=== PATIENT | male | born 1965 | race Caucasian/White ===

== ENCOUNTER 2022-06-22 14:22 | Observation (INO) ==
[2022-06-22 15:10] LABS: Basophils # (auto) 0.09 K/uL (0-0.2); Basophils % (auto) 0.9 %; Eosinophils # (auto) 0.08 K/uL (0-0.50); Eosinophils % (auto) 0.8 %; Hematocrit (blood only) 41.5 % (40.1-51.0); Hemoglobin 14.3 g/dl (14.0-18.0); Immature Granulocytes # (auto) 0.04 K/uL (0.00-0.02); Immature Granulocytes % (auto) 0.4 %; Lymphocytes # (auto) 2.03 K/uL (1.2-3.4); Lymphocytes % (auto) 19.3 %; Mean Corpuscular Hemoglobin 29.9 pg (25.0-34.0); Mean Corpuscular Hgb Conc 34.5 g/dL (32.0-36.0); Mean Corpuscular Volume 86.6 fL (80.0-100.0); Mean Platelet Volume 10.7 fL (9.4-12.4); Monocytes # (auto) 1.88 K/uL (0.24-0.82); Monocytes % (auto) 17.8 %; Neutrophils # (auto) 6.42 K/uL (1.4-6.5); Neutrophils % (auto) 60.8 %; Platelet Count 353 K/uL (130-400); RDW Coefficient of Variation 15.9 % (11.5-14.5); RDW Standard Deviation 50.6 fL (36.4-46.3); Red Blood Count 4.79 M/uL (4.63-6.08); White Blood Count 10.54 K/ul (4.8-10.8)
--- NOTE | 2022-06-22 15:21 | Emergency Department Note ---
History of Present Illness General Chief complaint: Chest Pain Stated complaint: SHORTNESS OF BREATH, CHEST PAIN Time Seen by Provider: 06/22/22 14:59 Source: patient, RN notes reviewed and old records reviewed Mode of arrival: ambulatory Limitations: no limitations History of Present Illness Maximum Pain Intensity: 4 This patient is a 57-year-old male who has a history of metastatic non-small cell lung cancer comes in after leaving having left-sided chest pain. It radiates to his back he is also been short of breath. The chest pain has been for couple months and the shortness of breath has been for about 3 weeks just had some hoarseness for about the same time. No sore throat. No fever that he knows of he has had some cough which has been chronic he said the pain got worse last night so he came here. He was initially diagnosed with lung cancer in October 2018 it was stage IV he had mets to his brain he had gamma knife surgery he said he did 3 months of Keytruda and chemo and after that did they did another 6 to 12 months okay Truvada and they saw something on his lung so they stopped the Keytruda August 2020 he had follow-up CT scans and MRIs about every 3 months but he said there is no changes so he stopped going and he has not been seen by anybody for about a year. No history of pneumothorax he may have had a small blood clot at 1 point he is on no blood thinners. He is not currently taking any medication Home Medications Medication Instructions Recorded Confirmed Type nebulizers #1 ea 09/25/19 05/12/20 Rx ipratropium 0.5 mg-albuterol 3 mg 3 ml inhalation Q8H PRN shortness 10/21/19 05/12/20 Rx (2.5 mg base)/3 mL nebulization of breath or wheezing #180 mL soln nebulizers (AeroEclipse II #1 ea 10/21/19 05/12/20 Rx Nebulizer) omeprazole 20 mg capsule,delayed 20 mg PO QAM 10/21/19 05/12/20 History release nebulizer accessories #1 ea 12/09/19 05/12/20 Rx nebulizer accessories #1 ea 05/12/20 05/12/20 Rx Allergies Allergy/AdvReac Type Severity Reaction Status Date / Time No Known Allergies Allergy Unknown Verified 05/12/20 08:50 Past Med/Surg History Medical History COPD (chronic obstructive pulmonary disease) Coronary artery disease S/p three stents Heartburn FREQUENT History of chemotherapy History of pneumonia FEW WEEKS AGO, RESOLVED Metastatic cancer to brain Metastatic non-small cell lung cancer DX 2018 Status post gamma knife treatment 10/16/17 Surgical History H/O arthroscopy of right knee History of bronchoscopy 09/28/17 History of heart artery stent Stents x 3 History of surgery Right ankle as a child History of surgery PORT, RIGHT UPPER CHEST Hx of cardiac catheterization 1ST CATH 2005 (X2 STENTS- LAD and OM), MOST RECENT CATH 2015 - (STENT X1 to RCA) S/P bronchoscopy with biopsy (10/31/19) Navigational Bronchoscopy with Biopsy Dr. Freeman 10-31-19 Family History Mother , 83yo Dementia Father , 67yo Diabetes Myocardial infarction Melanoma Cancer Brother , 57yo Cerebral aneurysm Brother Polio Sister Stroke Sister No problems noted. Sister Cancer Son No problems noted. 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 [place] Feels Safe at Home: Yes caffeine: Yes (7 cups/day) during the past year weight has: remained stable Assistive Devices: Glasses Review of Systems A total of 10 systems reviewed and were otherwise negative Physical Exam Vital Signs Vital Signs - 24 hr 06/22/22 14:22 06/22/22 14:53 06/22/22 14:53 Temperature 36.8 C Temperature Source Temporal Artery Scan Pulse Rate 101 H 94 H Pulse Rate [Apical] Pulse Rhythm Regular Pulse Rhythm [Apical] Pulse Strength [Apical] Respiratory Rate 18 18 Respiratory Effort / Characteristics Respiratory Depth Normal Respiratory Pattern Blood Pressure 122/82 Blood Pressure [Right Arm] Blood Pressure Mean 95 Blood Pressure Mean [Right Arm] Blood Pressure Position [Right Arm] Pulse Oximetry 98 96 Oxygen Delivery Method Room Air Room Air Room Air Oxygen Flow Rate 96 Sepsis Recent Fever Within 48 Hours No Sepsis New/Unexplained Change in Mental Status No Sepsis Action Taken by Nursing No Action Required 06/22/22 14:38 06/22/22 14:45 06/22/22 14:45 Temperature Temperature Source Pulse Rate 95 H 95 H Pulse Rate [Apical] Pulse Rhythm Pulse Rhythm [Apical] Pulse Strength [Apical] Respiratory Rate 25 H 20 Respiratory Effort / Characteristics Respiratory Depth Respiratory Pattern Blood Pressure 120/84 Blood Pressure [Right Arm] Blood Pressure Mean 96 Blood Pressure Mean [Right Arm] Blood Pressure Position [Right Arm] Pulse Oximetry Oxygen Delivery Method Oxygen Flow Rate Sepsis Recent Fever Within 48 Hours Sepsis New/Unexplained Change in Mental Status Sepsis Action Taken by Nursing 06/22/22 15:00 06/22/22 15:00 06/22/22 15:30 Temperature Temperature Source Pulse Rate 94 H Pulse Rate [Apical] Pulse Rhythm Pulse Rhythm [Apical] Pulse Strength [Apical] Respiratory Rate 17 Respiratory Effort / Characteristics Respiratory Depth Respiratory Pattern Blood Pressure 121/90 119/72 Blood Pressure [Right Arm] Blood Pressure Mean 100 87 Blood Pressure Mean [Right Arm] Blood Pressure Position [Right Arm] Pulse Oximetry Oxygen Delivery Method Oxygen Flow Rate Sepsis Recent Fever Within 48 Hours Sepsis New/Unexplained Change in Mental Status Sepsis Action Taken by Nursing 06/22/22 15:30 06/22/22 14:22 06/22/22 14:53 Temperature Temperature Source Pulse Rate 93 H Pulse Rate [Apical] 89 Pulse Rhythm Pulse Rhythm [Apical] Regular Pulse Strength [Apical] Normal Respiratory Rate 20 22 Respiratory Effort / Characteristics Non-Labored Non-Labored Respiratory Depth Normal Respiratory Pattern Regular Blood Pressure Blood Pressure [Right Arm] 159/110 H Blood Pressure Mean Blood Pressure Mean [Right Arm] 126 Blood Pressure Position [Right Arm] Lying Pulse Oximetry 97 97 Oxygen Delivery Method Room Air Room Air Oxygen Flow Rate Sepsis Recent Fever Within 48 Hours Sepsis New/Unexplained Change in Mental Status Sepsis Action Taken by Nursing General: Well developed well nourished chronically ill-appearing older male who is somewhat hoarse but alert O x3 answers all questions appropriately in no acute distress, breathing comfortably on room air. Normal speech HEENT: Normal cephalic atraumatic. Pupils are equal round and reactive to light. Extraocular movements are intact. Oropharynx is pink with moist mucous membranes. No swelling of the mouth lips or tongue. Neck: Supple with a midline trachea. No meningeal signs or stiffness, no JVD or bruits. No Stridor. Chest: Scattered wheezes to auscultation bilaterally butgood air movement. No increased work of breathing. Heart: Regular rate and rhythm without murmurs or gallops. Abdomen: Soft nontender, nondistended without rebound guarding or rigidity. Extremities: No cyanosis clubbing or edema. No calf tenderness or assymetry Spine/Back. Non tender to palpation. No CVA tenderness Skin: Good turgor without rashes. Neurologic exam: Cranial nerves two through 12 are intact. Motor and sensation are intact and symmetrical throughout. Course Administered Medications Discontinued Medications Ioversol (Optiray 300 500ml) 110 ml IV ONCE ONE Stop: 06/22/22 16:38 Last Admin: 06/22/22 16:38 Dose: 110 ml Documented By: EVENS Morphine Sulfate (Morphine Sulfate 2 Mg/Ml Carp) 2 mg IV NOW STA Stop: 06/22/22 17:12 Last Admin: 06/22/22 17:36 Dose: 2 mg Documented By: JASON Ondansetron HCl (Ondansetron Inj 2 Mg/Ml 2 Ml Vial) 4 mg IV NOW STA Stop: 06/22/22 17:12 Last Admin: 06/22/22 17:36 Dose: 4 mg Documented By: JASON Medical Decision Making Differential Diagnosis Lung cancer, pneumothorax, infection, complication related to chemo or cancer, pneumothorax, PE, acute coronary syndrome, arrhythmia Medical Records Attestation: I reviewed the patient's medical records. Home Medications Current Medication List: was personally reviewed by me Laboratory Data Attestation: I reviewed the patient's lab results. Result diagrams: 06/22/22 14:45 06/22/22 14:45 Lab Results 06/22/22 06/22/22 06/22/22 Range/Units 14:45 14:45 14:45 WBC 10.54 (4.8-10.8) K/ul RBC 4.79 (4.63-6.08) M/uL Hgb 14.3 (14.0-18.0) g/dl Hct 41.5 (40.1-51.0) % MCV 86.6 (80.0-100.0) fL MCH 29.9 (25.0-34.0) pg MCHC 34.5 (32.0-36.0) g/dL RDW Std Deviation 50.6 H (36.4-46.3) fL RDW Coeff of Kiana 15.9 H (11.5-14.5) % Plt Count 353 (130-400) K/uL MPV 10.7 (9.4-12.4) fL Immature Gran % (Auto) 0.4 % Neut % (Auto) 60.8 % Lymph % (Auto) 19.3 % [place] % (Auto) 17.8 % Eos % (Auto) 0.8 % Baso % (Auto) 0.9 % Neut # (Auto) 6.42 (1.4-6.5) K/uL Lymph # (Auto) 2.03 (1.2-3.4) K/uL [place] # (Auto) 1.88 H (0.24-0.82) K/uL Eos # (Auto) 0.08 (0-0.50) K/uL Baso # (Auto) 0.09 (0-0.2) K/uL Immature Gran # (Auto) 0.04 H (0.00-0.02) K/uL PT 10.9 (9.0-12.0) Seconds INR 1.0 (0.9-1.1) APTT 30.1 (21.0-31.0) Seconds PTT Ratio 1.1 D-Dimer 1680 H* (0-500) ug/L FEU Sodium 133 L (136-145) mmol/L Potassium 4.0 (3.5-5.1) mmol/L Chloride 102 (98-107) mmol/L Carbon Dioxide 23 (21-32) mmol/L Anion Gap 8 (3-11) BUN 10 (6-23) mg/dl Creatinine 0.56 L (0.6-1.4) mg/dl Est Cr Clr Drug Dosing 146.7 ml/min Est GFR ( Amer) 131.2 ml/min Est GFR (Non-Af Amer) 113.2 ml/min BUN/Creatinine Ratio 17.9 (10-20) Glucose 95 (70-99(Fasting)) mg/dl Calcium 9.8 (8.5-10.1) mg/dl Magnesium 1.7 (1.7-2.4) mg/dl Total Bilirubin 0.5 (0.2-1.0) mg/dl AST 43 H (13-39) U/L ALT 43 (7-52) U/L Alkaline Phosphatase 176 H (34-104) U/L Troponin I High Sens 3.8 (0-20) pg/ml B-Natriuretic Peptide (0-100) pg/ml Total Protein 6.7 (6.0-8.3) gm/dl Albumin 3.5 (3.4-5.0) gm/dl Globulin 3.2 (2.5-4.0) gm/dl Albumin/Globulin Ratio 1.1 (0.9-2) SARS-CoV-2 (PCR) (Negative) Influenza Type A (PCR) (Neg) Influenza Type B (PCR) (Neg) RSV (RT-PCR) (Neg) 06/22/22 06/22/22 Range/Units 14:45 17:26 WBC (4.8-10.8) K/ul RBC (4.63-6.08) M/uL Hgb (14.0-18.0) g/dl Hct (40.1-51.0) % MCV (80.0-100.0) fL MCH (25.0-34.0) pg MCHC (32.0-36.0) g/dL RDW Std Deviation (36.4-46.3) fL RDW Coeff of Kiana (11.5-14.5) % Plt Count (130-400) K/uL MPV (9.4-12.4) fL Immature Gran % (Auto) % Neut % (Auto) % Lymph % (Auto) % [place] % (Auto) % Eos % (Auto) % Baso % (Auto) % Neut # (Auto) (1.4-6.5) K/uL Lymph # (Auto) (1.2-3.4) K/uL [place] # (Auto) (0.24-0.82) K/uL Eos # (Auto) (0-0.50) K/uL Baso # (Auto) (0-0.2) K/uL Immature Gran # (Auto) (0.00-0.02) K/uL PT (9.0-12.0) Seconds INR (0.9-1.1) APTT (21.0-31.0) Seconds PTT Ratio D-Dimer (0-500) ug/L FEU Sodium (136-145) mmol/L Potassium (3.5-5.1) mmol/L Chloride (98-107) mmol/L Carbon Dioxide (21-32) mmol/L Anion Gap (3-11) BUN (6-23) mg/dl Creatinine (0.6-1.4) mg/dl Est Cr Clr Drug Dosing ml/min Est GFR ( Amer) ml/min Est GFR (Non-Af Amer) ml/min BUN/Creatinine Ratio (10-20) Glucose (70-99(Fasting)) mg/dl Calcium (8.5-10.1) mg/dl Magnesium (1.7-2.4) mg/dl Total Bilirubin (0.2-1.0) mg/dl AST (13-39) U/L ALT (7-52) U/L Alkaline Phosphatase (34-104) U/L Troponin I High Sens (0-20) pg/ml B-Natriuretic Peptide 37 (0-100) pg/ml Total Protein (6.0-8.3) gm/dl Albumin (3.4-5.0) gm/dl Globulin (2.5-4.0) gm/dl Albumin/Globulin Ratio (0.9-2) SARS-CoV-2 (PCR) NEGATIVE (Negative) Influenza Type A (PCR) Negative (Neg) Influenza Type B (PCR) Negative (Neg) RSV (RT-PCR) Negative (Neg) Imaging Data Attestation: I personally reviewed and interpreted this imaging study as follows: My Impression: Chest x-raythere is a large mass in the left hilum. This is concerning for a lung tumor, particularly given his history. I do not see any pneumothorax or CHF Radiologist's Impression: Chest X-Ray 06/22/22 14:53 XR chest 1V portable HISTORY: 57 years-old Male SOB acute shortness of breath. Follow-up study in a patient with reported known history of lung cancer. COMPARISON: Chest CT 04/25/2021 TECHNIQUE: Portable AP view of the chest FINDINGS: Cardiac silhouette is normal in size. Right IJ [id number] catheter. No pneumothorax. Emphysema with chronic fibrotic changes. There is a 9.3 cm masslike consolidation within the left perihilar/suprahilar distribution. There are adjacent ill-defined consolidative opacities centered around the left midlu ng. Bones appear to be grossly intact. Hiatal hernia. IMPRESSION: 1. 9.3 cm masslike consolidation centered around the left hilum is suggestive of malignancy. 2. Left midlung predominant consolidative opacities may represent postobstructive pneumonitis. 3. Emphysema. 4. Small hiatal hernia. ACT 112: Negative or not required by law. The above report was generated using voice recognition software. It may contain grammatical, syntax or spelling errors. Electronically signed by: Grayson Ruiz M.D. 06/22/2022 3:37 PM Chest CTA 06/22/22 16:06 CT angio chest PE protocol CT DOSE: 544.63 mGy.cm HISTORY: 57 years-old Male with PE. Acute shortness breath in a patient with history of lung cancer TECHNIQUE: Multiple CTA images of the chest were obtained after the intravenous administration of 110 ml Optiray. Coronal and sagittal MIPS were obtained from the axial data set and were submitted for review. All measurements were obtained according to NASCET criteria. A dose lowering technique was utilized adhering to the principles of ALARA. COMPARISON: Chest radiograph of same day, chest CT 04/25/2021, CT abdomen and pelvis 12/22/2020 FINDINGS: CTA: The heart is normal in size. Trace pericardial effusion. Moderate coronary artery calcifications. No thoracic aortic aneurysm or dissection. There is marked narrowing of the left main pulmonary artery and left upper lobar, segmental and subsegmental branches secondary to the large mass as described below. No definite pulmonary emboli are identified. CT CHEST: Unchanged 1.2 cm nodule adjacent to the upper left esophagus on image 302. Metastatic nodules within the upper mediastinum include a 1.6 x 2.0 cm nodule adjacent to the proximal left subclavian and common carotid arteries. Several additional nodules also present. 9 mm epicardial nodule noted on image 141. There is a large heterogeneous infiltrative mass involving the mediastinum, left hilum and left upper lobe and lingula crossing the fissure into the superior segment of the left lower lobe which measures approximately 11.7 x 10.8 x 9 cm. The mass encases and narrows the left main pulmonary artery and distal branches as well as the left upper pulmonary vein. There is encasement with narrowing of the left upper lobe bronchi. Several distal bronchi are opacified. There is also rightward deviation with narrowing of the trachea and left mainstem bronchus. There is intralobular septal thickening throughout the left upper lobe and lingula with irregular groundglass and consolidative opacities and nodular densities. Irregular 4.3 cm opacity of the lingula but the fissure on image 161. There are numerous pleural implants noted throughout the left hemithorax with small malignant left pleural effusion. Subpleural nodules measuring up to 1.6 cm on image 218. Moderate pulmonary emphysema. There are no new suspicious nodules noted within the right lung. Diffuse esophageal wall thickening. The mass abuts and displaces the midthoracic esophagus. Moderate sized hiatal hernia. Thickening of the bilateral adrenal glands, unchanged. Innumerable hepatic metastasis, new from prior measuring up to approximately 2.6 cm. Mild gynecomastia. No destructive bone lesions are identified. Chronic mild superior endplate compression deformities of the upper thoracic spine. IMPRESSION: 1. There is a large heterogeneous infiltrative mass involving the mediastinum, left hilum, left upper lobe and lingula crossing into the superior segment of the left lower lobe measuring up to 11.7 cm. Primary bronchogenic carcinoma is the diagnosis of exclusion. The mass encases and narrows the adjacent bronchi, pulmonary arteries and veins. 2. No pulmonary emboli identified. 3. Postobstructive pneumonitis of the left upper lobe and lingula with findings suggestive of lymphangitic carcinomatosis and probable left upper lobe and lingular satellite pulmonary metastasis. 4. Lymphatic metastasis with left-sided pleural metastatic disease and small malignant left pleural effusion. 5. Innumerable hepatic metastasis. 6. Incidental findings as above. ACT 112: Negative or not required by law. The above report was generated using voice recognition software. It may contain grammatical, syntax or spelling errors. Electronically signed by: Grayson Ruiz M.D. 06/22/2022 5:02 PM ECG Data Attestation: I personally reviewed and interpreted this ECG as follows: Indication: + chest pain and + SOB/dyspnea Rate (beats per minute): 98 Rhythm: + normal sinus ECG Intervals/blocks: + Normal QRS, + Normal QT and + Normal MD ECG [place]: + Normal ECG ST segments: + Normal ST segments ECG Findings: no PACs or no PVCs Comparison ECG Date: from (10/27/18) Change: no significant change MDM Narrative This patient is a 57-year-old male who comes in after having chest pain and shortness of breath. It is been going on for several weeks to months is gotten worse he stopped following up with oncology and has metastatic cancer so I am concerned it could be related to that he is also at risk for infection or blood clot or cardiac disease. He was placed on a monitor car operator and before. EKG shows normal sinus rhythm without ischemic changes. Chest x-ray was obtained and he has a lung mass in the left lung field. No pneumothorax. His D-dimer was elevated I did a CTA of his chest and he has a large invasive bronchogenic appearing tumor. He is given morphine 4 mg IV and Zofran 4 mg IV. EKG does not suggest acute coronary syndrome or arrhythmia. His troponin is not elevated. The rest of his labs look good. I do think he should be admitted for pain pain management and further treatment and evaluation as at this point he has been getting no care for this for the past year or so. I have consulted the hospitalist to see him in ER for these measures Continuous cardiac monitoring: Orders placed in EMR for continuous cardiac monitoring. Upon my interpretation patient noted to be in normal sinus with a rate of 90 Impression & Plan Chest pain, Tobacco abuse, Lung tumor, Metastatic non-small cell lung cancer, COVID Discharge Plan Visit Data Chief Complaint: Chest Pain Stated Complaint: SHORTNESS OF BREATH, CHEST PAIN ED Provider: Atilio Elizabeth Discharge Problem: Chest pain, Tobacco abuse, Lung tumor, Metastatic non-small cell lung cancer, COVID Forms Stand Alone Forms: [facility] [employer] Prescriptions Prescriptions: No Action (DME) nebulizers misc See Rx Instructions .ROUTE .MEDSUPPLY Qty: 1 0RF Rx Instructions: Q 4HR WITH TUBING & SUPPLIES - COPD J44.9 ipratropium-albuterol 0.5 mg-3 mg(2.5 mg base)/3 mL solution for nebulization 3 ml INH Q8H PRN (Reason: shortness of breath or wheezing) Qty: 180 2RF (DME) AeroEclipse II Nebulizer Misc See Rx Instructions .ROUTE .MEDSUPPLY Qty: 1 0RF Rx Instructions: As directed budesonide-formoterol [Symbicort] 160-4.5 mcg/actuation HFA aerosol inhaler 0RF tiotropium bromide [Spiriva Respimat] 1.25 mcg/actuation mist 0RF (DME) nebulizer accessories Kit See Rx Instructions .ROUTE .MEDSUPPLY Qty: 1 0RF Rx Instructions: TUBING & SUPPLIES : (DME) nebulizer accessories Kit See Rx Instructions .ROUTE .MEDSUPPLY Qty: 1 0RF Rx Instructions: Nebulizer kits DX COPD J44.9 omeprazole 20 mg Capsule,Delayed Release(Dr/Ec) 20 mg PO QAM Referrals Referrals: Rahat Caballero [Primary Care Provider] -
[2022-06-22 15:35] LABS: D Dimer 1680 ug/L FEU (0-500)
[2022-06-22 15:36] LABS: Troponin I High Sensitivity 3.8 pg/ml (0-20)
[2022-06-22 15:37] LABS: Partial Thromboplastin Ratio 1.1; Partial Thromboplastin Time 30.1 Seconds (21.0-31.0); Prothrombin Time 10.9 Seconds (9.0-12.0)
--- NOTE | 2022-06-22 15:39 | XRay Report ---
XR chest 1V portable HISTORY: 57 years-old Male SOB acute shortness of breath. Follow-up study in a patient with reported known history of lung cancer. COMPARISON: Chest CT 04/25/2021 TECHNIQUE: Portable AP view of the chest FINDINGS: Cardiac silhouette is normal in size. Right IJ [id number] catheter. No pneumothorax. Emphysema wit h chronic fibrotic changes. There is a 9.3 cm masslike consolidation within the left perihilar/suprah ilar distribution. There are adjacent ill-defined consolidative opacities centered around the left mi dlung. Bones appear to be grossly intact. Hiatal hernia. IMPRESSION: 1. 9.3 cm masslike consolidation centered around the left hilum is suggestive of malignancy. 2. Left midlung predominant consolidative opacities may represent postobstructive pneumonitis. 3. Emphysema. 4. Small hiatal hernia. ACT 112: Negative or not required by law. The above report was generated using voice recognition software. It may contain grammatical, syntax o r spelling errors. Electronically signed by: Grayson Ruiz M.D. 06/22/2022 3:37 PM
[2022-06-22 15:40] LABS: Albumin Globulin Ratio 1.1 (0.9-2); Albumin Level 3.5 gm/dl (3.4-5.0); BUN Creatinine Ratio 17.9 (10-20); Bilirubin,Total 0.5 mg/dl (0.2-1.0); Calcium 9.8 mg/dl (8.5-10.1); Creatinine Clr Calc Pharmacy 146.7 ml/min; Est GFR (African American) 131.2 ml/min; Est GFR (Non-African American) 113.2 ml/min; Globulin 3.2 gm/dl (2.5-4.0); Magnesium 1.7 mg/dl (1.7-2.4); Total Protein 6.7 gm/dl (6.0-8.3)
--- NOTE | 2022-06-22 16:12 | Electrocardiogram Report ---
Test Reason : Blood Pressure : / mmHG Vent. Rate : 098 BPM Atrial Rate : 098 BPM P-R Int : 140 ms QRS Dur : 076 ms QT Int : 338 ms P-R-T Axes : 085 059 081 degrees QTc Int : 431 ms Normal sinus rhythm Normal ECG When compared with ECG of 26-SEP-2019 15:13, Premature supraventricular complexes are no longer Present Confirmed by Rahat Castro ([id number]) on 06/22/2022 4:12:18 PM Referred By: ER Confirmed By:Rahat Castro
[2022-06-22] MEDS ORDERED: OPTIRAY 300 500mL IV ONE (16:37)
--- NOTE | 2022-06-22 17:04 | CT Scan Report ---
CT angio chest PE protocol CT DOSE: 544.63 mGy.cm HISTORY: 57 years-old Male with PE. Acute shortness breath in a patient with history of lung cancer TECHNIQUE: Multiple CTA images of the chest were obtained after the intravenous administration of 110 ml Optiray. Coronal and sagittal MIPS were obtained from the axial data set and were submitted for review. All measurements were obtained according to NASCET criteria. A dose lowering technique was u tilized adhering to the principles of ALARA. COMPARISON: Chest radiograph of same day, chest CT 04/25/2021, CT abdomen and pelvis 12/22/2020 FINDINGS: CTA: The heart is normal in size. Trace pericardial effusion. Moderate coronary artery calcifications. No thoracic aortic aneurysm or dissection. There is marked narrowing of the left main pulmonary artery a nd left upper lobar, segmental and subsegmental branches secondary to the large mass as described bel ow. No definite pulmonary emboli are identified. CT CHEST: Unchanged 1.2 cm nodule adjacent to the upper left esophagus on image 302. Metastatic nodules within the upper mediastinum include a 1.6 x 2.0 cm nodule adjacent to the proximal left subclavian and comm on carotid arteries. Several additional nodules also present. 9 mm epicardial nodule noted on image 1 41. There is a large heterogeneous infiltrative mass involving the mediastinum, left hilum and left upper lobe and lingula crossing the fissure into the superior segment of the left lower lobe which measure s approximately 11.7 x 10.8 x 9 cm. The mass encases and narrows the left main pulmonary artery and d istal branches as well as the left upper pulmonary vein. There is encasement with narrowing of the le ft upper lobe bronchi. Several distal bronchi are opacified. There is also rightward deviation with n arrowing of the trachea and left mainstem bronchus. There is intralobular septal thickening throughou t the left upper lobe and lingula with irregular groundglass and consolidative opacities and nodular densities. Irregular 4.3 cm opacity of the lingula but the fissure on image 161. There are numerous p leural implants noted throughout the left hemithorax with small malignant left pleural effusion. Subp leural nodules measuring up to 1.6 cm on image 218. Moderate pulmonary emphysema. There are no new joaquin spicious nodules noted within the right lung. Diffuse esophageal wall thickening. The mass abuts and displaces the midthoracic esophagus. Moderate sized hiatal hernia. Thickening of the bilateral adrenal glands, unchanged. Innumerable hepatic metas tasis, new from prior measuring up to approximately 2.6 cm. Mild gynecomastia. No destructive bone le sions are identified. Chronic mild superior endplate compression deformities of the upper thoracic sp ine. IMPRESSION: 1. There is a large heterogeneous infiltrative mass involving the mediastinum, left hilum, left upper lobe and lingula crossing into the superior segment of the left lower lobe measuring up to 11.7 cm. Primary bronchogenic carcinoma is the diagnosis of exclusion. The mass encases and narrows the adjace nt bronchi, pulmonary arteries and veins. 2. No pulmonary emboli identified. 3. Postobstructive pneumonitis of the left upper lobe and lingula with findings suggestive of lymphan gitic carcinomatosis and probable left upper lobe and lingular satellite pulmonary metastasis. 4. Lymphatic metastasis with left-sided pleural metastatic disease and small malignant left pleural e ffusion. 5. Innumerable hepatic metastasis. 6. Incidental findings as above. ACT 112: Negative or not required by law. The above report was generated using voice recognition software. It may contain grammatical, syntax o r spelling errors. Electronically signed by: Grayson Ruiz M.D. 06/22/2022 5:02 PM
[2022-06-22] MEDS ORDERED: MoRPHine SULFATE 2 MG/ML CARP IV STA (17:11)
[2022-06-22] MEDS ORDERED: ONDANSETRON INJ 2 MG/ML 2 ML VIAL IV STA (17:11)
--- NOTE | 2022-06-22 18:32 | History & Physical Report ---
Date of Service June 22, 2022 Assessment & Plan (1) Metastatic non-small cell lung cancer: Plan: Metastatic non-small cell lung cancer - imaging shows large left sided lung mass with hepatic metastasis, postobstructive pneumonitis of the left upper lobe and lingula suggestive of left upper lobe and lingular satellite pulmonary metastasis - positive d-dimer but no evidence of PE on imaging - he would like to pursue treatment options; will consult oncology Chest Pain - EKG without ischemic changes and negative troponin - Most likely secondary to lung mass - Pain Regimen: Ibuprofen prn, IV morphine 2mg q4 prn for severe pain COPD - Was on inhalers prior, but has not used in over a year - DUONEB prn History of VTE - Was on Eliquis before he stopped his medications in 2020 for history of PE - Will need to discuss need for anticoagulation going forward Tobacco Abuse - 40 pack year smoking history - currently smokes 1 pack day - declined nicotine patch VTE Prophylaxis: Lovenox 40 mg Dispo: Admit to Med Surg DNR/DNI (2) Chest pain: (3) COPD (chronic obstructive pulmonary disease): (4) Tobacco abuse: (5) Coronary artery disease: History of Present Illness Chief Complaint: Chest Pain Primary Care Provider: Rahat Caballero 57 year old male with a past medical history of metastatic non-small cell lung cancer, COPD, PE presents with left sided chest pain. He was diagnosed with stage IV lung cancer with mets to the brain in 2016. He was treated with Keytruda, treatment was complicated by lapses in insurance. He also underwent GammaKnife to the brain in 10/2017. He was last seen by oncology 06/[address] scan was stable from prior scans, he was to follow up in 3 months but never did. He was been increased dyspnea for the past 3 months. He has also been having chest pain that has gotten worse over the past 3 weeks. It's left sided and radiates to scapula and ribs. Also has a chronic cough that is productive of yellow sputum. He is not currently taking any medications. He is currently homeless and has been living out of his truck. ED course was significant for EKG normal sinus rhythm without ischemic changes. Lung mass in left lung field seen on CXR without pneumothorax. + D dimmer, CTA without evidence of PE, showed large invasive bronchogenic appearing tumor. Troponin= 3.8. Allergies Allergy/AdvReac Type Severity Reaction Status Date / Time No Known Allergies Allergy Unknown Verified 05/12/20 08:50 Home Medications Medication Instructions Recorded Confirmed Type nebulizers #1 ea 09/25/19 06/25/22 Rx nebulizers (AeroEclipse II #1 ea 10/21/19 06/25/22 Rx Nebulizer) omeprazole 20 mg capsule,delayed 20 mg PO QAM 10/21/19 06/25/22 History release nebulizer accessories #1 ea 12/09/19 06/25/22 Rx nebulizer accessories #1 ea 05/12/20 06/25/22 Rx ipratropium 20 mcg-albuterol 100 1 puff inhalation Q6H #4 grams 06/26/22 Rx mcg/actuation mist for inhalation (Combivent Respimat) Past Med/Surg History Medical History (Updated 06/22/22 @ 19:49 by Gayle Faust DO) COPD (chronic obstructive pulmonary disease) Coronary artery disease S/p three stents Heartburn FREQUENT History of chemotherapy History of pneumonia FEW WEEKS AGO, RESOLVED History of pulmonary embolism Metastatic cancer to brain Metastatic non-small cell lung cancer DX 2018 Status post gamma knife treatment 10/16/17 Surgical History H/O arthroscopy of right knee History of bronchoscopy 09/28/17 History of heart artery stent Stents x 3 History of surgery Right ankle as a child History of surgery PORT, RIGHT UPPER CHEST Hx of cardiac catheterization 1ST CATH 2005 (X2 STENTS- LAD and OM), MOST RECENT CATH 2015 - (STENT X1 to RCA) S/P bronchoscopy with biopsy (10/31/19) Navigational Bronchoscopy with Biopsy Dr. Freeman 10-31-19 Family History Mother , 83yo Dementia Father , 67yo Diabetes Myocardial infarction Melanoma Cancer Brother , 57yo Cerebral aneurysm Brother Polio Sister Stroke Sister No problems noted. Sister Cancer Son No problems noted. 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 [place] How many Children do You have: 1 Feels Safe at Home: Yes caffeine: Yes (7 cups/day) during the past year weight has: remained stable Assistive Devices: None Review of Systems Constitutional: no fever, no sweats and no fatigue Respiratory: + cough, + dyspnea and + sputum production; no hemoptysis Cardiovascular: + chest pain and + dyspnea; no edema Gastrointestinal: no abdominal pain, no nausea and no vomiting Neurologic: no dizziness and no headache(s) Physical Exam Physical Exam: Constitutional: well-appearing, no acute distress HEENT: NCAT, no conjunctival injection CV: regular rhythm, no murmur appreciated, extremities well-perfused, no LE edema; has portal present right side of chest Resp: CTABL, no wheezes/rales/rhonchi appreciated, no increased work of breathing GI: soft, nondistended, nontender, BS normoactive MSK: no gross deformities appreciated Skin: warm, dry, no rash appreciated Neuro: alert, oriented, no focal neurologic deficit appreciated Results & Data Results & Data ([facility]) Vital Signs (Past 12 Hours) Vital Signs Temp Pulse Pulse Resp BP BP Pulse Ox 06/22/22 14:53 97 06/22/22 14:22 89 22 159/110 H 97 06/22/22 15:30 93 H 20 06/22/22 15:30 119/72 06/22/22 15:00 94 H 17 06/22/22 15:00 121/90 06/22/22 14:45 120/84 06/22/22 14:45 95 H 20 06/22/22 14:38 95 H 25 H 06/22/22 14:53 94 H 18 96 06/22/22 14:53 06/22/22 14:22 36.8 C 101 H 18 122/82 98 O2 Del Method O2 Flow Rate 06/22/22 14:53 Room Air 06/22/22 14:22 Room Air 06/22/22 15:30 06/22/22 15:30 06/22/22 15:00 06/22/22 15:00 06/22/22 14:45 06/22/22 14:45 06/22/22 14:38 06/22/22 14:53 Room Air 06/22/22 14:53 Room Air 96 06/22/22 14:22 Room Air Code Status & VTE Plan Code Status DNR/DNI VTE Prophylaxis Plan VTE Prophylaxis will be ordered: Yes Supervising Physician Co-Signing Physician Notes Patient seen and examined at bedside. During face to face encounter obtained a history and physical examination. I reviewed above note and agree with it. Plan of care discussed with patient and Dr. Faust Patient is admitted with lung cancer. will consult oncology Resident Activity Tracking Resident Involvement: Resident Care Provided Care Provided: Adult Hospital Medicine (1) Chest pain Chest pain type: chest pain on breathing Qualified Code(s): R07.1 - Chest pain on breathing
[2022-06-22 18:43] LABS: Influenza A virus by PCR Negative (Neg); Influenza B virus by PCR Negative (Neg); RSV by PCR Negative (Neg); SARS CoV2 RNA(COVID-19) InHosp NEGATIVE (Negative)
[2022-06-22] MEDS ORDERED: ENOXAPARIN INJ 40 MG/0.4 ML SYR SQ STA (21:20)
[2022-06-22] MEDS ORDERED: MoRPHine SULFATE 2 MG/ML CARP IV PRN (22:10)
[2022-06-22] MEDS ORDERED: PANTOprazole 40 MG TAB PO STA (23:16)
[2022-06-23] MEDS: IBUPROFEN 600 MG TAB PO PRN ×2 (07:13→20:51)
[2022-06-23] MEDS: HEPARIN 100 UNIT/ML 5ML FLUSH FLUSH PRN (07:38)
[2022-06-23 08:29] LABS: Basophils # (auto) 0.09 K/uL (0-0.2); Eosinophils # (auto) 0.12 K/uL (0-0.50); Eosinophils % (auto) 1.4 %; Hematocrit (blood only) 38.1 % (40.1-51.0); Hemoglobin 13.3 g/dl (14.0-18.0); Immature Granulocytes # (auto) 0.03 K/uL (0.00-0.02); Immature Granulocytes % (auto) 0.3 %; Lymphocytes # (auto) 1.74 K/uL (1.2-3.4); Lymphocytes % (auto) 19.6 %; Mean Corpuscular Hgb Conc 34.9 g/dL (32.0-36.0); Mean Platelet Volume 11.2 fL (9.4-12.4); Monocytes # (auto) 1.21 K/uL (0.24-0.82); Monocytes % (auto) 13.7 %; Neutrophils # (auto) 5.67 K/uL (1.4-6.5); Platelet Count 316 K/uL (130-400); RDW Coefficient of Variation 15.9 % (11.5-14.5); RDW Standard Deviation 50.3 fL (36.4-46.3); Red Blood Count 4.43 M/uL (4.63-6.08); White Blood Count 8.86 K/ul (4.8-10.8)
[2022-06-23] MEDS: PANTOprazole 40 MG TAB PO SCH (09:00)
[2022-06-23 09:02] LABS: Albumin Globulin Ratio 0.9 (0.9-2); Albumin Level 3.2 gm/dl (3.4-5.0); BUN Creatinine Ratio 18.3 (10-20); Bilirubin,Total 0.5 mg/dl (0.2-1.0); Calcium 9.7 mg/dl (8.5-10.1); Creatinine Clr Calc Pharmacy 136.9 ml/min; Est GFR (African American) 127.6 ml/min; Est GFR (Non-African American) 110.1 ml/min; Globulin 3.4 gm/dl (2.5-4.0); Total Protein 6.6 gm/dl (6.0-8.3)
--- NOTE | 2022-06-23 15:18 | Medical Student Progress Note ---
Date of Service June 23, 2022 Assessment & Plan (1) Metastatic non-small cell lung cancer: Plan: Diogenes is a 57yo male with a past medical hx of metastatic non-small cell lung cancer, COPD, PE (not anticoagulated) presents with left sided chest pain. (1) Metastatic non-small cell lung cancer Consulted oncology who is suggesting a liver biopsy given new findings on chest CT. MRI of brain to assess current status also recommended given time since last imaging. Otherwise pt can f/u with oncology outpt once tissue specimen is obtained to guide further tx. -Consult GI for possible liver biopsy inpatient -MRI brain ordered -Consider pulmonology consult to weigh in on etiology of new onset voice changes in the setting of potential NSCLC mets (2) Chest pain EKG did not show ischemic changes, troponin negative. Pain is likely secondary to lung mass causing increased pressure on pleural lining leading to inflammation. -Continue Ibuprofen prn for pain management. IV morphine 2mg q4 prn for severe pain Plan Normal diet Lovenox 40mg SQ DNR/DNI PCU, plan to discharge after MRI brain and arranging outpt f/u Admission and Anticipated Discharge Date Admission Date: June 22, 2022 Subjective Diogenes is a 57yo male with a past medical hx of metastatic non-small cell lung cancer, COPD, PE (not anticoagulated) presents with left sided chest pain. Pt was initially diagnosed with metastatic non-small cell lung cancer in 2017. He received intermittent treatment with Keytruda and GammaKnife to the brain but has had lapses in treatment due to issues with insurance and has not been seen or received oncologic treatment since 06/2021. His follow up scans at that time showed that the cancer was stable, but there is no follow up imaging since then. At present, he reports increased dyspnea x3 months and newly onset chest pain that has worsened over the past 3 weeks. He describes the pain as sharp, localized to the left side of his chest and radiates to the ribs. He relates that the pain is almost always present to some degree, but is significantly worsened when he coughs or becomes short of breath (usually with exertion). He does not usually experience dyspnea at rest. Pt has a chronic cough that he describes as dry, but occasionally wet with yellow/red sputum production. He takes no medications. Pt also expressed concern for a recent change in his voice, he explains it is much more raspy than ever before and is concerned this may be due to his cancer. In the ED: EKG obtained, sinus rhythm, no ischemic changes. CXR revealed left lung mass, no evidence of pneumothorax. D-dimer + (1680). CTA revealed large invasive bronchogenic appearing tumor, but showed no evidence of PE. Troponin 3.8. Review of Systems Review of Systems: All systems reviewed & are unremarkable except as noted in Subjective Physical Exam Constitutional: Well appearing, no acute distress ENMT: +raspy voice Respiratory: normal respiratory effort and + cough +inspiratory wheezes, +diffuse rhonchi Cardiovascular: RRR, no murmur, no edema Skin: no rashes, warm and dry Psychiatric: A+Ox3, euthymic affect Results & Data ([facility]) Vital Signs (Past 12 Hours) Vital Signs Temp Pulse Resp BP Pulse Ox O2 Del Method 06/23/22 15:05 36.6 C 89 16 126/78 92 06/23/22 07:24 36.7 C 92 H 16 124/80 91 06/23/22 07:05 Room Air
--- NOTE | 2022-06-23 15:23 | Hospitalist Progress Note ---
Date of Service June 23, 2022 Assessment & Plan (1) Metastatic non-small cell lung cancer: Plan: Diogenes is a 57 year old male PmHx metastatic non-small cell lung cancer, COPD, PE who presented with chest pain, found to have worsening mediastinal mass. Metastatic non-small cell lung cancer - Past history of metastatic NSC lung cancer, diagnosed 2017 treated with chemotherapy, mets to brain treated with gamma knife radiation. - D-dimer +, CTA w/o evidence of PE however [id number] mediastinal mass with mets to liver. - Discussed w/ Dr. Garcia in oncology, pt will need liver biopsy for pathology diagnosis. - Discussed w/ Radiology, they can biopsy outpatient next week or later. Pt will need to be scheduled. - Ordered brain MRI w/wo contrast to check for further mets. Chest Pain - EKG without ischemic changes and negative troponin - Most likely secondary to pleuritic pain from mediastinal mass. - Pain Regimen: Ibuprofen prn, IV morphine 2mg q4 prn for severe pain COPD - On inhalers prior, but has not used in over a year - Duoneb prn History of VTE - Was on Eliquis before he stopped his medications in 2020 for history of PE - Consider anti-coagulation when discharged with worsening cancer. Tobacco Abuse - 40 pack year smoking history - currently smokes 1 pack day - declined nicotine patch VTE Prophylaxis: Lovenox 40 mg F/E/N/GI: Regular diet. Dispo: Med Surg Code Status: DNR/DNI; Case management working with Arian from [facility] to get patient more immediate housing. May take until Sunday. (2) Chest pain: (3) COPD (chronic obstructive pulmonary disease): (4) Tobacco abuse: (5) Coronary artery disease: Admission and Anticipated Discharge Date Admission Date: June 22, 2022 Supervising Physician Co-Signing Physician Notes I personally interviewed the patient, examined, reviewed labs and studies and agreed with the plan outlined by the resident physician Subjective Patient seen at the bedside today saying that he feels well resting in bed. He says that he's been getting progressively more short of breath with exertion and sometimes at rest over the past 3 months, he also says he's developed a raspy voice in that time frame as well. He does not have any issues with eating, drinking, or breathing at the current time and denies any issues with BM or urinary symptoms. Review of Systems Constitutional: as per Subjective / HPI Physical Exam Constitutional: WD/WN, vitals as above Eyes: PERRL, conjunctivae normal, anicteric sclerae Neck: No masses or asymmetry palpated at the neck anteriorly bilaterally. Respiratory: Diminished breath sounds at the bilateral lower lung rivas, clear to auscultation elsewhere. Cardiovascular: RRR, no murmur, no edema Gastrointestinal (Abdomen): normal bowel sounds, soft, nontender, no hepatosplenomegaly Psychiatric: A+Ox3, euthymic affect Results & Data Results & Data ([facility]) Vital Signs (Past 12 Hours) Vital Signs Temp Pulse Resp BP Pulse Ox O2 Del Method 06/23/22 15:05 36.6 C 89 16 126/78 92 06/23/22 07:24 36.7 C 92 H 16 124/80 91 06/23/22 07:05 Room Air Resident Activity Tracking Resident Involvement: Resident Care Provided Care Provided: Adult Hospital Medicine (1) Chest pain Chest pain type: chest pain on breathing Qualified Code(s): R07.1 - Chest pain on breathing
[2022-06-23] MEDS ORDERED: GADOBUTROL 65ML VIAL IV ONE (20:27)
[2022-06-23] MEDS: ENOXAPARIN INJ 40 MG/0.4 ML SYR SQ SCH (20:52)
--- NOTE | 2022-06-23 21:35 | Magnetic Resonance Report ---
MRI OF THE BRAIN COMBO CLINICAL HISTORY: Metastatic lung cancer. COMPARISON STUDY: MRI of the brain dated 08/10/2021. TECHNIQUE: MRI of the brain was performed utilizing various T1 and T2-weighted sequences in the axial , sagittal, and coronal planes. Contrast-enhanced sequences were acquired following the administratio n of 9 cc of Gadavist. FINDINGS: Brain parenchyma: There is age-related involutional change and mild subcortical and periventricular m icroangiopathic disease. A developmental venous anomaly is incidentally noted in the right parietal l obe. There is no hemorrhage or mass effect. There is no restricted diffusion typical for acute ischem ia. A focus of left occipital encephalomalacia is similar to previous. A 7 mm irregular enhancing foc us within the left occipital encephalomalacia is unchanged. No new enhancing lesion is seen. Briseno-whi te matter differentiation is preserved. No extra-axial fluid collection is seen. The cerebellar tonsi ls are normal in configuration. Ventricles, sulci, and cisterns: Prominent secondary to involutional change. Pituitary and sella: Unremarkable. Intracranial vasculature: Normal flow voids are maintained at the skull base. Orbits: The bony orbits are grossly intact. Orbital contents are normal in appearance noting bilatera l ocular lens implants. Sinuses and mastoids: There is trace mucosal thickening throughout the paranasal sinuses. The mastoid air cells are clear. Calvarium: Unremarkable. Cervical cord: Partially visualized cervical spinal cord is normal in morphology and signal intensity . IMPRESSION: 1. There is no evidence of progressive intracranial metastatic disease. No significant change from . 2. A 7 mm irregular enhancing lesion within a region of left occipital encephalomalacia is unchanged from previous. 3. There is no hemorrhage, mass effect, or evidence of acute ischemia. ACT 112: Negative or not required by law. Electronically signed by: Bernard Stanton M.D. 06/23/2022 9:33 PM
[2022-06-24 07:26] LABS: Basophils # (auto) 0.06 K/uL (0-0.2); Basophils % (auto) 0.8 %; Eosinophils # (auto) 0.14 K/uL (0-0.50); Eosinophils % (auto) 1.8 %; Hematocrit (blood only) 37.9 % (40.1-51.0); Hemoglobin 13.3 g/dl (14.0-18.0); Immature Granulocytes # (auto) 0.03 K/uL (0.00-0.02); Immature Granulocytes % (auto) 0.4 %; Lymphocytes # (auto) 1.53 K/uL (1.2-3.4); Lymphocytes % (auto) 19.3 %; Mean Corpuscular Hemoglobin 29.8 pg (25.0-34.0); Mean Corpuscular Hgb Conc 35.1 g/dL (32.0-36.0); Mean Platelet Volume 10.2 fL (9.4-12.4); Monocytes # (auto) 1.03 K/uL (0.24-0.82); Neutrophils # (auto) 5.13 K/uL (1.4-6.5); Neutrophils % (auto) 64.7 %; Platelet Count 302 K/uL (130-400); RDW Coefficient of Variation 15.4 % (11.5-14.5); RDW Standard Deviation 48.1 fL (36.4-46.3); Red Blood Count 4.46 M/uL (4.63-6.08); White Blood Count 7.92 K/ul (4.8-10.8)
[2022-06-24 08:08] LABS: BUN Creatinine Ratio 19.4 (10-20); Calcium 9.7 mg/dl (8.5-10.1); Creatinine Clr Calc Pharmacy 132.5 ml/min; Est GFR (African American) 125.8 ml/min; Est GFR (Non-African American) 108.6 ml/min; Potassium 4.2 mmol/L (3.5-5.1)
[2022-06-24] MEDS: PANTOprazole 40 MG TAB PO SCH (08:32)
[2022-06-24] MEDS: IBUPROFEN 600 MG TAB PO PRN ×2 (08:34→19:07)
--- NOTE | 2022-06-24 10:45 | Hospitalist Progress Note ---
Date of Service June 24, 2022 Assessment & Plan (1) Metastatic non-small cell lung cancer: Plan: 57 yo male with PMHx metastatic non-small cell lung cancer, COPD, PE who presented with chest pain, found to have worsening mediastinal mass. Metastatic non-small cell lung cancer - Past history of metastatic NSC lung cancer, diagnosed 2017 treated with chemotherapy, mets to brain treated with gamma knife radiation. - D-dimer +, CTA w/o evidence of PE however [id number] mediastinal mass with mets to liver. - Discussed w/ Dr. Garcia in oncology, pt will need liver biopsy for pathology diagnosis. - Discussed w/ Radiology, they can biopsy outpatient next week or later. Pt will need to be scheduled. - MRI brain (06/23): No progressive mets. No acute abnormalities. No change from prior imaging. Chest Pain, improving - EKG without ischemic changes and negative troponin - Most likely secondary to pleuritic pain from mediastinal mass. - Pain Regimen: Ibuprofen prn, IV morphine 2mg q4 prn for severe pain COPD - On inhalers prior, but has not used in over a year - Duoneb prn History of VTE - Was on Eliquis before he stopped his medications in 2020 for history of PE - Consider anti-coagulation when discharged with metastatic disease Tobacco Abuse - 40 pack year smoking history - currently smokes 1 pack day - declined nicotine patch VTE Prophylaxis: Lovenox 40 mg F/E/N/GI: Regular Dispo: med surg Code Status: DNR/DNI; Case management working with Arian from [facility] to get patient more immediate housing. May take until Sunday. (2) Chest pain: (3) COPD (chronic obstructive pulmonary disease): (4) Tobacco abuse: (5) Coronary artery disease: Admission and Anticipated Discharge Date Admission Date: June 22, 2022 Supervising Physician Co-Signing Physician Notes Resident Physician Supervision Note: I independently interviewed and examined the patient and verified the martin history and physical, reviewed labs and image studies and agree with resident findings and care plan. Subjective Patient seen at the bedside this morning. Continues to have dyspnea on exertion over past few months. Chest/lung pains better than prior. Denies sob at rest, headache, N/V, abd pain. Review of Systems 2 Review of Systems: All systems reviewed & are unremarkable except as noted in HPI & below Physical Exam Physical Exam: Constitutional: WD/WN, in no acute distress, pleasant. Vitals as above. HEENT: No scleral injection. Moist mucous membranes. Neck: Trachea midline. Lungs: Diminished bibasilar sounds L>R otherwise CTAB, no increased work of breathing or accessory muscle use. Cardiac: RRR. No murmurs. Abdomen: +BS. Soft, nontender, and nondistended.No guarding or rebound tende rness. No hepatosplenomegaly. Skin: No rashes, warm, dry. Psych: AOx3 Results & Data Results & Data ([facility]) Vital Signs (Past 12 Hours) Vital Signs Temp Pulse Resp BP Pulse Ox O2 Del Method 06/24/22 06:31 36.7 C 83 20 116/82 95 Room Air 06/23/22 23:27 36.8 C 86 18 124/82 93 Room Air Laboratory Results 06/24/22 06/24/22 Range/Units 07:10 07:10 WBC 7.92 (4.8-10.8) K/ul RBC 4.46 L (4.63-6.08) M/uL Hgb 13.3 L (14.0-18.0) g/dl Hct 37.9 L (40.1-51.0) % MCV 85.0 (80.0-100.0) fL MCH 29.8 (25.0-34.0) pg MCHC 35.1 (32.0-36.0) g/dL RDW Std Deviation 48.1 H (36.4-46.3) fL RDW Coeff of Kiana 15.4 H (11.5-14.5) % Plt Count 302 (130-400) K/uL MPV 10.2 (9.4-12.4) fL Immature Gran % (Auto) 0.4 % Neut % (Auto) 64.7 % Lymph % (Auto) 19.3 % Harlan % (Auto) 13.0 % Eos % (Auto) 1.8 % Baso % (Auto) 0.8 % Neut # (Auto) 5.13 (1.4-6.5) K/uL Lymph # (Auto) 1.53 (1.2-3.4) K/uL Harlan # (Auto) 1.03 H (0.24-0.82) K/uL Eos # (Auto) 0.14 (0-0.50) K/uL Baso # (Auto) 0.06 (0-0.2) K/uL Immature Gran # (Auto) 0.03 H (0.00-0.02) K/uL Sodium 132 L (136-145) mmol/L Potassium 4.2 (3.5-5.1) mmol/L Chloride 101 (98-107) mmol/L Carbon Dioxide 25 (21-32) mmol/L Anion Gap 6 (3-11) BUN 12 (6-23) mg/dl Creatinine 0.62 (0.6-1.4) mg/dl Est Cr Clr Drug Dosing 132.5 ml/min Est GFR ( Amer) 125.8 ml/min Est GFR (Non-Af Amer) 108.6 ml/min BUN/Creatinine Ratio 19.4 (10-20) Glucose 84 (70-99(Fasting)) mg/dl Calcium 9.7 (8.5-10.1) mg/dl Resident Activity Tracking Resident Involvement: Resident Care Provided Care Provided: Adult Hospital Medicine (1) Chest pain Chest pain type: chest pain on breathing Qualified Code(s): R07.1 - Chest pain on breathing
[2022-06-24] MEDS: ALBUT/IPRATROP 3MG/0.5MG NEB 3 ML VIAL INH PRN (19:32)
[2022-06-24] MEDS: ENOXAPARIN INJ 40 MG/0.4 ML SYR SQ SCH (21:16)
[2022-06-25] MEDS: IBUPROFEN 600 MG TAB PO PRN ×3 (05:32→18:12)
[2022-06-25] MEDS: ALBUT/IPRATROP 3MG/0.5MG NEB 3 ML VIAL INH PRN ×2 (05:39→18:19)
--- NOTE | 2022-06-25 07:01 | Hospitalist Progress Note ---
Date of Service June 25, 2022 Assessment & Plan (1) Metastatic non-small cell lung cancer: Plan: 57 yo male with PMHx metastatic non-small cell lung cancer, COPD, PE who presented with chest pain, found to have worsening mediastinal mass. Metastatic non-small cell lung cancer - Past history of metastatic NSC lung cancer, diagnosed 2017 treated with chemotherapy, mets to brain treated with gamma knife radiation. - +D-dimer, CTA w/o evidence of PE however [id number] mediastinal mass with mets to liver. - Discussed w/ Dr. Garcia in oncology, pt will need liver biopsy for pathology diagnosis. - Discussed w/ Radiology, they can biopsy outpatient next week or later. Pt will need to be scheduled. - MRI brain (06/23): No progressive mets. No acute abnormalities. No change from prior imaging. Chest Pain, improving - EKG without ischemic changes and negative troponin - Most likely secondary to pleuritic pain from mediastinal mass. - Pain Regimen: Ibuprofen prn, IV morphine 2mg q4 prn for severe pain COPD Dyspnea on exertion - On inhalers prior, but has not used in over a year - restarted home spiriva, symbicort scheduled - duoneb prn History of VTE - Was on Eliquis before he stopped his medications in 2020 for history of PE - Consider anti-coagulation when discharged with metastatic disease Tobacco Abuse - 40 pack year smoking history - currently smokes 1 pack day - declined nicotine patch VTE Prophylaxis: Lovenox 40 mg F/E/N/GI: Regular Dispo: med surg Code Status: DNR/DNI; Case management working with Arian from [employer] to get patient more immediate housing. May take until Sunday. (2) Chest pain: (3) COPD (chronic obstructive pulmonary disease): (4) Tobacco abuse: (5) Coronary artery disease: Admission and Anticipated Discharge Date Admission Date: June 22, 2022 Supervising Physician Co-Signing Physician Notes Resident Physician Supervision Note: I independently interviewed and examined the patient and verified the martin history and physical, reviewed labs and image studies and agree with resident findings and care plan. Subjective Patient seen at the bedside this morning. Chest/lung pains improved from yesterday especially with pain medications. Says pain is better when sleeping on belly. Inhalers help with breathing. Denies sob at rest, headache, N/V, abd pain. Review of Systems Review of Systems: All systems reviewed & are unremarkable except as noted in HPI & below Physical Exam Physical Exam: Constitutional: WD/WN, in no acute distress, pleasant. Vitals as above. HEENT: No scleral injection. Moist mucous membranes. Neck: Trachea midline. Lungs: Diminished bibasilar sounds L>R otherwise CTAB, no increased work of breathing or accessory muscle use. Cardiac: RRR. No murmurs. Abdomen: +BS. Soft, nontender, and nondistended.No guarding or rebound tenderness. No hepatosplenomegaly. Skin: No rashes, warm, dry. Psych: AOx3 Results & Data Results & Data ([facility]) Vital Signs (Past 12 Hours) Vital Signs Temp Pulse Resp BP Pulse Ox O2 Del Method 06/25/22 05:39 98 H 18 96 Room Air 06/24/22 22:20 36.8 C 110 H 18 117/75 95 Room Air 06/24/22 19:10 Room Air 06/24/22 19:32 106 H 24 95 Room Air Resident Activity Tracking Resident Involvement: Resident Care Provided Care Provided: Adult Hospital Medicine (1) Chest pain Chest pain type: chest pain on breathing Qualified Code(s): R07.1 - Chest pain on breathing
[2022-06-25] MEDS: PANTOprazole 40 MG TAB PO SCH (08:04)
[2022-06-25] MEDS: HEPARIN 100 UNIT/ML 5ML FLUSH FLUSH PRN (08:13)
[2022-06-25] MEDS: UMECLIDINIUM BROMIDE 62.5MCG/BLISTER 7 PUFFS/INHALER INH SCH (13:27)
[2022-06-25] MEDS: FLUTICASONE/VILANTEROL 100/25MCG 14 PUFFS/INHALER INH SCH (13:28)
[2022-06-25] MEDS: ENOXAPARIN INJ 40 MG/0.4 ML SYR SQ SCH (21:10)
[2022-06-26] MEDS: IBUPROFEN 600 MG TAB PO PRN ×3 (03:01→15:10)
[2022-06-26] MEDS: ALBUT/IPRATROP 3MG/0.5MG NEB 3 ML VIAL INH PRN ×2 (03:27→10:32)
[2022-06-26] MEDS: PANTOprazole 40 MG TAB PO SCH (09:10)
[2022-06-26] MEDS: UMECLIDINIUM BROMIDE 62.5MCG/BLISTER 7 PUFFS/INHALER INH SCH (09:11)
[2022-06-26] MEDS: FLUTICASONE/VILANTEROL 100/25MCG 14 PUFFS/INHALER INH SCH (09:11)
--- NOTE | 2022-06-26 19:21 | Billing Data ---
Date of Service June 26, 2022 Coding Level of Care Code D/C DAY MANAGEMENT <30 MINS
--- NOTE | 2022-06-26 19:49 | Discharge Summary ---
Date of Service June 26, 2022 Admission HPI Per Admitting Provider 57 year old male with a past medical history of metastatic non-small cell lung cancer, COPD, PE presents with left sided chest pain. He was diagnosed with stage IV lung cancer with mets to the brain in 2016. He was treated with Keytruda, treatment was complicated by lapses in insurance. He also underwent GammaKnife to the brain in 10/2017. He was last seen by oncology 06/[address] scan was stable from prior scans, he was to follow up in 3 months but never did. He was been increased dyspnea for the past 3 months. He has also been having chest pain that has gotten worse over the past 3 weeks. It's left sided and radiates to scapula and ribs. Also has a chronic cough that is productive of yellow sputum. He is not currently taking any medications. He is currently homeless and has been living out of his truck. ED course was significant for EKG normal sinus rhythm without ischemic changes. Lung mass in left lung field seen on CXR without pneumothorax. + D gricelda, CTA without evidence of PE, showed large invasive bronchogenic appearing tumor. Troponin= 3.8. Admission Exam Per Admitting Provider Constitutional: well-appearing, no acute distress HEENT: NCAT, no conjunctival injection CV: regular rhythm, no murmur appreciated, extremities well-perfused, no LE edema; has portal present right side of chest Resp: CTABL, no wheezes/rales/rhonchi appreciated, no increased work of breathing GI: soft, nondistended, nontender, BS normoactive MSK: no gross deformities appreciated Skin: warm, dry, no rash appreciated Neuro: alert, oriented, no focal neurologic deficit appreciated Principal Diagnosis Metastatic non-small cell lung cancer Discharge Exam General: Well-appearing, alert, interactive, and in no acute distress. HEENT: Normocephalic, atraumatic. EOM intact. Good conjugate gaze. Nares patent. Moist mucosal membranes. Neck: Supple. No lymphadenopathy. Normal ROM. CV: Regular rate and rhythm. Normal S1 and S2. No murmurs gallops or rubs. Respiratory: Normal respiratory effort. Bibasilar crackles. No rhonchi, or wheezes. Abdomen: Soft, nondistended abdomen. No bruits heard on auscultation. No tenderness to deep palpation. No guarding or rebound. Extremities: Capillary refill <2 sec. 2+ dp equal bilaterally. No pedal edema. Neuro: Alert and oriented x3. Skin: Clean, dry, and intact. No rashes, bruises, or erythema. Discharge Data Allergies Allergy/AdvReac Type Severity Reaction Status Date / Time No Known Allergies Allergy Unknown Verified 05/12/20 08:50 Consultations 06/22/22 17:28 ED Decision to Admit Stat 06/22/22 23:09 Consult Oncology Routine Ordered Studies 06/22/22 16:06 CT angio chest PE protocol Stat 06/23/22 15:46 MRI Brain [MR brain wo/w con] Routine Hospital Course (1) Metastatic non-small cell lung cancer: 57 yo male with PMHx metastatic non-small cell lung cancer, COPD, PE who presented with chest pain, found to have worsening mediastinal mass. Metastatic non-small cell lung cancer - Past history of metastatic NSC lung cancer, diagnosed 2017 treated with chemotherapy, mets to brain treated with gamma knife radiation. - +D-dimer, CTA w/o evidence of PE however [id number] mediastinal mass with mets to liver. - Discussed w/ Dr. Garcia in oncology, pt will need liver biopsy for pathology diagnosis. - Discussed w/ Radiology, they can biopsy outpatient next week or later. Pt will need to be scheduled. - MRI brain (06/23): No progressive mets. No acute abnormalities. No change from prior imaging. * Outpatient PCP follow-up scheduled 06/28/2022: Decision to start Eliquis for DVT prophylaxis to be made by PCP. * Unable to schedule liver biopsy with radiology. Will update patient's primary care physician once appointment has been made. * Outpatient follow-up with oncology scheduled for 07/18/2022. Chest Pain, improving - EKG without ischemic changes and negative troponin - Most likely secondary to pleuritic pain from mediastinal mass. - Pain Regimen: Ibuprofen prn, IV morphine 2mg q4 prn for severe pain * Recommended switching ibuprofen to Tylenol for pain control as needed upon discharge. COPD Dyspnea on exertion - On inhalers prior, but has not used in over a year - Patient had not been on COPD regimen for some time. Restarted on daily Symbicort, Spiriva, with DuoNeb as needed for cough and wheezing. * Discharged home on daily Symbicort and Spiriva, as well as Combivent inhaler, prescriptions for which were all sent to the patient's pharmacy. History of VTE - Was on Eliquis before he stopped his medications in 2020 for history of PE * Consider anti-coagulation when discharged with metastatic disease Tobacco Abuse - 40 pack year smoking history - currently smokes 1 pack day - declined nicotine patch (2) Chest pain: (3) COPD (chronic obstructive pulmonary disease): (4) Tobacco abuse: (5) Coronary artery disease: Total Time Total Time Spent Total Time Spent (In Minutes): <30 Discharge Plan Discharge Items Patient Disposition: Home - Self-Care Reason For Visit: LUNG MASS Discharge Diagnosis: Lung mass Activity: Per Instructions section Non-emergency contact: Primary Care Provider Call non-emergency contact if: you have any medication questions, your symptoms worsen and your pain is not controlled Follow-up/Referrals: Rahat Caballero [Primary Care Provider] - 06/28/22 1:30 pm Lynn Seymour MD [Physician] - 07/18/22 11:20 am Diet: Regular Ambulatory Orders: US biopsy liver (Routine) Timeframe: 1 Week Location: Determined by Patient Ordered By: Rene Kirkland Attending Provider Instructions: Mr Davila, You came to the hospital with a chief complaint of left-sided chest pain. You were evaluated with labs and imaging found to have a lung mass in your left chest strongly indicative of tumor recurrence. There was also evidence of met astasis or spread of the primary tumor, to the liver. You were seen by your oncologist, who recommended biopsy of the liver metastasis. We are in the process of scheduling an appointment for you with radiology in order to have the tumor in the liver biopsied. You will hear from either the radiologist public health professor, or your primary care physician, who will be notified by us when an appointment has been scheduled. We also continued with your long-term COPD treatments while you are admitted. We are sending you home with a new prescription for your inhalers (Spiriva, Symbicort, DuoNeb). * You should use your Spiriva and Symbicort, 1 puff each daily. * You may use your DuoNeb nebulized inhaler 1 puff every 8 hours only as needed for shortness of breath or wheezing not controlled by your daily inhalers. We scheduled an appointment for you with the oncologist, Dr. Seymour, on July 18 at 11:20 AM. We have also scheduled an appointment for you with your primary care doctor, Dr. aCballero, on June 28 at 1:30 PM. Please take your medications as instructed. Please do not miss any of your s cheduled appointments. If you have any questions about anything regarding your care or follow-up care, please do not hesitate to reach out to us at [phone]. It was a pleasure to take care of you here at [facility]. We wish you the best of luck with your continued care. Pending Studies at Discharge: No Stand-Alone Forms: My [facility], Smoking Cessation Medications and DC Order Prescriptions: New Combivent Respimat 20-100 mcg/actuation mist 1 puff inhalation Q6H Qty: 4 0RF Continued budesonide-formoterol [Symbicort] 160-4.5 mcg/actuation HFA aerosol inhaler inhalation 1XD 0RF Label Comments: has not had for a long time , MD aware tiotropium bromide [Spiriva Respimat] 1.25 mcg/actuation mist inhalation 1XD 0RF Label Comments: has not had for a long time , MD aware omeprazole 20 mg Capsule,Delayed Release(Dr/Ec) 20 mg PO QAM Label Comments: buys over the counter Discontinued ipratropium-albuterol 0.5 mg-3 mg(2.5 mg base)/3 mL solution for nebulization 3 ml INH Q8H PRN (Reason: shortness of breath or wheezing) Qty: 180 2RF Label Comments: has not had for a long time , MD aware No Action (DME) nebulizers misc See Rx Instructions .ROUTE .MEDSUPPLY Qty: 1 0RF Label Comments: pt lives in his car Rx Instructions: Q 4HR WITH TUBING & SUPPLIES - COPD J44.9 (DME) AeroEclipse II Nebulizer Misc See Rx Instructions .ROUTE .MEDSUPPLY Qty: 1 0RF Label Comments: pt lives in his car Rx Instructions: As directed (DME) nebulizer accessories Kit See Rx Instructions .ROUTE .MEDSUPPLY Qty: 1 0RF Label Comments: pt lives in his car Rx Instructions: TUBING & SUPPLIES : (DME) nebulizer accessories Kit See Rx Instructions .ROUTE .MEDSUPPLY Qty: 1 0RF Label Comments: pt lives in his car Rx Instructions: Nebulizer kits DX COPD J44.9 Discharge Orders: Discharge Order (Routine); Ordered 06/26/22 Ordered By: Rene Kwok Admission Data Admit Date/Time: 06/22/22 19:30 Attending Provider: Rasheed Costa Admit Provider: Gayle Faust Primary Care Provider: Rahat Caballero Other Providers: Edilberto Summers ; Lynn Seymour ; Samantha Donovan Other Interventions: Discharge Summary Assessment (RN) Last Done: 06/26/22 17:35 Supervising Physician Co-Signing Physician Notes I personally examined the patient and verified all martin points of history and exam, discussed case, and agree with decision making with Dr Kwok Feeling okay. Would like to go home. Pain under reasonable control. Biopsy being set up for outpatient. PCP appointment set. Answered all questions the best my ability and his satisfaction. Vitals noted, in general he is awake and alert pleasant no distress. HEENT normocephalic atraumatic mucous membranes moist. Breathing unlabored no accessory muscle use good effort. Skin shows no rashes no pallor or icterus. Neuro without focal deficits. Masssuspect recurrence of lung cancer. Outpatient management after biopsies are back. With COPDtriple therapy of inhalers, outpatient follow-up. Safe/stable for home. Prior PEhe relates that it was fairly small and may be of no clear significance, and remembers only being on anticoagulation for about 3 months. Discussed with patient given that he has had clots in the past, and now has return of a risk factor given the metastatic cancerit would definitely be reasonable to consider anticoagulation again. Gave him a coupon for Eliquis, and suggested he discuss further with his PCP at follow-up later this week. otherwise as above Resident Activity Tracking Resident Involvement: Resident Care Provided Care Provided: Adult Hospital Medicine
--- NOTE | 2022-06-29 23:27 | Billing Data ---
Date of Service June 22, 2022 Coding Level of Care Code INT OBSERVATION CARE 70M LVL 3
== END 2022-06-26 18:02 | disposition home or self-care (01) ==
LOC: ED 14:22 → 3W 19:30 → INTOOBSV 19:30 → SUATTDRO 19:30 → 3W 21:20

== ENCOUNTER 2022-07-18 15:02 | Inpatient (IN) ==
[2022-07-18] MEDS ORDERED: ACETAMINOPHEN 325 MG TAB PO PRN (15:54)
--- NOTE | 2022-07-18 16:01 | History & Physical Report ---
Date of Service July 18, 2022 Assessment & Plan (1) Acute respiratory failure with hypoxia: Plan: Aim O2 sats > 90% Secondary to metastatic small cell lung cancer + pleural effusion +/- post obstructive pneumonia Possible bacteremia/sepsis given increased neutrophilia/procalcitonin although given such an aggressive cancer this may be explained by this alone (2) Metastatic cancer: Plan: Metastatic small cell lung cancer CT chest for PE CT abdo/pelvis with IV contrast uric acid/PO/Mg/K levels trend if starting chemotherapy, will start LR @ 100ml/hr and allopurinol to reduce risk of tumor lysis Previous port accessed and working Consult palliative and oncology (3) Small cell lung cancer: Plan: As above (4) Postobstructive pneumonia: Plan: Sputum culture Biofire PCR Blood culture MRSA nasal swab negative Zosyn + Azithromycin (5) Pleural effusion, left: Plan: Consult pulmonology for possible thoracentesis (6) History of pulmonary embolism: Plan: Noted history of this. Prescribed Eliquis 5mg PO daily? - Unclear what this is treating. (7) COPD (chronic obstructive pulmonary disease): Plan: Paula QID Consult pulm to consider steroids (8) Coronary artery disease: Plan: s/p three coronary artery stents Unclear why he is not on all standard medications for this (9) Heartburn: Plan: Continue pantoprazole 40mg PO daily (10) Metastatic non-small cell lung cancer: Plan: History of this - treated with GammaKnife surgery and mainly Keytruda. Plan VTE Prophylaxis - deferred pending thoracentesis decision Diet - regular, NPO after midnight Disposition - based on this history patient was admitted to med/surg but will be transferred to PCU given cancer is essentially encasing his heart Admission and Anticipated Discharge Date Admission Date: July 18, 2022 History of Present Illness Chief Complaint: Shortness of breath Primary Care Provider: Rahat Davila is a 57 year old male [facility] to newly diagnosed metastatic small cell lung cancer on liver biopsy for induction chemotherapy with post operative pneumonitis. Discussed care with Dr Garcia prior to admission. The patient reports significant slow worsening of his shortness of breath since discharge on June 26. He was hospitalized at [facility] from June 22 - 2021 due to chest pain. A large lung mass with metastatic disease to his liver was diagnosed at that time and he was set up for outpatient liver biopsy which he had on July 03, 2022. He was started on Eliquis 5mg PO daily after this although I am unclear on the reason for the odd dose and why - the patient just reports they were worried about blood clots given his history. Pathology on liver biopsy showed small cell lung cancer and he was referred to the [facility] where he was seen by Dr Garcia today and recommended direct admission. He has a prior diagnosis of non-small cell lung cancer (lung adenocarcinoma) of the right lower lobe diagnosed in 2016 with mets to his brain treated with GammaKnife SRS in Oct 2017, carboplatin/pemetrexed and Keytruda -> switched to Keytruda alone after molecular testing with a lapse in treatment due to insurance issues in 2018. He had an episode of sepsis in August 2019 requiring hospitalization. In November he was diagnosed with tiny nonocclusive pulmonary emboli and was treated with Eliquis for 6 months. Reportedly multiple missed appointments following this until his hospitalization recently in June as outlined above. The patient reports worsening of his chest pain on the left side, severity 6/10, no radiation, back left around his scapula, worse on inspiration. Cough has become much worse and unable to cough up what he feels he needs to. Phlegm he is coughing up is brown. Shortness of breath slowly progressively worse the last three weeks. No fever or chills. No acute sudden deterioration or new symptoms in the last 24 hours. Last took Eliquis yesterday morning. He reports this is his only prescribed medication, although his home meds from the [facility] show him taking metoprolol tartrate 25mg PO daily and he was recently discharged on Symbicort and Spiriva - he reports only have a red emergency inhaler at home. Allergies Allergy/AdvReac Type Severity Reaction Status Date / Time No Known Allergies Allergy Unknown Verified 07/03/22 08:37 Home Medications Medication Instructions Recorded Confirmed Type omeprazole 20 mg capsule,delayed 20 mg PO QAM 10/21/19 07/18/22 History release ipratropium 20 mcg-albuterol 100 1 puff inhalation Q6H #4 grams 06/26/22 07/18/22 Rx mcg/actuation mist for inhalation (Combivent Respimat) apixaban 5 mg tablet (Eliquis) 5 mg PO QAM 07/18/22 07/18/22 History Past Med/Surg History Medical History (Updated 07/19/22 @ 06:30 by Dwight Garcia MD) COPD (chronic obstructive pulmonary disease) Coronary artery disease S/p three stents Heartburn FREQUENT History of chemotherapy History of pneumonia FEW WEEKS AGO, RESOLVED History of pulmonary embolism Metastatic cancer to brain Metastatic non-small cell lung cancer DX 2018 Status post gamma knife treatment 10/16/17 Surgical History H/O arthroscopy of right knee History of bronchoscopy 09/28/17 History of heart artery stent Stents x 3 History of surgery Right ankle as a child History of surgery PORT, RIGHT UPPER CHEST Hx of cardiac catheterization 1ST CATH 2005 (X2 STENTS- LAD and OM), MOST RECENT CATH 2015 - (STENT X1 to RCA) S/P bronchoscopy with biopsy (10/31/19) Navigational Bronchoscopy with Biopsy Dr. Freeman 10-31-19 Family History Mother , 83yo Dementia Father , 67yo Diabetes Myocardial infarction Melanoma Cancer Brother , 57yo Cerebral aneurysm Brother Polio Sister Stroke Sister No problems noted. Sister Cancer Son No problems noted. Grandmother (Paternal) Cancer Social History Smoking Status: Current every day smoker Tobacco Type: Cigarettes Cigarettes Per Day: 20; Second Hand Exposure: No; Do You Dip or Chew Tobacco: No; Tobacco Cessation Education Requested by Patient: No Hx Alcohol Use: Yes Alcohol type: beer Alcohol type Comment: 6 beers/day; Hx Substance Use: No Preferred Language: Estonian Communication Ability: Effective Visual Impairment: No Limitations Hearing Ability: Normal Audio Visual Secretary Required: No Beliefs That Will Affect Care: None marital status: Current Living Situation: Alone Current Living Situation Comment: lives in vehicle current occupational status: retired 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 [place] How many Children do You have: 1 Other Information That Helps Us Care for You: No Feels Safe at Home: Yes caffeine: Yes (7 cups/day) during the past year weight has: remained stable Assistive Devices: Glasses Review of Systems Review of Systems: All systems reviewed & are unremarkable except as noted in Subjective Physical Exam Constitutional: well developed and + acute distress (respiratory); + not well nourished Eyes: PERRL, conjunctivae normal, anicteric sclerae ENMT: external ear and nose normal, oropharynx normal Neck: trachea midline, no thyromegaly Respiratory: + respiratory distress, + labored breathing, + retractions and + uses accessory muscles; + not able to speak in complete sentence and no stridor Auscultation: + diminished lung sounds (left sided), + crackles (coarse b/l) and + rales (anteriorly); no wheezes Cardiovascular: Rate/Rhythm: regular rhythm and + tachycardic Heart Sounds: no murmur Vessels: radial pulses present Extremities: normal capillary refill; no calf tenderness and no pedal edema Gastrointestinal (Abdomen): Inspection/Auscultation: abdomen normal to inspection and normal bowel sounds; abdomen not distended Percussion/Palpation: abdomen soft; abdomen nontender, no guarding and abdomen not rigid Musculoskeletal: no cyanosis or clubbing, extremities motor strength 5/5 Skin: no rashes, warm and dry Neurologic: moves all extremities and awake; not confused Psychiatric: A+Ox3, euthymic affect Results & Data Results & Data ([facility]) Vital Signs (Past 12 Hours) Vital Signs Temp Pulse Resp BP Pulse Ox O2 Del Method 07/18/22 15:34 36.8 C 102 H 22 103/62 94 Room Air Laboratory Results Abnormal lab results 07/18/22 07/18/22 07/18/22 Range/Units 16:11 16:11 16:11 WBC 27.35 H (4.8-10.8) K/ul RBC 4.31 L (4.63-6.08) M/uL Hgb 12.5 L (14.0-18.0) g/dl Hct 35.0 L (40.1-51.0) % RDW Coeff of Kiana 14.9 H (11.5-14.5) % Plt Count 971 H (130-400) K/uL Neut # (Auto) 22.78 H (1.4-6.5) K/uL [place] # (Auto) 2.26 H (0.24-0.82) K/uL Immature Gran # (Auto) 0.76 H (0.00-0.02) K/uL ESR (0-20) mm/hr PT 13.2 H (9.0-12.0) Seconds INR 1.3 H (0.9-1.1) APTT 34.7 H (21.0-31.0) Seconds Sodium 132 L (136-145) mmol/L Chloride 95 L (98-107) mmol/L Anion Gap 15 H (3-11) BUN 44 H (6-23) mg/dl BUN/Creatinine Ratio 34.9 H (10-20) Glucose 100 H (70-99(Fasting)) mg/dl Lactate (0.4-2.0) mmol/L Uric Acid 9.1 H (2.6-7.2) mg/dl Alkaline Phosphatase 214 H (34-104) U/L C-Reactive Protein (0-0.5) mg/dl Albumin 2.8 L (3.4-5.0) gm/dl Globulin 4.2 H (2.5-4.0) gm/dl Albumin/Globulin Ratio 0.7 L (0.9-2) Procalcitonin (0-0.5) ng/ml Entero/Rhino (PCR) (NotDetected) 07/18/22 07/18/22 07/18/22 Range/Units 16:11 16:11 16:16 WBC (4.8-10.8) K/ul RBC (4.63-6.08) M/uL Hgb (14.0-18.0) g/dl Hct (40.1-51.0) % RDW Coeff of Kiana (11.5-14.5) % Plt Count (130-400) K/uL Neut # (Auto) (1.4-6.5) K/uL [place] # (Auto) (0.24-0.82) K/uL Immature Gran # (Auto) (0.00-0.02) K/uL ESR > 130 H (0-20) mm/hr PT (9.0-12.0) Seconds INR (0.9-1.1) APTT (21.0-31.0) Seconds Sodium (136-145) mmol/L Chloride (98-107) mmol/L Anion Gap (3-11) BUN (6-23) mg/dl BUN/Creatinine Ratio (10-20) Glucose (70-99(Fasting)) mg/dl Lactate (0.4-2.0) mmol/L Uric Acid (2.6-7.2) mg/dl Alkaline Phosphatase (34-104) U/L C-Reactive Protein 42.94 H (0-0.5) mg/dl Albumin (3.4-5.0) gm/dl Globulin (2.5-4.0) gm/dl Albumin/Globulin Ratio (0.9-2) Procalcitonin 72.97 H (0-0.5) ng/ml Entero/Rhino (PCR) (NotDetected) 07/18/22 07/18/22 Range/Units 17:25 19:16 WBC (4.8-10.8) K/ul RBC (4.63-6.08) M/uL Hgb (14.0-18.0) g/dl Hct (40.1-51.0) % RDW Coeff of Kiana (11.5-14.5) % Plt Count (130-400) K/uL Neut # (Auto) (1.4-6.5) K/uL [place] # (Auto) (0.24-0.82) K/uL Immature Gran # (Auto) (0.00-0.02) K/uL ESR (0-20) mm/hr PT (9.0-12.0) Seconds INR (0.9-1.1) APTT (21.0-31.0) Seconds Sodium (136-145) mmol/L Chloride (98-107) mmol/L Anion Gap (3-11) BUN (6-23) mg/dl BUN/Creatinine Ratio (10-20) Glucose (70-99(Fasting)) mg/dl Lactate 2.2 H* (0.4-2.0) mmol/L Uric Acid (2.6-7.2) mg/dl Alkaline Phosphatase (34-104) U/L C-Reactive Protein (0-0.5) mg/dl Albumin (3.4-5.0) gm/dl Globulin (2.5-4.0) gm/dl Albumin/Globulin Ratio (0.9-2) Procalcitonin (0-0.5) ng/ml Entero/Rhino (PCR) DETECTED A* (NotDetected) Diagnostic Findings SINGLE VIEW CHEST CLINICAL HISTORY: Hypoxia FINDINGS: 2 AP, portable, upright chest radiographs compare to chest x-ray and chest CT dated 06/22/2022. A right internal jugular central venous infusion port is unchanged in position. The cardiomediastinal silhouette is unremarkable. Emphysema is similar to previous. There is a large at least partially loculated left pleural effusion with atelectasis of the left lower lung. The left upper lobe remains aerated. The patient's known large left upper lobe mass lesion is partially obscured. The right lung appears clear. No pneumothorax is seen. The skeletal structures appear osteopenic. The bony thorax is grossly intact. IMPRESSION: 1. There is a large and at least partially loculated left pleural effusion with atelectasis of the left lower lung. This has significantly increased in size from previous. The left upper lobe remains aerated. 2. The patient's known left upper lobe mass lesion is partially obscured. 3. The right lung appears clear. ECG Indication: chest pain and SOB/dyspnea Rate (beats per minute): 105 Findings: + other (QRS axis shifted right and low voltage) Comparison ECG Date: from (June 22, 2022) Change: the following changes noted (QRS shifted right, lateral infarct now present, inferior infarct now present) Code Status & VTE Plan Code Status DNR/DNI VTE Prophylaxis Plan VTE Prophylaxis will be ordered: No Critical Care Time Prolonged Care Time Prolonged Care Time: Yes Total Prolonged Care Time: 45 PG Care Time/CCT Total # of Minutes Spent Total Time Spent with Patient: Total time spent is greater than 50% in coordination of care (as documented) at patient's floor/unit and/or counseling patient: Prolonged Care Time Prolonged Care Time: Yes Total Prolonged Care Time: 45 Coding Level of Care Code 25023 Initial Inpt Care Lvl 3 Diagnoses Acute respiratory failure with hypoxia J96.01 Metastatic cancer C79.9 Small cell lung cancer C34.90 Postobstructive pneumonia J18.9 Pleural effusion, left J90 History of pulmonary embolism Z86.711 COPD (chronic obstructive pulmonary disease) J44.9 Coronary artery disease I25.10 Heartburn R12 Metastatic non-small cell lung cancer C34.90 Additional Codes Prolonged Care Time - Prolonged Care Time: Yes ([id number])
[2022-07-18 16:27] LABS: Hemoglobin 12.5 g/dl (14.0-18.0); Mean Corpuscular Hgb Conc 35.7 g/dL (32.0-36.0); Mean Corpuscular Volume 81.2 fL (80.0-100.0); Mean Platelet Volume 10.1 fL (9.4-12.4); Platelet Count 971 K/uL (130-400); RDW Coefficient of Variation 14.9 % (11.5-14.5); RDW Standard Deviation 43.4 fL (36.4-46.3); Red Blood Count 4.31 M/uL (4.63-6.08); White Blood Count 27.35 K/ul (4.8-10.8)
[2022-07-18 16:44] LABS: INR 1.3 (0.9-1.1); Partial Thromboplastin Ratio 1.3; Partial Thromboplastin Time 34.7 Seconds (21.0-31.0); Prothrombin Time 13.2 Seconds (9.0-12.0)
[2022-07-18 16:48] LABS: Basophils # (auto) 0.07 K/uL (0-0.2); Basophils % (auto) 0.3 %; Eosinophils # (auto) 0.01 K/uL (0-0.50); Immature Granulocytes # (auto) 0.76 K/uL (0.00-0.02); Immature Granulocytes % (auto) 2.8 %; Lymphocytes # (auto) 1.47 K/uL (1.2-3.4); Lymphocytes % (auto) 5.4 %; Monocytes # (auto) 2.26 K/uL (0.24-0.82); Monocytes % (auto) 8.3 %; Neutrophils # (auto) 22.78 K/uL (1.4-6.5); Neutrophils % (auto) 83.2 %; Target Cells 1+
[2022-07-18] MEDS ORDERED: ALBUT/IPRATROP 3MG/0.5MG NEB 3 ML VIAL NEB STA (16:54)
[2022-07-18 17:05] LABS: Albumin Globulin Ratio 0.7 (0.9-2); Albumin Level 2.8 gm/dl (3.4-5.0); BUN Creatinine Ratio 34.9 (10-20); Bilirubin,Total 0.7 mg/dl (0.2-1.0); Calcium 10.1 mg/dl (8.5-10.1); Creatinine Clr Calc Pharmacy 65.2 ml/min; Est GFR (African American) 71.9 ml/min; Globulin 4.2 gm/dl (2.5-4.0); Magnesium 2.1 mg/dl (1.7-2.4); Phosphorus 3.8 mg/dl (2.5-4.9); Potassium 3.9 mmol/L (3.5-5.1); Uric Acid 9.1 mg/dl (2.6-7.2)
--- NOTE | 2022-07-18 17:11 | XRay Report ---
SINGLE VIEW CHEST CLINICAL HISTORY: Hypoxia FINDINGS: 2 AP, portable, upright chest radiographs compare to chest x-ray and chest CT dated 06/22/20. A right internal jugular central venous infusion port is unchanged in position. The cardiomediast inal silhouette is unremarkable. Emphysema is similar to previous. There is a large at least partiall y loculated left pleural effusion with atelectasis of the left lower lung. The left upper lobe remain s aerated. The patient's known large left upper lobe mass lesion is partially obscured. The right madina g appears clear. No pneumothorax is seen. The skeletal structures appear osteopenic. The bony thorax is grossly intact. IMPRESSION: 1. There is a large and at least partially loculated left pleural effusion with atelectasis of the le ft lower lung. This has significantly increased in size from previous. The left upper lobe remains ae rated. 2. The patient's known left upper lobe mass lesion is partially obscured. 3. The right lung appears clear. ACT 112: Negative or not required by law. Electronically signed by: Bernard Stanton M.D. 07/18/2022 5:09 PM
[2022-07-18] MEDS ORDERED: MoRPHine SULFATE 4 MG/ML 1 ML CARP\\VIAL IV PRN (17:48)
[2022-07-18] MEDS ORDERED: MoRPHine SULFATE 2 MG/ML CARP IV PRN (17:48)
[2022-07-18] MEDS ORDERED: oxyCODONE HCL IR 5 MG TAB (IMMEDIATE RELEASE) PO PRN (17:49)
[2022-07-18] MEDS ORDERED: OPTIRAY 320 500ml IV ONE (18:03)
--- NOTE | 2022-07-18 18:26 | CT Scan Report ---
CHEST CTA for PULMONARY ARTERIES CT DOSE: HISTORY: Shortness of breath. TECHNIQUE: Multiaxial CT images of the chest were performed following the intravenous administration of contrast to evaluate the pulmonary arteries. Maximal intensity projection images were also obtaine d. A dose lowering technique was utilized adhering to the principles of ALARA. COMPARISON STUDY: Chest CTA 06/22/2022. FINDINGS: Increase in size in the large infiltrative necrotic mass involving the mediastinum, left hi lum, and left upper lobe. The exact dimensions are difficult to identify on this study due to the inf iltrative appearance of the lesion. There is progressive moderate mass effect and rightward shift of the trachea which demonstrates up to 50% narrowing. There is also moderate narrowing of the left main stem bronchus which demonstrate up to 50% narrowing. There appears to be tumor invading into the left mainstem bronchus which is also new from the prior study. This mass obstructs/invade into the majori ty of the left upper lobe bronchi with dense consolidation now seen throughout the left upper lobe. S ignificant increase in size within the partially loculated moderate to large left pleural effusion. S cattered left-sided pleural metastases are again noted and have also increased in size. Interval prog ression of the multiple enlarged anterior mediastinal lymph nodes/masses consistent with metastatic d isease. There is now mild rightward mediastinal shift due to the large left-sided mass and pleural ef fusion. Moderate to large hiatus hernia again noted. No right pleural effusion or pericardial effusio n. No evidence for an aortic dissection. Multiple attenuated left-sided pulmonary arteries due to the infiltrative mass. However, no definite filling defects within the pulmonary arteries to suggest a p ulmonary embolus. No suspicious lytic or blastic osseous lesions. Abdominal structures are better fernando reciated on the same day abdomen and pelvis CT. Emphysema. The left-sided mass also involves the ante rior aspect of the left lower lobe. A right jugular Port-A-Cath terminates in the distal SVC. IMPRESSION: 1. Significant increase in size in the large infiltrative necrotic mass involving the mediastinum, le ft hilum, left lung, and anterior aspect of the left lower lobe. 2. The left upper lobe now demonstrates diffuse consolidation likely due to postobstructive changes a nd infiltration of the mass. 3. Increase in size in the partially loculated moderate to large left pleural effusion. 4. Progression of the metastatic disease within the mediastinum and left pleura. 5. Interval development of mild right mediastinal shift with moderate narrowing of the trachea and le ft mainstem bronchus as described above.. 6. Attenuated left-sided pulmonary arteries due to the large mass. However, no definite filling defec ts within the pulmonary arteries to suggest a pulmonary embolus. 7. Please refer to the same day abdomen and pelvis CT for further evaluation of the abdominal structu res. 8. Additional findings as described above. ACT 112: Negative or not required by law. Electronically signed by: Rodrigue Boyd M.D. 07/18/2022 6:24 PM
[2022-07-18] MEDS ORDERED: AZITHROMYCIN 500 MG in DEXTROSE 5% 250 ML IV STA (18:27)
[2022-07-18] MEDS: PANTOprazole 40 MG TAB PO SCH (18:30)
--- NOTE | 2022-07-18 18:32 | CT Scan Report ---
ABDOMEN AND PELVIS CT WITH IV CONTRAST CT DOSE: 872.84 mGy.cm HISTORY: staging small cell lung cancer TECHNIQUE: Multiaxial CT images of the abdomen and pelvis were performed following the use of intrave nous contrast. A dose lowering technique was utilized adhering to the principles of ALARA. COMPARISON STUDY: Abdomen and pelvis CT 04/25/2021. FINDINGS: No pneumoperitoneum. No pneumatosis. Interval increase in size in the multiple scattered he patic masses. The adrenal glands, gallbladder, and kidneys unremarkable. No retroperitoneal lymphaden opathy. There is a moderate hiatus hernia again noted. There is a 2.3 cm partially necrotic lesion wi thin the tail the pancreas which is new from the prior study. This is consistent with metastatic dise ase. No pelvic lymphadenopathy. The bladder is unremarkable. Colonic diverticulosis. No evidence for acute diverticulitis. No bowel wall thickening or obstruction. Normal appendix. Calcified plaque with in the normal caliber abdominal aorta. Please refer to same day chest CT for further evaluation. A le ft pleural effusion has increased in size. Small hypodense focus within the medial spleen on image 91 measures 2.1 cm. This is new from the prior study and could represent a splenic infarct or a metasta tic focus. IMPRESSION: 1. Interval increase in size in the multiple hepatic metastases. 2. There is a new 2.3 cm partially necrotic lesion within the pancreatic tail likely representing met astatic disease. 3. There is a 2.1 cm hypodense focus within the medial aspect of the spleen. This could represent a s plenic infarct or a metastatic focus. 4. Please refer to the same day chest CT for further evaluation of the metastatic disease and left pl eural effusion. ACT 112: Negative or not required by law. Electronically signed by: Rodrigue Boyd M.D. 07/18/2022 6:30 PM
[2022-07-18] MEDS: oxyCODONE HCL IR 5 MG TAB (IMMEDIATE RELEASE) PO PRN ×2 (19:43→23:42)
[2022-07-18 20:18] LABS: Adenovirus PCR Not Detected (NotDetected); Bordetella parapertussis PCR Not Detected (NotDetected); Bordetella pertussis PCR Not Detected (NotDetected); Chlamydia pneumoniae PCR Not Detected (NotDetected); Coronavirus 229E PCR Not Detected (NotDetected); Coronavirus CoV-2 (COVID19)PCR Not Detected (NotDetected); Coronavirus HKU1 PCR Not Detected (NotDetected); Coronavirus NL63 PCR Not Detected (NotDetected); Coronavirus OC43PCR Not Detected (NotDetected); Human Metapneumovirus PCR Not Detected (NotDetected); Influenza A PCR Not Detected (NotDetected); Influenza B PCR Not Detected (NotDetected); Mycoplasma pneumoniae PCR Not Detected (NotDetected); Parainfluenza Virus 1 PCR Not Detected (NotDetected); Parainfluenza Virus 2 PCR Not Detected (NotDetected); Parainfluenza Virus 3 PCR Not Detected (NotDetected); Parainfluenza Virus 4 PCR Not Detected (NotDetected); Respiratory Syncytial VirusPCR Not Detected (NotDetected)
[2022-07-18 20:23] LABS: Rhinovirus/Enterovirus PCR DETECTED (NotDetected)
[2022-07-18] MEDS: ALBUT/IPRATROP 3MG/0.5MG NEB 3 ML VIAL NEB SCH (20:31)
[2022-07-18] MEDS: allopurinoL 300 MG TAB PO SCH (20:43)
[2022-07-18] MEDS: LACTATED RINGER'S 1,000 ML IV SCH (21:41)
[2022-07-18] MEDS: PIPERACILLIN/TAZOBACTAM 4.5 GM in DEXTROSE 5% 100 ML IV SCH (22:35)
[2022-07-18] MEDS: guaiFENesin 600 MG TABCR PO SCH (22:36)
[2022-07-18] MEDS ORDERED: Nursing to Pharmacy Communication SCH (23:00)
[2022-07-19] MEDS: LACTATED RINGER'S 1,000 ML IV SCH (05:37)
[2022-07-19] MEDS: PIPERACILLIN/TAZOBACTAM 4.5 GM in DEXTROSE 5% 100 ML IV SCH ×3 (05:37→22:03)
[2022-07-19 06:10] LABS: Hematocrit (blood only) 31.2 % (40.1-51.0); Hemoglobin 11.2 g/dl (14.0-18.0); Mean Corpuscular Hgb Conc 35.9 g/dL (32.0-36.0); Mean Corpuscular Volume 80.8 fL (80.0-100.0); Platelet Count 873 K/uL (130-400); RDW Coefficient of Variation 14.8 % (11.5-14.5); RDW Standard Deviation 42.8 fL (36.4-46.3); Red Blood Count 3.86 M/uL (4.63-6.08); White Blood Count 23.26 K/ul (4.8-10.8)
--- NOTE | 2022-07-19 06:23 | Oncology Consultation ---
Date of Consultation July 19, 2022 Assessment & Plan (1) Small cell lung cancer: Previously treated non-small cell lung cancer has apparently been stable but he now presents with contralateral metachronous primary small cell lung cancer 11.7 cm in size with encasement of the adjacent bronchi pulmonary arteries and veins, what looks like extensive lymphatic and left-sided pleural metastatic disease, mediastinal involvement, and innumerable hepatic metastases. As below this is potentially complicated by postobstructive pneumonia but at least thus far there is no identifiable [employer] involvement. Performance status is poor but because of the high responsiveness of small cell lung cancer chemotherapy, that would still be a consideration. While we should certainly spend some time for acute stabilization of his respiratory status and pain, this is a very fast-paced process and if he is to have any chance for stabilization and extended survival, earlier chemotherapy will be a critical part of that even with the risks of short-term cytopenias that may exacerbate his infection and bleeding risk. Prognosis is guarded even so. He does seem to be aware of this and has designated provisionally to me verbally that he does not want mechanical ventilation or cardiac resuscitation in the event of a full arrest. However he is at least thus far expressing a desire for aggressive intervention at the medical/medication level. Would anticipate an initial chemotherapy program incorporating etoposide and carboplatinum over a 3-day interval. We will reassess with the hospitalist team and anticipated pulmonary and palliative care consultants but may be able to start as soon as or Sunday of this week. Uric acid is already elevated and we will need to watch for tumor lysis syndrome as we proceed, he is to start on allopurinol now and would need potential risk. Case if uric acid exceeds le vels of 11-12 Present on Admission?: Yes (2) Metastatic cancer to brain: Previous metastatic involvement with his 2017 diagnosis of non-small cell lung cancer with stable MRI of the brain for now. He is at risk for subsequent involvement of the [employer] and if we can stabilize his systemic disease we will have to review with radiation oncology whether a close monitoring versus preemptive WBI approach is to be considered (3) DVT prophylaxis: History of pulmonary embolism but with anticipated chemotherapy and potential platelet lauren is, it may be sufficient to simply aggressively prophylax at this time with a very low threshold for reevaluation if there is any sudden respiratory change or signs of DVT with respect to the need for full dose therapy (4) Bronchopneumonia: Element of postobstructive pneumonia and as well apparent indication of an enterovirus/rhinovirus infection. Would certainly seek pulmonary input for optimization of management of his COPD and their thoughts on the role for antibiotics at this time but the postobstructive process would not likely resolve unless/until we can reestablish bronchial patency. Because of the rapid response that we usually see of small cell lung cancer chemotherapy this will be most optimally achieved with that, will likely need to proceed in the relatively near future with chemotherapy even if he has not completely stabilized his infectious process both to specifically seek that opening of his bronchi but also more generally to stabilize what is a very aggressive malignant process Present on Admission?: Yes (5) Chest pain: Present on Admission?: Yes (6) Pain: Severe pain focused in the left flank/left infrascapular area is almost certainly related to his pulmonary mass and pleural involvement. Would be aggressive with particular potential utility to morphine for both pain management and stabilization of his respiratory discomfort. Palliative care may be an important component of judging the optimal approach between as needed dosing and potential long-acting agents Present on Admission?: Yes Plan Note also his hyperleukocytosis and marked thrombocytosis with severe elevation of inflammatory markers. This is probably multifactorial and could be related in part to infection but also the cancer itself is undoubtedly stimulating a dramatic inflammatory risk As above, there will be a certain urgency to proceed with chemotherapy if we are to offer him any chance for stabilization. Would first work with pulmonary and palliative care consultants to make sure that we are optimally managing immediate symptoms. I provisionally discussed chemotherapy with him and he is offered oral consent to start but we will reevaluate after his palliative care consultation as an alternative path would be a pure palliative care transitioning to hospice approach in face of what will be difficult circumstances and an uncertain degree and durability of response. He does indicate provisionally to me verbally that he does not want mechanical ventilation or cardiac resuscitation and I think that would be an appropriate limiting parameter to set in face of he has guarded prognosis. However, at least provisionally he does want to proceed with aggressive medical therapy otherwise History of Present Illness Attending Physician: Scar Gibbs MD History of Present Illness Consultation material was extracted from outpatient visit from 07/18/2022. A copy that has been forwarded to medical records for scanning to the hospital chart Note the patient had been previously diagnosed with a right lung adenocarcinoma in August, PD-L1 positive at 60%. He present with brain metastases which were treated with gamma knife and then systemically with pembrolizumab until the end of the following year, treatment cut short because of logistical difficulties with patient getting back and forth for his treatments. Of potential note he also had an incidental pulmonary embolism in November treated for a time with anticoagulants but again because of his social situation logistical difficulties he discontinued that Admitted here in June with pain and respiratory difficulties at that time noted to have large left lung mass and apparent hepatic metastases though his MRI of the brain showed only old changes from previous treatment of his other malignancy 06/22/2022 CT/CTA chest . . . There is marked narrowing of the left main pulmonary artery and left upper lobar, segmental and subsegmental branches secondary to the large mass as described below. No definite pulmonary emboli are identified. . . . Unchanged 1.2 cm nodule adjacent to the upper left esophagus on image 302. Metastatic nodules within the upper mediastinum include a 1.6 x 2.0 cm nodule adjacent to the proximal left subclavian and common carotid arteries. Several additional nodules also present. 9 mm epicardial nodule noted on image 141. . . .There is a large heterogeneous infiltrative mass involving the mediastinum, left hilum and left upper lobe and lingula crossing the fissure into the superior segment of the left lower lobe which measures approximately 11.7 x 10.8 x 9 cm. The mass encases and narrows the left main pulmonary artery and distal branches as well as the left upper pulmonary vein. There is encasement with narrowing of the left upper lobe bronchi. Several distal bronchi are opacified. There is also rightward deviation with narrowing of the trachea and left mainstem bronchus. There is intralobular septal thickening throughout the left upper lobe and lingula with irregular groundglass and consolidative opacities and nodular densities. Irregular 4.3 cm opacity of the lingula but the fissure on image 161. There are numerous pleural implants noted throughout the left hemithorax with small malignant left pleural effusion. Subpleural nodules measuring up to 1.6 cm on image 218. Moderate pulmonary emphysema. There are no new suspicious nodules noted within the right lung. Diffuse esophageal wall thickening. The mass abuts and displaces the midthoracic esophagus. Moderate sized hiatal hernia. Thickening of the bilateral adrenal glands, unchanged. Innumerable hepatic metastasis, new from prior measuring up to approximately 2.6 cm. Mild gynecomastia. No destructive bone lesions are identified. Chronic mild superior endplate compression deformities of the upper thoracic spine. IMPRESSION: 1. There is a large heterogeneous infiltrative mass involving the mediastinum, left hilum, left upper lobe and lingula crossing into the superior segment of the left lower lobe measuring up to 11.7 cm. Primary bronchogenic carcinoma is the diagnosis of exclusion. The mass encases and narrows the adjacent bronchi, pulmonary arteries and veins. 2. No pulmonary emboli identified. 3. Postobstructive pneumonitis of the left upper lobe and lingula with findings suggestive of lymphangitic carcinomatosis and probable left upper lobe and lingular satellite pulmonary metastasis. 4. Lymphatic metastasis with left-sided pleural metastatic disease and small malignant left pleural effusion. 5. Innumerable hepatic metastasis. 6. Incidental findings as above. 06/23/2022 MR brain 1. There is no evidence of progressive intracranial metastatic disease. No significant change from 08/10/2021. 2. A 7 mm irregular enhancing lesion within a region of left occipital encephalomalacia is unchanged from previous. 3. There is no hemorrhage, mass effect, or evidence of acute ischemia. His pain was somewhat stabilized and he was discharged for further outpatient work-up 07/03/2022 US guided FNA liver lesion Liver, ultrasound-guided aspiration: - Malignant cells present consistent with metastatic small cell carcinoma. . . . Comment: According to clinical notes the patient has a history of metastatic non-small cell carcinoma. The morphologic appearance and immunocytochemistry findings of this aspirate are most consistent with a small cell carcinoma. Patient presented for follow-up to the [facility] 07/18/2022 and at that time was having intractable pain as well as ongoing respiratory difficulties. He was a admitted for immediate symptom management with anticipation of the potential need for urgent chemotherapy Allergies Allergy/AdvReac Type Severity Reaction Status Date / Time No Known Allergies Allergy Unknown Verified 07/03/22 08:37 Home Medications Medication Instructions Recorded Confirmed Type omeprazole 20 mg capsule,delayed 20 mg PO QAM 10/21/19 07/18/22 History release ipratropium 20 mcg-albuterol 100 1 puff inhalation Q6H #4 grams 06/26/22 07/18/22 Rx mcg/actuation mist for inhalation (Combivent Respimat) apixaban 5 mg tablet (Eliquis) 5 mg PO QAM 07/18/22 07/18/22 History Patient History Medical History (Updated 07/19/22 @ 06:30 by Dwight Garcia MD) COPD (chronic obstructive pulmonary disease) Coronary artery disease S/p three stents Heartburn FREQUENT History of chemotherapy History of pneumonia FEW WEEKS AGO, RESOLVED History of pulmonary embolism Metastatic cancer to brain Metastatic non-small cell lung cancer DX 2018 Status post gamma knife treatment 10/16/17 Surgical History H/O arthroscopy of right knee History of bronchoscopy 09/28/17 History of heart artery stent Stents x 3 History of surgery Right ankle as a child History of surgery PORT, RIGHT UPPER CHEST Hx of cardiac catheterization 1ST CATH 2005 (X2 STENTS- LAD and OM), MOST RECENT CATH 2015 - (STENT X1 to RCA) S/P bronchoscopy with biopsy (10/31/19) Navigational Bronchoscopy with Biopsy Dr. Freeman 10-31-19 Family History Mother , 83yo Dementia Father , 67yo Diabetes Myocardial infarction Melanoma Cancer Brother , 57yo Cerebral aneurysm Brother Polio Sister Stroke Sister No problems noted. Sister Cancer Son No problems noted. Grandmother (Paternal) Cancer Social History Smoking Status: Current every day smoker Tobacco Type: Cigarettes Cigarettes Per Day: 20; Second Hand Exposure: No; Do You Dip or Chew Tobacco: No; Tobacco Cessation Education Requested by Patient: No Hx Alcohol Use: Yes Alcohol type: beer Alcohol type Comment: 6 beers/day; Hx Substance Use: No Preferred Language: Portuguese Communication Ability: Effective Visual Impairment: No Limitations Hearing Ability: Normal Replanting Machine Operator Required: No Beliefs That Will Affect Care: None marital status: Current Living Situation: Alone Current Living Situation Comment: lives in vehicle current occupational status: retired 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 [place] How many Children do You have: 1 Other Information That Helps Us Care for You: No Feels Safe at Home: Yes caffeine: Yes (7 cups/day) during the past year weight has: remained stable Assistive Devices: Glasses Physical Exam Physical Exam: He is alert, anxious, with some tachypnea and use of accessory muscles but not in gross respiratory distress with nasal cannula in place Lungs show markedly decreased breath sounds on the left side relatively good air movement on the He was tachycardic but with regular There is some right upper quadrant tenderness but no guarding or rigidity Extremities do not suggest active DVT Results & Data ([facility]) Vital Signs (Past 12 Hours) Vital Signs Temp Pulse Pulse Resp BP Pulse Ox O2 Del Method 07/18/22 23:00 103 H 07/19/22 04:40 36.4 C L 104 H 24 101/69 96 Nasal Cannula 07/18/22 23:46 36.6 C 106 H 22 114/75 94 Nasal Cannula 07/18/22 22:55 Nasal Cannula 07/18/22 19:15 Oxymask 07/18/22 21:20 109 H 07/18/22 18:58 36.5 C 113 H 32 H 140/91 95 Nasal Cannula O2 Flow Rate 07/18/22 23:00 07/19/22 04:40 5 07/18/22 23:46 4 07/18/22 22:55 4 07/18/22 19:15 4 07/18/22 21:20 07/18/22 18:58 4 Laboratory Results Abnormal lab results 07/18/22 07/18/22 07/18/22 Range/Units 16:11 16:11 16:11 WBC 27.35 H (4.8-10.8) K/ul RBC 4.31 L (4.63-6.08) M/uL Hgb 12.5 L (14.0-18.0) g/dl Hct 35.0 L (40.1-51.0) % RDW Coeff of Kiana 14.9 H (11.5-14.5) % Plt Count 971 H (130-400) K/uL Neut # (Auto) 22.78 H (1.4-6.5) K/uL [facility] # (Auto) 2.26 H (0.24-0.82) K/uL Immature Gran # (Auto) 0.76 H (0.00-0.02) K/uL ESR (0-20) mm/hr PT 13.2 H (9.0-12.0) Seconds INR 1.3 H (0.9-1.1) APTT 34.7 H (21.0-31.0) Seconds Sodium 132 L (136-145) mmol/L Chloride 95 L (98-107) mmol/L Anion Gap 15 H (3-11) BUN 44 H (6-23) mg/dl BUN/Creatinine Ratio 34.9 H (10-20) Glucose 100 H (70-99(Fasting)) mg/dl Lactate (0.4-2.0) mmol/L Uric Acid 9.1 H (2.6-7.2) mg/dl Alkaline Phosphatase 214 H (34-104) U/L C-Reactive Protein (0-0.5) mg/dl Albumin 2.8 L (3.4-5.0) gm/dl Globulin 4.2 H (2.5-4.0) gm/dl Albumin/Globulin Ratio 0.7 L (0.9-2) Procalcitonin (0-0.5) ng/ml Entero/Rhino (PCR) (NotDetected) 07/18/22 07/18/22 07/18/22 Range/Units 16:11 16:11 16:16 WBC (4.8-10.8) K/ul RBC (4.63-6.08) M/uL Hgb (14.0-18.0) g/dl Hct (40.1-51.0) % RDW Coeff of Kiana (11.5-14.5) % Plt Count (130-400) K/uL Neut # (Auto) (1.4-6.5) K/uL [facility] # (Auto) (0.24-0.82) K/uL Immature Gran # (Auto) (0.00-0.02) K/uL ESR > 130 H (0-20) mm/hr PT (9.0-12.0) Seconds INR (0.9-1.1) APTT (21.0-31.0) Seconds Sodium (136-145) mmol/L Chloride (98-107) mmol/L Anion Gap (3-11) BUN (6-23) mg/dl BUN/Creatinine Ratio (10-20) Glucose (70-99(Fasting)) mg/dl Lactate (0.4-2.0) mmol/L Uric Acid (2.6-7.2) mg/dl Alkaline Phosphatase (34-104) U/L C-Reactive Protein 42.94 H (0-0.5) mg/dl Albumin (3.4-5.0) gm/dl Globulin (2.5-4.0) gm/dl Albumin/Globulin Ratio (0.9-2) Procalcitonin 72.97 H (0-0.5) ng/ml Entero/Rhino (PCR) (NotDetected) 07/18/22 07/18/22 07/19/22 Range/Units 17:25 19:16 05:40 WBC 23.26 H (4.8-10.8) K/ul RBC 3.86 L (4.63-6.08) M/uL Hgb 11.2 L (14.0-18.0) g/dl Hct 31.2 L (40.1-51.0) % RDW Coeff of Kiana 14.8 H (11.5-14.5) % Plt Count 873 H (130-400) K/uL Neut # (Auto) (1.4-6.5) K/uL [facility] # (Auto) (0.24-0.82) K/uL Immature Gran # (Auto) (0.00-0.02) K/uL ESR (0-20) mm/hr PT (9.0-12.0) Seconds INR (0.9-1.1) APTT (21.0-31.0) Seconds Sodium (136-145) mmol/L Chloride (98-107) mmol/L Anion Gap (3-11) BUN (6-23) mg/dl BUN/Creatinine Ratio (10-20) Glucose (70-99(Fasting)) mg/dl Lactate 2.2 H* (0.4-2.0) mmol/L Uric Acid (2.6-7.2) mg/dl Alkaline Phosphatase (34-104) U/L C-Reactive Protein (0-0.5) mg/dl Albumin (3.4-5.0) gm/dl Globulin (2.5-4.0) gm/dl Albumin/Globulin Ratio (0.9-2) Procalcitonin (0-0.5) ng/ml Entero/Rhino (PCR) DETECTED A* (NotDetected) Diagnostic Findings See HPI for recent radiology (1) Chest pain Chest pain type: chest pain on breathing Qualified Code(s): R07.1 - Chest pain on breathing
[2022-07-19 06:38] LABS: Albumin Globulin Ratio 0.7 (0.9-2); Albumin Level 2.6 gm/dl (3.4-5.0); BUN Creatinine Ratio 43.8 (10-20); Bilirubin,Total 0.8 mg/dl (0.2-1.0); Calcium 9.8 mg/dl (8.5-10.1); Creatinine Clr Calc Pharmacy 102.7 ml/min; Est GFR (African American) 113.3 ml/min; Est GFR (Non-African American) 97.8 ml/min; Globulin 3.7 gm/dl (2.5-4.0); Magnesium 1.8 mg/dl (1.7-2.4); Phosphorus 3.2 mg/dl (2.5-4.9); Potassium 4.5 mmol/L (3.5-5.1); Total Protein 6.3 gm/dl (6.0-8.3); Uric Acid 5.9 mg/dl (2.6-7.2)
[2022-07-19 06:48] LABS: Basophils # (auto) 0.06 K/uL (0-0.2); Basophils % (auto) 0.3 %; Echinocytes 1+; Eosinophils # (auto) 0.01 K/uL (0-0.50); Immature Granulocytes # (auto) 0.34 K/uL (0.00-0.02); Immature Granulocytes % (auto) 1.5 %; Lymphocytes # (auto) 1.64 K/uL (1.2-3.4); Lymphocytes % (auto) 7.1 %; Monocytes # (auto) 2.47 K/uL (0.24-0.82); Monocytes % (auto) 10.6 %; Neutrophils # (auto) 18.74 K/uL (1.4-6.5); Neutrophils % (auto) 80.5 %
[2022-07-19] MEDS: ALBUT/IPRATROP 3MG/0.5MG NEB 3 ML VIAL NEB SCH ×4 (07:06→20:00)
--- NOTE | 2022-07-19 08:18 | Electrocardiogram Report ---
Test Reason : Blood Pressure : / mmHG Vent. Rate : 105 BPM Atrial Rate : 105 BPM P-R Int : 128 ms QRS Dur : 082 ms QT Int : 332 ms P-R-T Axes : 103 150 125 degrees QTc Int : 438 ms Suspect arm lead reversal, interpretation assumes no reversal Sinus tachycardia Low voltage QRS Possible Lateral infarct , age undetermined Abnormal ECG When compared with ECG of 22-JUN-2022 14:31, Criteria for Lateral infarct is now Present Confirmed by Rahat Castro ([id number]) on 07/19/2022 8:18:32 AM Referred By: Scar Gibbs Confirmed By:Rahat Castro
[2022-07-19] MEDS: guaiFENesin 600 MG TABCR PO SCH ×2 (08:54→22:04)
[2022-07-19] MEDS: PANTOprazole 40 MG TAB PO SCH (08:55)
--- NOTE | 2022-07-19 09:20 | Palliative Care Consultation ---
Date of Consultation July 19, 2022 Assessment & Plan (1) Palliative care encounter: Prognostics score indicate very high mortlaity, less than 30% chance of survival at 30 days. from my exam and review of the data, I anticipate a survival of likely days to weeks for this pt. (2) Cancer related pain: Will begin trial of low dose morphine NUTRITION TECHNICIAN to assist with relief of his very severe air hunger and cancer related pain. Will begin Morphine NUTRITION TECHNICIAN at 0.5mg per hour with 1mg NUTRITION TECHNICIAN q20min prn breakthrough pain or air hunger. If he becomes too drowsy, STOP THE BASAL RATE and please move demand dose to 0.5mg q30min prn instead. I have stopped oral oxycodone. (3) Dyspnea and respiratory abnormalities: (4) Metastatic non-small cell lung cancer: (5) Empyema lung: (6) Weakness generalized: (7) Acute respiratory failure with hypoxia: (8) Pleural effusion, left: (9) Encounter for end of life education, guidance and counseling: (10) COPD (chronic obstructive pulmonary disease): (11) Homeless single person: (12) Social isolation: Plan * Mr Davila and I spoke about Palliative Medicine and how this helps cancer patient. We discussed that cancer patients experience significant symptom and psychosocial burden for which the early integration of supportive oncology with palliative medicine (early findings from the research of Arelis and Juan) help address a growing need to manage patients comprehensively, with an emphasis on symptom control, nutritional and psychosocial support, and pharmaceutical review. Palliative care consultation in patients with advanced cancer is not only associated with an improvement in the quality of oncology care, but also a reduction in downstream healthcare utilization. In Edis et al 2017, when the automatic palliative medicine consult was triggered by specific oncology criteria, 30-day readmission rates and use of chemotherapy after discharge declined, whereas hospice referrals and uptake of support services post-discharge increased. Patients with advanced cancer admitted to an acute care hospital often have short life expectancies and high morbidity - for these patients, the integration of palliative care has improved symptom burden, reduced patient and caregiver distress, increased referral to hospice, and improved outcomes. He was willing to proceed with consultation. * ACP/GOC discussion for 40min: we reviewed that our current medical findings (imaging, labs, palliative prognostic scores which are very high and support mortality of over 70% in 30 days - see calculated scores above in examination); he told me openly, and before my initiating any discussion re EOL issues, that he believes he does not had much time left. He asks what he might expect and what he an do to have relief from suffering. We spoke about moving to a plan of care aligned with his goals - he wants to be as pain free and comfortable as he can and be in a place where his needs can be met but family can come visit. We spoke about the limited utility of chemo at this point, with continued decline and a steadily worsening PS, none of which will dramatically improve with chemo in the context of a very advanced, metastatic lung SCC. We spoke about home hospice vs hospice house vs SNF with comfort care. He states he does not have any extra funds to pay for OOP costs. He does not have a caregiver at his current residence at the [facility]. He has made some amends with son who he reports came in to visit last night but he states he cannot live with his son nor an son come help care for him. He is very receptive to an inpatient hospice home and asks that we look into this option for him - I have notified CM. * I have provided education about the hospice benefit. Hospice is an interdisciplinary program offered by nurses, nurses aides, social workers, chaplains and a medical records auditor for patients with a terminal condition and a life expectancy of less than 6 months. The goal would be to improve the quality of life of the patient in their home setting (home, senior care, and inpatient hospice setting) by providing symptoms management, psychosocial and spiritual support. However, they cannot offer 24 hours care and if the family is unable to provide that care, they will have to consider personal care with out of pocket cost vs. senior care placement.For patients at the end of life, oxygen delivered by a nasal cannula provides no additional symptomatic benefit for relief of refractory dyspnea in patients with life-limiting illness compared with room air: there's a point at which that the oxygen level gets so low that it's no longer compatible with life. By providing suppl emental oxygen, the dying process will be unnecessarily prolonged. Please use less burdensome but more effective strategies such as comfort care meds, oscillating fan, massage, repositioning, etc. (Chrystal AP, Jaja CF, Stephan PA, et al. Effect of palliative oxygen versus room air in relief of breathlessness in patients with refractory dyspnoea: a double-blind, randomized controlled trial. Lancet. 2010;376(1076):722-615. doi:10.1016/A3022-5027616-9717(45)92953-4) * Discussion of code status: pt states he would not desire to be kept alive artificially or have machines to prolong the dying process. He reaffirms DNR/DNI. * I offered him a family meeting with his son. He wants to think about it but feels he an handle the conversation on his own. I spent 105 minutes overall addressing this complex case: 15 in medical data review/discussion with referring provider(s) and/or preparation for the visit 60 in direct interaction with the patient 40 of the 60 min was spent in Advance Care Planning/Goals of Care discussions as detailed above in note (must be >16min) 15 in subsequent review and synthesis of assessment and plan 15 in communicating with other providers regarding the patient's case: primary team, pulm, oncology, primary RN, case mgt History of Present Illness Reason for Consultation: Pain and sx mgt, OC discusson Attending Physician: Roberto Robison MD History of Present Illness Diogenes Davila is a 57yo male admitted 07/18/22 from oncology clinic with worsening left chest pain and dyspnea x 3 weeks and a medical hx signif for metastatic non-small cell lung cancer, COPD, active smoker, and PE. He reports the left chest pain radiates to scapular region as well as his ribs. he also complains of signif dyspnea and air hunger, he is unable to find a comfortable position. he has a deep, rumbling cough with small to moderate amounts of thick ivey mucus. He is short of breath trying to eat/drink or talk. He denies n/v. he has occ constipation. he has never used pain medication on a chronic basis. He notes better relief with IV than oral meds. He denies dysphagia but he is so dyspneic that even trying to eat makes breathing worse and triggers cough. The cough is often forceful and chest feels tight. He was diagnosed with stage IV lung cancer with mets to the brain in 2016, treat ed with Keytruda though he had some unfortunate trouble of insurance lapsing which led to gaps in treatment and his willingness to seek care. Dr. Garcia's excellent note summarizes that pt underwent GammaKnife to the brain in 10/2017 and was seen by oncology 06/2021 at which time his CT scan was stable from prior scans and he was asked to follow up in 3 mos, which again, unfortunately, did not occur. he was started on Eliquis by his PCP. In ED D dimer was positive but CTA neg for PE, imaging revealed a large, invasive bronchogenic tumor in left lung. There is no PTX. troponin notably was 3.8. He had a prior admission 06/22/22. 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 Diogenes is homeless and has been living in his personal vehicle though during the last admission CM made attempts to find pt placement in a boarding house: messages were left for [facility] at [facility] with no response. Per chart review, patient had at that time advised CM he would stay at [facility] in [place] which would charge him $750/month and he is currently receiving $1700/mo from [employer]. Pt istates that is where he has been staying since June discharge. Chart review indicates he has a son from whom he is estranged. It is noted the son is listed as emergency contact but pt states had told CM we are only to call the son if pt is in an end of life or dying circumstance. He remains IADLs and still drives, has not required DMEs/home oxygen. The patient is a daily ETOH consumer. Current imaging reveals: ABDOMEN AND PELVIS CT WITH IV CONTRAST 1. Interval increase in size in the multiple hepatic metastases. 2. There is a new 2.3 cm partially necrotic lesion within the pancreatic tail likely representing metastatic disease. 3. There is a 2.1 cm hypodense focus within the medial aspect of the spleen. This could represent a splenic infarct or a metastatic focus. 4. Please refer to the same day chest CT for further evaluation of the metastatic disease and left pleural effusion. CHEST CTA for PULMONARY ARTERIES 1. Significant increase in size in the large infiltrative necrotic mass involving the mediastinum, left hilum, left lung, and anterior aspect of the left lower lobe. 2. The left upper lobe now demonstrates diffuse consolidation likely due to postobstructive changes and infiltration of the mass. 3. Increase in size in the partially loculated moderate to large left pleural effusion. 4. Progression of the metastatic disease within the mediastinum and left pleura. 5. Interval development of mild right mediastinal shift with moderate narrowing of the trachea and left mainstem bronchus as described above.. 6. Attenuated left-sided pulmonary arteries due to the large mass. However, no definite filling defects within the pulmonary arteries to suggest a pulmonary embolus. 7. Please refer to the same day abdomen and pelvis CT for further evaluation of the abdominal structures. 8. Additional findings as described above. I came to see Diogenes who is seated at edge of bed, trying to eat lunch. He is visibly short of breath and having trouble speaking more than 3 word sentences. he has a severe bursting cough with occasional small amount of thick ivey mucus expectorated. he shares with me that he has been thinking about all the information he has been getting the past few days and states "the way I see it, I don;t have too long. Ad with how I'm feeling I'd say I probably have a few weeks, at best. This isn't good and I know what's coming.I guess we need to figure out what we're going to do about it now." Allergies Allergy/AdvReac Type Severity Reaction Status Date / Time No Known Allergies Allergy Unknown Verified 07/03/22 08:37 Home Medications Medication Instructions Recorded Confirmed Type omeprazole 20 mg capsule,delayed 20 mg PO QAM 10/21/19 07/18/22 History release ipratropium 20 mcg-albuterol 100 1 puff inhalation Q6H #4 grams 06/26/22 07/18/22 Rx mcg/actuation mist for inhalation (Combivent Respimat) apixaban 5 mg tablet (Eliquis) 5 mg PO QAM 07/18/22 07/18/22 History Patient History Medical History (Updated 07/19/22 @ 15:23 by Mere Villatoro DNP) COPD (chronic obstructive pulmonary disease) Coronary artery disease S/p three stents Empyema lung Heartburn FREQUENT History of chemotherapy History of pneumonia FEW WEEKS AGO, RESOLVED History of pulmonary embolism Metastatic cancer to brain Metastatic non-small cell lung cancer DX 2018 Status post gamma knife treatment 10/16/17 Surgical History H/O arthroscopy of right knee History of bronchoscopy 09/28/17 History of heart artery stent Stents x 3 History of surgery Right ankle as a child History of surgery PORT, RIGHT UPPER CHEST Hx of cardiac catheterization 1ST CATH 2005 (X2 STENTS- LAD and OM), MOST RECENT CATH 2016 - (STENT X1 to RCA) S/P bronchoscopy with biopsy (10/31/19) Navigational Bronchoscopy with Biopsy Dr. Freeman 10-31-19 Family History Mother , 83yo Dementia Father , 67yo Diabetes Myocardial infarction Melanoma Cancer Brother , 57yo Cerebral aneurysm Brother Polio Sister Stroke Sister No problems noted. Sister Cancer Son No problems noted. Grandmother (Paternal) Cancer Social History Smoking Status: Current every day smoker Tobacco Type: Cigarettes Cigarettes Per Day: 20; Second Hand Exposure: No; Do You Dip or Chew Tobacco: No; Tobacco Cessation Education Requested by Patient: No Hx Alcohol Use: Yes Alcohol type: beer Alcohol type Comment: 6 beers/day; Hx Substance Use: No Preferred Language: Azeri Communication Ability: Effective Visual Impairment: No Limitations Hearing Ability: Normal Indirect Sales Representative Required: No Beliefs That Will Affect Care: Mormonism marital status: Current Living Situation: Alone Current Living Situation Comment: lives in vehicle current occupational status: retired 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 Will drive himself to groceries, tends to grab meals at convenience store/does not cook. Current residence is a hotel setting, does not have a full kitchen. Eyes: + dry eyes and + decreased night vision Ear, Nose, Mouth, Throat: + hearing loss, + post nasal drip, + dry mouth, + dental pain, + dental caries, + loose teeth, + sore throat, + change in voice, + hoarseness and + pain with swallowing Respiratory: + cough, + chest congestion, + change in sputum, + dyspnea, + dyspnea on exertion, + pain on inspiration, + pain with cough and + sputum production Cardiovascular: + chest pain, + chest pain with activity, + dyspnea, + dyspnea at rest, + orthopnea and + lightheadedness Gastrointestinal: + early satiety and + heartburn Genitourinary: + urinary frequency and + urinary hesitancy Musculoskeletal: + stiffness, + limited range of motion, + muscle weakness and + muscle atrophy Integumentary: + unusual bruising and + change in hair Neurologic: + unsteadiness, + generalized weakness and + headache(s) Psychiatric: + anxiety Endocrine: + heat intolerance Hematologic / Lymphatic: + easy bruising, + lymphadenopathy and + unexplained weight loss Physical Exam Physical Exam: For Oncology Patients: Patient's Palliative Prognostic Score (PaP) Score = 17.5 points,Interpretation: 30-day survival probability <30% (0 - 5.5: 30-day survival probability >70% | 5.6 - 11.0: 30-day survival probability 30-70% | 11.1 - 17.5: 30-day survival probability <30%; https://www.mdapp.co/lmkinwuvbq-ovnzgdtpii-[email or web address]-sir-joiuxutrcu-[email or web address]/) Patient's Palliative Prognostic Index (PPI) Score = 8.5 points (please note: If the PPI is greater than 6.0, survival is less than three weeks -Sensitivity - 80%; Specificity - 85%; [email or web address]://[email or web address]/vlvzmfibql-[email or web address]-[email or web address] ) Constitutional: + acute distress, + ill appearing, + thin, + cachectic (near achexia) and + frail appearing Eyes: PERRL ENMT: Ears: + hearing impairment Nose: + nasal discharge Mouth: + dry oral mucous membranes, + dentition abnormality, + gingival abnormality, + dental caries, + dental restorations, + poor dentition, + chipped teeth and + loose teeth Neck: + tracheal deviation Respiratory: + respiratory distress, + labored breathing, + uses accessory muscles (+conversational dyspnea +frequent bronchitic cough, ivey sputum), + cough, + abnormal respiratory pattern, + prolonged expiratory phase and + pursed lip breathing diminished breath sounds left > right, sounds "tight" with intermittent wheezing, coughing is deep/rumbling and at times coarse sounding with frequent throat clearing. He has trouble catching his breath Abd muscle use with breathing noted ; tender along ribs left more than right Cardiovascular: Rate/Rhythm: + tachycardic Heart Sounds: normal S1 and normal S2 Extremities: + vascular access device Chest (Breasts): Chest: + vascular access device or port (Left chest pig tail catheter++) Gastrointestinal (Abdomen): Inspection/Auscultation: normal bowel sounds Percussion/Palpation: abdomen soft and + dullness to percussion Musculoskeletal: Spine: + lumbar spinal tenderness, + paraspinal tenderness and + pain with lateral compression Gait: + antalgic gait Skin: + turgor decreased, + skin tightening, + pallor and + hair thinning Neurologic: PERRL, EOMI, accommodation nl, no face palsy, no dysarthria Psychiatric: Apperance: + disheveled Eye Contact: good eye contact Motor Behavior: no abnormal motor movements Speech: + pressured speech (at times, following coughing) and normal rate/rhythm/volume of speech Affect: + anxious affect and + flat affect Thought Process: clear/coherent thought process Thought Content: + loneliness and + guilt Homicidal Thoughts: denies homicidal thoughts Cognition: recent memory grossly intact, remote memory grossly intact, attention grossly intact and language grossly intact Insight: good insight Judgement: good judgement (for current situation and its implications for mortality) Results & Data ([facility]) Vital Signs (Past 12 Hours) Vital Signs Temp Pulse Pulse Resp BP Pulse Ox O2 Del Method 07/19/22 07:40 36.5 C 97 H 23 102/71 96 Nasal Cannula 07/19/22 07:06 98 H 20 92 Nasal Cannula 07/18/22 23:00 103 H 07/19/22 04:40 36.4 C L 104 H 24 101/69 96 Nasal Cannula 07/18/22 23:46 36.6 C 106 H 22 114/75 94 Nasal Cannula 07/18/22 22:55 Nasal Cannula 07/18/22 21:20 109 H O2 Flow Rate 10/19/22 07:40 4 07/19/22 07:06 5 07/18/22 23:00 07/19/22 04:40 5 07/18/22 23:46 4 07/18/22 22:55 4 07/18/22 21:20
[2022-07-19] MEDS: allopurinoL 300 MG TAB PO SCH (10:09)
--- NOTE | 2022-07-19 11:42 | Procedure Note ---
Procedure Note Date of Service July 19, 2022 Note PIGTAIL CATHETER PLACEMENT NOTE: Procedure: Pigtail Catheter Chest Tube Placement Indication: Left pleural effusion Anesthesia: 15 mL lidocaine 1% Written consent was obtained and placed on the chart. Timeout was done prior to the procedure. Prior to procedure, chest x-ray films were reviewed by myself and demonstrated a large loculated left pleural effusion. A time-out was completed verifying correct patient, procedure, site, positioning, and implant(s) or special equipment if applicable. Utilizing bedside ultrasound, chest wall was evaluated for location for optimal chest tube placement. Location between the fifth and s ixth ribs were marked on the skin using gentle pressure. The left sided chest wall was prepped with chlorhexidine and draped in the typical sterile fashion. 15 mL of 1% Lidocaine without epinephrine was used to anesthetize the skin down to the dorsal surface of the fifth rib. Gray-colored fluid return confirmed entry into the pleural space. Lidocaine was injected into the pleural space for increased anesthetization. Introducer needle on syringe was inserted in perpendicular fashion taking care to ride just above the dorsal surface of the fifth rib. Entry into the pleural space was heralded by gray-colored fluid return into the syringe while under gentle aspiration. Guide wire was advanced into the pleural space without resistance and the introducer needle was subsequently removed. Scalpel was used to make small incision of the superficial tissue, parallel to the direction of the rib anatomy. Dilator was advanced uneventfully over the guide wire into the pleural space. 14 [place] Pigtail Catheter was inserted into the pleural space. Inner introducer and guide wire were removed. Drain was immediately connected to pre-prepared SHANIQUE pleur-evac system. Pigtail was sutured securely in place and sterile dressing was applied. Chest tube was placed to -20 cmH2O suction. Patient tolerated procedure well. Blood Loss: Minimal Complications: None Post procedure chest x-ray is ordered. Coding CPT Codes Pulmonary/Thoracic - Pulmonary and Thoracic: 48004 Tube thoracostomy ([id number]) [facility] Procedure Codes (Charges) Pulmonary/Thoracic Procedure 1: Pulmonary and Thoracic: 98693 Tube thoracostomy
[2022-07-19] MEDS: oxyCODONE HCL IR 5 MG TAB (IMMEDIATE RELEASE) PO PRN (11:49)
--- NOTE | 2022-07-19 12:00 | Hospitalist Progress Note ---
Date of Service July 19, 2022 Assessment & Plan (1) Acute respiratory failure with hypoxia: Plan: Treat underlying pneumonia and malignancy. Left chest tube in place now after thoracentesis. Supplemental oxygen to maintain saturation greater than 90%. (2) Metastatic cancer: Plan: Metastatic small cell lung cancer. Oncology consultation appreciated. Initiation of chemotherapy is recommended as soon as possible if the patient desires. Palliative care consultation pending. (3) Small cell lung cancer: Plan: As above (4) Postobstructive pneumonia: Plan: Currently on Zosyn and azithromycin, day 2. Obtain sputum culture if sputum is produced. MRSA nasal swab negative (5) Pleural effusion, left: Plan: Pulmonary medicine consultation appreciated. Left thoracentesis completed today, July 19 with placement of left chest tube. Serial chest x-ray. (6) History of pulmonary embolism: Plan: Treated with Eliquis. (7) COPD (chronic obstructive pulmonary disease): Plan: Acute exacerbation due to malignancy and suspected associated postobstructive pneumonia. Parenteral steroids, intravenous antibiotics, scheduled DuoNebs. Pulmonary medicine consultation appreciated (8) Coronary artery disease: Plan: s/p three coronary artery stents. Telemetry. Medical management (9) Heartburn: Plan: Continue pantoprazole 40mg PO daily (10) Metastatic non-small cell lung cancer: Plan: History of this - treated with GammaKnife surgery and Keytruda. Plan VTE Prophylaxis -start Lovenox after pulmonary procedures Disposition -to be determined Admission and Anticipated Discharge Date Admission Date: July 18, 2022 Subjective The patient was seen after undergoing left thoracentesis and chest tube placement. He is short of breath with audible wheezing and rhonchi. He has made clear that he wants to be DNR. He remains on Zosyn and azithromycin, day 2. Intravenous Solu-Medrol will be added. Diet has been started and intravenous fluids will be discontinued since he will not tolerate any fluid overload. Review of Systems Review of Systems: Constitutional-no fever or chills. Chronically ill- appearing ENT-no blurred vision, no double vision, no epistaxis, no sore throat Respiratory-nonproductive cough. Wheezing. Shortness of breath Cardiac-no palpitations, no chest pain, no syncope GI-no nausea, vomiting, diarrhea, melena, hematochezia -no urinary retention, no urinary incontinence, no dysuria, no hematuria Musculoskeletal-no joint pain, no muscle tenderness Skin-no bruising, no rashes, no pruritus Neuro-no isolated weakness, no paresthesia, no weakness Psych-no depression, no anxiety Physical Exam Physical Exam: General-alert and oriented x3, appears chronically ill HEENT-head atraumatic and normocephalic, pupils equal and reactive to light, extraocular muscles intact Neck-no lymphadenopathy or thyromegaly, trachea midline Chest-tachypnea, bilateral rhonchi, chest tube in place left hemithorax. Bilateral expiratory wheezes. Tachypnea. Cardiac-mildly tachycardic regular rhythm. Normal S1 and S2 Abdomen-normal bowel sounds, nontender, no hepatosplenomegaly Extremities-no cyanosis, clubbing, or edema Neuro-cranial nerves II through XII intact, motor and sensory function within normal limits, strength symmetrical , no focal deficits Psych-depressed affect Results & Data Results & Data ([facility]) Vital Signs (Past 12 Hours) Vital Signs Temp Pulse Resp BP Pulse Ox O2 Del Method O2 Flow Rate 07/19/22 11:42 107 H 25 H 95 Nasal Cannula 5 07/19/22 11:33 36.9 C 108 H 24 106/73 95 Nasal Cannula 4 07/19/22 09:49 Nasal Cannula 5 07/19/22 07:40 36.5 C 97 H 23 102/71 96 Nasal Cannula 4 07/19/22 07:06 98 H 20 92 Nasal Cannula 5 07/19/22 04:40 36.4 C L 104 H 24 101/69 96 Nasal Cannula 5 Laboratory Results 07/19/22 05:40 07/19/22 05:40 PG Care Time/CCT Total # of Minutes Spent Total Time Spent with Patient: Total time spent is greater than 50% in coordination of care (as documented) at patient's floor/unit and/or counseling patient: Coding Level of Care Code 38557 Subseq Hosp Care Lvl 3 Diagnoses Acute respiratory failure with hypoxia J96.01 Metastatic cancer C79.9 Small cell lung cancer C34.90 Postobstructive pneumonia J18.9 Pleural effusion, left J90 History of pulmonary embolism Z86.711 COPD (chronic obstructive pulmonary disease) J44.9 Coronary artery disease I25.10 Heartburn R12 Metastatic non-small cell lung cancer C34.90
--- NOTE | 2022-07-19 12:19 | XRay Report ---
XR chest 1V portable CLINICAL HISTORY: s/p left chest tube placement COMPARISON STUDY: Chest radiograph and chest CT July 18, 2022. FINDINGS: Interval placement of a left pleural catheter is noted. There is no pneumothorax. Extensive opacification of the left hemithorax is noted. This is due to the left upper lobe mass and associate d pleural effusion. A hiatal hernia is present. No consolidation within the right lung is noted. Ther e is no evidence for pulmonary edema. Right internal jugular [id number] is in place. Mediastinal a nd left hilar adenopathy is better depicted on prior chest CT. IMPRESSION: Interval placement of a left pleural catheter. No pneumothorax. Left hemithorax opacifi cation, as described above. ACT 112: Negative or not required by law. Electronically signed by: Tru Mcmahan M.D. 07/19/2022 12:17 PM
[2022-07-19 12:34] LABS: Amylase Pleural Fluid 19 U/L; Glucose Pleural Fluid < 10 mg/dl; LDH Pleural Fluid > 12000 U/L; Total Protein Pleural Fluid 4.3 gm/dl
[2022-07-19] MEDS: methylPREDNISolone 40 MG in SYRINGE 0 ML IV SCH ×2 (12:35→19:55)
[2022-07-19 13:00] LABS: Bilirubin,Total 0.9 mg/dl (0.2-1.0); Total Protein 6.4 gm/dl (6.0-8.3)
--- NOTE | 2022-07-19 13:10 | Pulmonary Consultation ---
Date of Consultation July 19, 2022 Assessment & Plan (1) Empyema lung: (2) Small cell lung cancer: (3) Metastatic cancer: Plan 57-year-old unfortunate male with a history of stage IV non-small cell lung cancer previously treated with chemotherapy now presenting with metastatic small cell lung cancer in the left empyema. Pigtail catheter in place with suction to -40 cm H2O. We will likely have to proceed with tPA/dornase to try and clear the empyema, but given that he receiv ed Theodore yesterday;I would like to make certain that his effusion does not transform to a more sanguinous effusion prior to initiating tPA dornase. I would like to continue drainage for the next 12 hours prior to the instillation of tPA and dornase via the chest tube. I am doubtful that we will be able to medically clear the empyema without surgical debridement such as VATS. He would need to be transferred to tertiary center for thoracic surgery evaluation. I am doubtful that he would tolerate such a procedure given his extensive metastatic disease. This is unfortunately a very difficult situation as the patient needs high-dose chemotherapy to treat his extensive bulky small cell lung cancer, but also has a concomitant severe empyema. Appreciate input from palliative care medicine and hematology/oncology. I personally discussed the case with the patient's oncologist and hospitalist at bedside. He is overall prognosis is very guarded. History of Present Illness Reason for Consultation: Pleural effusion and mass-effect on left mainstem bronchus and trachea Attending Physician: Roberto Robison MD History of Present Illness 57-year-old male with a past medical history of previously treated metastatic non-small cell lung cancer who is now presenting with rapidly progressive metastatic small cell cancer. CT was completed yesterday which demonstrated a very large loculated left pleural effusion. Patient was having increasing shortness of breath, cough and hypoxia. He is requiring 5 L oxygen. He reports severe pain on the left chest wall and fatigue. I placed a left pigtail catheter this morning and was able to remove approximately 600 mL of pleural fluid that appears to be marcia empyema. The pigtail is currently hooked up to suction. Patient noticed some improvement in shortness of breath. Post procedure chest x-ray demonstrated a large layering pleural effusion on the left with mass-effect. Allergies Allergy/AdvReac Type Severity Reaction Status Date / Time No Known Allergies Allergy Unknown Verified 07/03/22 08:37 Home Medications Medication Instructions Recorded Confirmed Type omeprazole 20 mg capsule,delayed 20 mg PO QAM 10/21/19 07/18/22 History release ipratropium 20 mcg-albuterol 100 1 puff inhalation Q6H #4 grams 06/26/2207/01 Rx mcg/actuation mist for inhalation (Combivent Respimat) apixaban 5 mg tablet (Eliquis) 5 mg PO QAM 07/18/22 07/18/22 History Patient History Medical History (Updated 07/19/22 @ 13:05 by Gilbert Fox MD) COPD (chronic obstructive pulmonary disease) Coronary artery disease S/p three stents Empyema lung Heartburn FREQUENT History of chemotherapy History of pneumonia FEW WEEKS AGO, RESOLVED History of pulmonary embolism Metastatic cancer to brain Metastatic non-small cell lung cancer DX 2018 Status post gamma knife treatment 10/16/17 Surgical History H/O arthroscopy of right knee History of bronchoscopy 09/28/17 History of heart artery stent Stents x 3 History of surgery Right ankle as a child History of surgery PORT, RIGHT UPPER CHEST Hx of cardiac catheterization 1ST CATH 2005 (X2 STENTS- LAD and OM), MOST RECENT CATH 2015 - (STENT X1 to RCA) S/P bronchoscopy with biopsy (10/31/19) Navigational Bronchoscopy with Biopsy Dr. Freeman 10-31-19 Family History Mother , 83yo Dementia Father , 67yo Diabetes Myocardial infarction Melanoma Cancer Brother , 57yo Cerebral aneurysm Brother Polio Sister Stroke Sister No problems noted. Sister Cancer Son No problems noted. Grandmother (Paternal) Cancer Social History Smoking Status: Current every day smoker Tobacco Type: Cigarettes Cigarettes Per Day: 20; Second Hand Exposure: No; Do You Dip or Chew Tobacco: No; Tobacco Cessation Education Requested by Patient: No Hx Alcohol Use: Yes Alcohol type: beer Alcohol type Comment: 6 beers/day; Hx Substance Use: No Preferred Language: Icelandic Communication Ability: Effective Visual Impairment: No Limitations Hearing Ability: Normal Strawhat Blocking Operator Required: No Beliefs That Will Affect Care: None marital status: Current Living Situation: Alone Current Living Situation Comment: lives in vehicle current occupational status: retired 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 Eyes: Pupils are equal round and reactive to light. Conjunctivae are normal. Anicteric sclera. Ears nose, mouth and throat: Deferred. Neck: Trachea is midline. Visual inspection is normal. Respiratory: Diminished on the left with coarse rhonchi bilaterally. Coughing frequently. Cardiovascular: Regular rate and rhythm. No murmurs. No edema. Gastrointestinal: Normal bowel sounds, soft, nontender and nondistended. No hepatosplenomegaly noted. Musculoskeletal: No cyanosis. Patient is able to move all extremities. Strength is 5 out of 5 in the upper and lower extremities. Skin: No rashes, warm dry and intact. Neurologic: No obvious focal neurological deficits seen. Psychiatric: Alert and oriented x3 with a euthymic affect. Results & Data Results & Data ([facility]) Vital Signs (Past 12 Hours) Vital Signs Temp Pulse Resp BP Pulse Ox O2 Del Method O2 Flow Rate 07/19/22 11:42 107 H 25 H 95 Nasal Cannula 5 07/19/22 11:33 36.9 C 108 H 24 106/73 95 Nasal Cannula 4 07/19/22 09:49 Nasal Cannula 5 07/19/22 07:40 36.5 C 97 H 23 102/71 96 Nasal Cannula 4 07/19/22 07:06 98 H 20 92 Nasal Cannula 5 07/19/22 04:40 36.4 C L 104 H 24 101/69 96 Nasal Cannula 5 PG Care Time/CCT Total # of Minutes Spent Total Time Spent with Patient: Total time spent is greater than 50% in coordination of care (as documented) at patient's floor/unit and/or counseling patient: Coding Level of Care Code 62575 Initial Inpt Care Lvl 3 Diagnoses Empyema lung J86.9 Small cell lung cancer C34.90 Metastatic cancer C79.9
[2022-07-19 13:25] LABS: Appearance Pleural Fluid Opaque; Lymphocytes, Fluid 17 %; Mono,Macrophage,Mesothelial 7 %; Neutrophils, Fluid 76 %; RBC Pleural Fluid (A) 200000 /uL; Source Pleural Fluid Left Lung; WBC Pleural Fluid (A) 327300 /uL
[2022-07-19] MEDS ORDERED: NALOXONE HCL 0.4 MG/1 ML VIAL/CARP IV PRN (14:18)
[2022-07-19] MEDS ORDERED: MoRPHine SULFATE PCA 30 MG/30 ML IV PRN (14:30)
[2022-07-19] MEDS: SODIUM CHLORIDE 0.9% 1000ML 1,000 ML IV SCH (15:35)
[2022-07-19] MEDS: MoRPHine SULFATE PCA 30 MG/30 ML IV PRN (15:53)
--- NOTE | 2022-07-19 19:06 | Oncology Consultation ---
Date of Consultation July 19, 2022 Assessment & Plan (1) Small cell lung cancer: Given his overall performance status, comorbidities, I decision has been made to forego any chemotherapy or other oncologic specific treatment in favor of a symptom management/hospice approach Plan Patient has much improved symptom control with appreciation to the hospitalist, pulmonary, and palliative care teams. His son was present and we were able to speak quite frankly and cogently about his current situation. Patient seems to have full capacity for medical decision-making at this time. We have discussed the conclusion he reached with palliative care earlier today to pursue a hospice approach without any further attempts at chemotherapy or oncologic treatment. I have noted that while there may be occasional dramatic responses of small cell lung cancer to combination chemotherapy, his overall prognosis and comorbidities suggest that he might not easily achieve a response without excessive toxicity and even if he did it might not be very long-lasting at all. He embraces the concept of focusing solely on immediate quality of life issues. We did discuss that his life could be quite short though noted that it is variable from patient to patient and we cannot be specific about an expectation of duration of survival though acknowledged that it might be quite short. I discussed that the hospitalist and pulmonary teams will determine what they can do to quickly stabilize his funcitonal situation but it may neither be completely helpful to engage in prolonged antibiotics or chest tube drainage. We will be working to shift the focus increasingly exclusively to symptom management and hopefully quickly get him to a setting where he can receive more comprehensive hospice like care. Both the patient and his son seem at peace with his diagnosis, prognosis, and this plan of care History of Present Illness Reason for Consultation: Follow-up patient with small cell lung cancer admitted with pneumonia/empyema and uncontrolled pain Attending Physician: Roberto Robison MD History of Present Illness As per full consultation earlier in the day Allergies Allergy/AdvReac Type Severity Reaction Status Date / Time No Known Allergies Allergy Unknown Verified 07/03/22 08:37 Home Medications Medication Instructions Recorded Confirmed Type omeprazole 20 mg capsule,delayed 20 mg PO QAM 10/21/19 07/18/22 History release ipratropium 20 mcg-albuterol 100 1 puff inhalation Q6H #4 grams 06/26/22 07/18/22 Rx mcg/actuation mist for inhalation (Combivent Respimat) apixaban 5 mg tablet (Eliquis) 5 mg PO QAM 07/18/22 07/18/22 History Patient History Medical History (Updated 07/19/22 @ 15:23 by Mere Villatoro DNP) COPD (chronic obstructive pulmonary disease) Coronary artery disease S/p three stents Empyema lung Heartburn FREQUENT History of chemotherapy History of pneumonia FEW WEEKS AGO, RESOLVED History of pulmonary embolism Metastatic cancer to brain Metastatic non-small cell lung cancer DX 2018 Status post gamma knife treatment 10/16/17 Surgical History H/O arthroscopy of right knee History of bronchoscopy 09/28/17 History of heart artery stent Stents x 3 History of surgery Right ankle as a child History of surgery PORT, RIGHT UPPER CHEST Hx of cardiac catheterization 1ST CATH 2005 (X2 STENTS- LAD and OM), MOST RECENT CATH 2015 - (STENT X1 to RCA) S/P bronchoscopy with biopsy (10/31/19) Navigational Bronchoscopy with Biopsy Dr. Freeman 10-31-19 Family History Mother , 83yo Dementia Father , 67yo Diabetes Myocardial infarction Melanoma Cancer Brother , 57yo Cerebral aneurysm Brother Polio Sister Stroke Sister No problems noted. Sister Cancer Son No problems noted. Grandmother (Paternal) Cancer Social History Smoking Status: Current every day smoker Tobacco Type: Cigarettes Cigarettes Per Day: 20; Second Hand Exposure: No; Do You Dip or Chew Tobacco: No; Tobacco Cessation Education Requested by Patient: No Hx Alcohol Use: Yes Alcohol type: beer Alcohol type Comment: 6 beers/day; Hx Substance Use: No Preferred Language: Afghan Communication Ability: Effective Visual Impairment: No Limitations Hearing Ability: Normal Bricklayer Supervisor Required: No Beliefs That Will Affect Care: Yazdanism marital status: Current Living Situation: Alone Current Living Situation Comment: lives in vehicle current occupational status: retired 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 He is wearing oxygen sitting up in bed but is easily conversant and much less agitated Results & Data ([facility]) Vital Signs (Past 12 Hours) Vital Signs Temp Pulse Resp BP Pulse Ox O2 Del Method O2 Flow Rate 07/19/22 15:45 36.3 C L 107 H 26 H 152/85 H 94 Nasal Cannula 07/19/22 15:19 97 H 19 94 Nasal Cannula 5 07/19/22 11:42 107 H 25 H 95 Nasal Cannula 5 07/19/22 11:33 36.9 C 108 H 24 106/73 95 Nasal Cannula 4 07/19/22 09:49 Nasal Cannula 5 07/19/22 07:40 36.5 C 97 H 23 102/71 96 Nasal Cannula 4 07/19/22 07:06 98 H 20 92 Nasal Cannula 5
[2022-07-19] MEDS: AZITHROMYCIN 500 MG in DEXTROSE 5% 250 ML IV SCH (19:37)
[2022-07-20] MEDS ORDERED: HEPARIN 100 UNIT/ML 5ML FLUSH FLUSH PRN (00:48)
[2022-07-20] MEDS: methylPREDNISolone 40 MG in SYRINGE 0 ML IV SCH ×4 (00:54→18:09)
[2022-07-20] MEDS: PIPERACILLIN/TAZOBACTAM 4.5 GM in DEXTROSE 5% 100 ML IV SCH ×3 (05:06→22:56)
[2022-07-20] MEDS: ALBUT/IPRATROP 3MG/0.5MG NEB 3 ML VIAL NEB SCH ×4 (07:12→19:20)
[2022-07-20 07:13] LABS: Hematocrit (blood only) 31.4 % (40.1-51.0); Hemoglobin 11.2 g/dl (14.0-18.0); Mean Corpuscular Hemoglobin 29.2 pg (25.0-34.0); Mean Corpuscular Hgb Conc 35.7 g/dL (32.0-36.0); Platelet Count 797 K/uL (130-400); RDW Coefficient of Variation 15.3 % (11.5-14.5); RDW Standard Deviation 45.5 fL (36.4-46.3); Red Blood Count 3.83 M/uL (4.63-6.08); White Blood Count 20.94 K/ul (4.8-10.8)
[2022-07-20 07:45] LABS: Albumin Globulin Ratio 0.7 (0.9-2); Albumin Level 2.7 gm/dl (3.4-5.0); BUN Creatinine Ratio 48.4 (10-20); Bilirubin,Total 0.5 mg/dl (0.2-1.0); Calcium 10.2 mg/dl (8.5-10.1); Creatinine Clr Calc Pharmacy 128.3 ml/min; Est GFR (African American) 124.2 ml/min; Est GFR (Non-African American) 107.2 ml/min; Globulin 3.9 gm/dl (2.5-4.0); Magnesium 1.9 mg/dl (1.7-2.4); Phosphorus 2.8 mg/dl (2.5-4.9); Potassium 4.5 mmol/L (3.5-5.1); Total Protein 6.6 gm/dl (6.0-8.3); Uric Acid 3.1 mg/dl (2.6-7.2)
[2022-07-20] MEDS: guaiFENesin 600 MG TABCR PO SCH ×2 (07:59→20:34)
[2022-07-20] MEDS: PANTOprazole 40 MG TAB PO SCH (08:00)
[2022-07-20] MEDS: allopurinoL 300 MG TAB PO SCH (08:00)
[2022-07-20] MEDS: ALTEPLASE, RECOMBINANT 10 MG in SYRINGE 50 ML IPL SCH ×2 (11:46→23:09)
--- NOTE | 2022-07-20 12:10 | Pulmonology Progress Note ---
Date of Service July 20, 2022 Assessment & Plan (1) Empyema lung: (2) Small cell lung cancer: (3) Metastatic cancer: Plan 57-year-old unfortunate male with a history of stage IV non-small cell lung cancer previously treated with chemotherapy now presenting with metastatic small cell lung cancer and a severe left empyema. Left pigtail chest tube placed 07/19/2022. 1.1 L of purulent fluid has been drained thus far. Glucose less than 10. Gram-negative rods growing from the pleural fluid. MIST2 protocol initiated. I instilled tPA this afternoon without any complication. Continue with antibiotic therapy. Symptoms at this time are focused on palliation from palliative care notes. Patient does not wish to pursue chemo or immunotherapy. He is overall prognosis is very guarded. Admission and Anticipated Discharge Date Admission Date: July 18, 2022 Subjective More comfortable today and is currently on a VIRTUAL ASSISTANT pump for pain control. He is up and eating lunch. Family is at bedside. 1.1 L of purulent fluid has come out of the left chest tube. His shortness of breath is better. Review of Systems Review of Systems: All systems reviewed & are unremarkable except as noted in HPI & below Physical Exam Physical Exam: Constitutional: Thin and frail appearing male in moderate distress. Eyes: Pupils are equal round and reactive to light. Conjunctivae are normal. Anicteric sclera. Ears nose, mouth and throat: Deferred. Neck: Trachea is midline. Visual inspection is normal. Respiratory: Diminished on the left with coarse rhonchi bilaterally. Coughing frequently. Left chest tube in place and secure. Cardiovascular: Regular rate and rhythm. No murmurs. No edema. Gastrointestinal: Normal bowel sounds, soft, nontender and nondistended. No hepatosplenomegaly noted. Musculoskeletal: No cyanosis. Patient is able to move all extremities. Strength is 5 out of 5 in the upper and lower extremities. Skin: No rashes, warm dry and intact. Neurologic: No obvious focal neurological deficits seen. Psychiatric: Alert and oriented x3 with a euthymic affect. Results & Data Results & Data ([facility]) Vital Signs (Past 12 Hours) Vital Signs Temp Pulse Resp BP Pulse Ox O2 Del Method O2 Flow Rate 07/20/22 10:40 104 H 20 95 Nasal Cannula 5 07/20/22 10:22 Nasal Cannula 6 07/20/22 07:26 36.4 C L 96 H 18 125/78 95 Nasal Cannula 07/20/22 07:12 94 H 24 96 Nasal Cannula 6 07/20/22 05:04 36.5 C 94 H 22 134/78 94 Nasal Cannula 6 PG Care Time/CCT Total # of Minutes Spent Total Time Spent with Patient: Total time spent is greater than 50% in coordination of care (as documented) at patient's floor/unit and/or counseling patient: Coding Level of Care Code 82996 Subseq Hosp Care Lvl 3 Diagnoses Empyema lung J86.9 Small cell lung cancer C34.90 Metastatic cancer C79.9
--- NOTE | 2022-07-20 12:12 | Procedure Note ---
Procedure Note Date of Service July 20, 2022 Supervising Physician Co-Signing Physician Notes TPA ADMINISTRATION via a left chest tube- Procedure Name: Administration of TPA through Chest Tube for complicated parapneumonic effusion/empyema (MIST2 Protocol) Procedure time out: side/site verified, patient ID confirmed, correct procedure Consent obtained: Verbally Time of procedure: 12 PM Indications: Therapeutic Contraindications: None Description: Using clean technique, the chest tube was clamped proximal to the tubing connector and line was observed for air leak. There was no evidence of air leak in the chest tube. Using a 60 mL syringe, Alteplase 10mg mixed with 50mL NSS was instilled without difficulty. The chest tube was left clamped and nursing was instructed to drain in one hour. Complications: No immediate complications appreciated. Patient tolerated procedure: Well Post-procedure vital signs: Reviewed and stable. Coding CPT Codes Pulmonary/Thoracic - Pulmonary and Thoracic: 42589 [place] chest fibrin initial day ([id number]) [facility] Procedure Codes (Charges) Pulmonary/Thoracic Procedure 1: Pulmonary and Thoracic: 90390 [place]se chest fibrin initial day
[2022-07-20] MEDS: DORNASE ALFA 5 ML in SYRINGE 25 ML IPL SCH (13:33)
--- NOTE | 2022-07-20 13:34 | Hospitalist Progress Note ---
Date of Service July 20, 2022 Assessment & Plan (1) Acute respiratory failure with hypoxia: Plan: Treat underlying pneumonia and malignancy. Left chest tube in place now after thoracentesis. Supplemental oxygen to maintain saturation greater than 90%. (2) Metastatic cancer: Plan: Metastatic small cell lung cancer. Oncology consultation appreciated. The patient has opted for hospice care. Palliative care consultation appreciated . (3) Small cell lung cancer: Plan: As above (4) Postobstructive pneumonia: Plan: Currently on Zosyn and azithromycin, day 3. Gram-negative's isolated in the empyema fluid. MRSA nasal swab negative (5) Pleural effusion, left: Plan: Pulmonary medicine consultation appreciated. Left thoracentesis completed on July 19 with placement of left chest tube. This appears to be an empyema. Gram-negative's isolated. tPA instillation today, July 20. Serial chest x- ray. (6) History of pulmonary embolism: Plan: Treated with Eliquis. (7) COPD (chronic obstructive pulmonary disease): Plan: Acute exacerbation due to malignancy and suspected associated postobstructive pneumonia. Parenteral steroids, intravenous antibiotics, scheduled DuoNebs. Pulmonary medicine consultation appreciated (8) Coronary artery disease: Plan: s/p three coronary artery stents. Telemetry. Medical management (9) Heartburn: Plan: Continue pantoprazole 40mg PO daily (10) Metastatic non-small cell lung cancer: Plan: Prior treatment with GammaKnife surgery and Keytruda. (11) Empyema of left pleural space: Plan: Gram-negative's isolated. Currently on Zosyn and azithromycin. tPA infused through the left chest tube today per pulmonary medicine. Plan VTE Prophylaxis -start Lovenox after pulmonary procedures Disposition -eventual placement with hospice Admission and Anticipated Discharge Date Admission Date: July 18, 2022 Subjective Alert and oriented. He has opted for hospice care. He underwent tPA instillation through the left chest tube today. Gram-negative's are growing in the culture of the empyema. He is currently on Zosyn and azithromycin Review of Systems Review of Systems: Constitutional-no fever or chills. Chronically ill- appearing ENT-no blurred vision, no double vision, no epistaxis, no sore throat Respiratory-nonproductive cough. Wheezing. Shortness of breath Cardiac-no palpitations, no chest pain, no syncope GI-no nausea, vomiting, diarrhea, melena, hematochezia -no urinary retention, no urinary incontinence, no dysuria, no hematuria Musculoskeletal-no joint pain, no muscle tenderness Skin-no bruising, no rashes, no pruritus Neuro-no isolated weakness, no paresthesia, no weakness Psych-no depression, no anxiety Physical Exam Physical Exam: General-alert and oriented x3, appears chronically ill HEENT-head atraumatic and normocephalic, pupils equal and reactive to light, extraocular muscles intact Neck-no lymphadenopathy or thyromegaly, trachea midline Chest-tachypnea, bilateral rhonchi, chest tube in place left hemithorax. Bilateral expiratory wheezes. Tachypnea. Cardiac-mildly tachycardic regular rhythm. Normal S1 and S2 Abdomen-normal bowel sounds, nontender, no hepatosplenomegaly Extremities-no cyanosis, clubbing, or edema Neuro-cranial nerves II through XII intact, motor and sensory function within normal limits, strength symmetrical , no focal deficits Psych-depressed affect Results & Data Results & Data ([facility]) Vital Signs (Past 12 Hours) Vital Signs Temp Pulse Resp BP Pulse Ox O2 Del Method O2 Flow Rate 07/20/22 10:40 104 H 20 95 Nasal Cannula 5 07/20/22 10:22 Nasal Cannula 6 07/20/22 07:26 36.4 C L 96 H 18 125/78 95 Nasal Cannula 07/20/22 07:12 94 H 24 96 Nasal Cannula 6 07/20/22 05:04 36.5 C 94 H 22 134/78 94 Nasal Cannula 6 Laboratory Results 07/20/22 05:26 07/20/22 05:26 PG Care Time/CCT Total # of Minutes Spent Total Time Spent with Patient: Total time spent is greater than 50% in coordination of care (as documented) at patient's floor/unit and/or counseling patient: Coding Level of Care Code 65093 Subseq Hosp Care Lvl 3 Diagnoses Acute respiratory failure with hypoxia J96.01 Metastatic cancer C79.9 Small cell lung cancer C34.90 Postobstructive pneumonia J18.9 Pleural effusion, left J90 History of pulmonary embolism Z86.711 COPD (chronic obstructive pulmonary disease) J44.9 Coronary artery disease I25.10 Heartburn R12 Metastatic non-small cell lung cancer C34.90 Empyema of left pleural space J86.9
[2022-07-20 14:11] LABS: Basophils # (auto) 0.05 K/uL (0-0.2); Basophils % (auto) 0.5 %; Eosinophils # (auto) 0.03 K/uL (0-0.50); Eosinophils % (auto) 0.1 %; Immature Granulocytes # (auto) 0.35 K/uL (0.00-0.02); Immature Granulocytes % (auto) 1.7 %; Lymphocytes # (auto) 0.87 K/uL (1.2-3.4); Lymphocytes % (auto) 4.2 %; Monocytes # (auto) 0.66 K/uL (0.24-0.82); Monocytes % (auto) 3.2 %; Neutrophils # (auto) 18.98 K/uL (1.4-6.5); Neutrophils % (auto) 90.6 %
--- NOTE | 2022-07-20 14:42 | XRay Report ---
SINGLE VIEW CHEST CLINICAL HISTORY: Dyspnea FINDINGS: An AP, portable, upright chest radiograph is compared to chest x-ray dictated 07/19/2018 an d correlated with chest CT dated 07/18/2022. A right internal jugular central venous infusion port is unchanged in position. The cardiomediastinal silhouette is largely obscured. Emphysema is similar to previous. Near-complete opacification of the left hemithorax is unchanged, consistent with pleural e ffusion and known mass lesion. The right lung appears clear. A left-sided chest tube is unchanged in position. No pneumothorax is seen. The skeletal structures appear osteopenic. The bony thorax is sameer sly intact. IMPRESSION: 1. There is opacification of the left hemithorax is unchanged, consistent with pleural effusion and n o new mass lesion. 2. A left-sided chest tube is unchanged in position. 3. The right lung appears clear. ACT 112: Negative or not required by law. Electronically signed by: Bernard Stanton M.D. 07/20/2022 2:41 PM
--- NOTE | 2022-07-20 15:58 | Palliative Care Progress Note ---
Date of Service July 20, 2022 Assessment & Plan (1) Palliative care encounter: (2) Cancer related pain: Plan: Pain control is better with the addition of a continuous opioid infusion. Patient would like to transition to a method of pain relief that is not reliant on an infusion pump. He has been receiving morphine IV 0.5 mg/h and a continuous rate was not used any boluses. This is a total of approximately 12 mg of morphine IV per day. I will transition him to a transdermal fentanyl patch of 12 mcg/h every 72 hours and for now, we will continue bolus CHEMISTRY TUTOR dose only of 1 mg IV q. 20 minutes as needed. I advised him and his family that the transdermal fentanyl patch will take approximately 12 to 18 hours to come up to effect. Therefore I will stop his continuous rate morphine when the fentanyl patch is applied. Simultaneously, he will be able to use the as needed dosing as needed. If he is feeling an acceptable amount of relief tomorrow, we will transition him off the CHEMISTRY TUTOR and begin using oral morphine for breakthrough pain and dyspnea. Dosing will be determined at that time. I have updated the primary team. I have written the orders. (3) Dyspnea and respiratory abnormalities: Plan: See above changes to CHEMISTRY TUTOR (4) Empyema of left pleural space: Plan: Managed by primary team, chest tube in place (5) Weakness generalized: (6) Encounter for end of life education, guidance and counseling: Plan: * Patient asked what it would entail to her and stated of going to an inpatient hospice facility, go home with hospice. Reviewed that he would need a caregiver that is with him or accessible to him around the clock in accordance with hospice requirements. He does not have any kind of support of this nature. We rediscussed the inpatient hospice facility and he reaffirmed this as his choice. Family provided additional support to patient, adding that they believe it is the safest place for him to be for his symptom management especially since he will have staff readily available [id number] for any urgent needs. * Patient's son asked several good questions about what to expect at this point, the transitions they may expect to see as a family and what symptoms patient may exhibit. We had a 25-minute discussion at the bedside about advanced illness progression, and dying symptom progression: we discussed changes pt may move through in the dying process including but not limited to sleeping more, disorientation when awake, restlessness, diminished senses/inability to respond to stimulus although ability to be aware of them remains intact longer, changes in body temperatures, skin changes/mottling/cyanosis, respiratory pattern changes, oral secretions. Family verbalized understanding. The goal is to assure a peaceful . * Patient has been able to reconcile with his family. He appears to be more at peace and was smiling more often through today's visit. His family indicates their intention is to remain supportive of him through this journey. They are honest that they do not have the capacity to provide [id number] caregiver support for him in a home hospice setting. * Patient's son asked additional questions about psychological support/emotional reconciliation in an end-of-life process. We discussed that patients who came to positive life closure, are generally not afraid to say these four important phrases to those they loved:'Please forgive me,' 'I forgive you,' 'Thank you,' and 'I love you.'It is that simple BUT not always as easy. I encouraged the mall to take some individual time to sit the patient and stated things they need to say to each other patient I encourage patient to use those individual times also for himself for any additional guilt or anxiety he may be caring around so that that additional emotional burden does not add to his suffering at this time. Family was extremely appreciative of this conversation as was the patient. They feel that this is a reasonable and manageable approach for them to utilize to help bring everyone some closure in a peaceful resolution. Mere Villatoro DNP Clinical Director, Palliative Medicine (7) Social isolation: Plan see above Admission and Anticipated Discharge Date Admission Date: July 18, 2022 Subjective Ongoing pain and cancer related symptom management. Patient was moved to a morphine CHEMISTRY TUTOR yesterday at 0.5 mg/h continuous with a 1 mg q. 20-minute bolus. He has not used any boluses. Reports feeling significant improvement in his pain and shortness of breath but would like to see if he can transition off the CHEMISTRY TUTOR to an easier modality. His family is at the bedside visiting today: Son, sister, and a niece. Patient reports appetite is okay. He was able to tolerate a little bit more taking p.o. today as well as conversation is easier with the addition of a steady opioid. He still has a deep and bronchitic cough. His chest tube is in and draining purulent ivey. He denies any other acute symptoms. He is not nauseous, denies vomiting, diarrhea or constipation. Review of Systems Review of Systems: All systems reviewed & are unremarkable except as noted in Subjective Physical Exam Physical Exam: He is resting in bed, sitting upright at near 90 degrees. Chest tube on the left is draining a purulent material. He is able to speak a few sentences at a time today without needing to stop and catch his breath when compared to yesterday's 3-4 word sentences. His cheeks are slightly flushed but he is alert, awake and interactive with his family. Lung sounds are remarkably diminished. Left side far greater than right side. There is no appreciable wheeze at this time. His neck is supple and I do not appreciate any thyromegaly or stridor. There are some anterior adenopathy. Anterior chest wall is not tender to palpation. His trachea remains slightly deviated. Abdomen is soft and nontender with bowel sounds throughout. There is no rebound or guarding noted. His strength is diminished overall but equal bilaterally. There are some mild clubbing to his nails noted. He is not cyanotic. There is no mottling to his lower extremities. Skin is pale with flushed facies but otherwise warm to touch. There is some trace edema to bilateral lower extremities. He is awake alert and oriented x3. Mood is subdued but pleasant and he is cooperative with this exam. Results & Data ([facility]) Vital Signs (Past 12 Hours) Vital Signs Temp Pulse Resp BP Pulse Ox O2 Del Method O2 Flow Rate 07/20/22 14:48 104 H 22 93 Nasal Cannula 4 07/20/22 10:40 104 H 20 95 Nasal Cannula 5 07/20/22 10:22 Nasal Cannula 6 07/20/22 07:26 36.4 C L 96 H 18 125/78 95 Nasal Cannula 07/20/22 07:12 94 H 24 96 Nasal Cannula 6 07/20/22 05:04 36.5 C 94 H 22 134/78 94 Nasal Cannula 6 Laboratory Results labs and imaging reviewed. PG Care Time/CCT Total # of Minutes Spent Total Time Spent: 60 Total Time Spent with Patient: Total time spent is greater than 50% in coordination of care (as documented) at patient's floor/unit and/or counseling patient: Prolonged Care Time Prolonged Care Time: Yes Total Prolonged Care Time: 30 Coding Level of Care Code Established Pt ADVNCD CARE PLAN 30 MIN Patient Type Established History Detailed Exam Detailed Medical Decision Making High Complexity Diagnoses Palliative care encounter Z51.5 Cancer related pain G89.3 Dyspnea and respiratory abnormalities R06.00; R06.89 Empyema of left pleural space J86.9 Weakness generalized R53.1 Encounter for end of life education, guidance and counseling Social isolation Z60.4 Additional Codes Prolonged Care Time - Prolonged Care Time: Yes ([id number])
[2022-07-20] MEDS ORDERED: fentaNYL 12 MCG/HR TDSY TD SCH (17:15)
[2022-07-20] MEDS: SODIUM CHLORIDE 0.9% 1000ML 1,000 ML IV SCH (17:25)
[2022-07-20] MEDS: CHECK fentaNYL PATCH PLACEMENT SCH (17:25)
[2022-07-20] MEDS: AZITHROMYCIN 500 MG in DEXTROSE 5% 250 ML IV SCH (20:27)
[2022-07-21] MEDS: DORNASE ALFA 5 ML in SYRINGE 25 ML IPL SCH ×2 (00:42→15:08)
[2022-07-21] MEDS: methylPREDNISolone 40 MG in SYRINGE 0 ML IV SCH ×4 (01:13→18:38)
[2022-07-21] MEDS: CHECK fentaNYL PATCH PLACEMENT SCH ×3 (01:14→16:19)
[2022-07-21] MEDS: PIPERACILLIN/TAZOBACTAM 4.5 GM in DEXTROSE 5% 100 ML IV SCH (05:36)
[2022-07-21 06:32] LABS: Hematocrit (blood only) 30.6 % (40.1-51.0); Hemoglobin 10.7 g/dl (14.0-18.0); Mean Corpuscular Hemoglobin 29.1 pg (25.0-34.0); Mean Corpuscular Volume 83.2 fL (80.0-100.0); Mean Platelet Volume 9.9 fL (9.4-12.4); Nucleated RBC # (auto) 0.02 K/uL (0-0); Nucleated RBC % (auto) 0.1 %; Platelet Count 702 K/uL (130-400); RDW Coefficient of Variation 15.6 % (11.5-14.5); RDW Standard Deviation 46.1 fL (36.4-46.3); Red Blood Count 3.68 M/uL (4.63-6.08); White Blood Count 20.51 K/ul (4.8-10.8)
[2022-07-21 06:42] LABS: Albumin Globulin Ratio 0.8 (0.9-2); Albumin Level 2.8 gm/dl (3.4-5.0); BUN Creatinine Ratio 47.4 (10-20); Bilirubin,Total 0.4 mg/dl (0.2-1.0); Calcium 9.9 mg/dl (8.5-10.1); Creatinine Clr Calc Pharmacy 144.1 ml/min; Est GFR (African American) 130.3 ml/min; Est GFR (Non-African American) 112.4 ml/min; Globulin 3.6 gm/dl (2.5-4.0); Magnesium 1.5 mg/dl (1.7-2.4); Phosphorus 1.6 mg/dl (2.5-4.9); Total Protein 6.4 gm/dl (6.0-8.3); Uric Acid 2.3 mg/dl (2.6-7.2)
[2022-07-21] MEDS: ALBUT/IPRATROP 3MG/0.5MG NEB 3 ML VIAL NEB SCH ×4 (07:00→19:06)
[2022-07-21 07:01] LABS: Basophils # (auto) 0.03 K/uL (0-0.2); Basophils % (auto) 0.1 %; Immature Granulocytes # (auto) 0.27 K/uL (0.00-0.02); Immature Granulocytes % (auto) 1.3 %; Lymphocytes # (auto) 0.65 K/uL (1.2-3.4); Lymphocytes % (auto) 3.2 %; Monocytes # (auto) 0.66 K/uL (0.24-0.82); Monocytes % (auto) 3.2 %; Neutrophils % (auto) 92.2 %; Target Cells 1+
[2022-07-21] MEDS: guaiFENesin 600 MG TABCR PO SCH ×2 (07:55→21:20)
[2022-07-21] MEDS: PANTOprazole 40 MG TAB PO SCH (07:55)
[2022-07-21] MEDS: allopurinoL 300 MG TAB PO SCH (07:55)
--- NOTE | 2022-07-21 10:17 | Pulmonology Progress Note ---
Date of Service July 21, 2022 Assessment & Plan (1) Empyema lung: (2) Small cell lung cancer: (3) Metastatic cancer: Plan 57-year-old male with metastatic small cell lung cancer presenting with large left empyema. Gram-negative rods growing from the sputum and pleural fluid. Continue broad- spectrum antibiotics. Continue MIST2 protocol. Continue chest tube drainage. Pulm consult will continue to follow. Palliative care managing chronic pain issues. Admission and Anticipated Discharge Date Admission Date: July 18, 2022 Subjective Patient seen and examined. Continues to have mild shortness of breath when resting. Chest tube draining purulent fluid. Over 2 L of fluid drained since chest tube insertion. About 400 cc out overnight. Review of Systems Review of Systems: All systems reviewed & are unremarkable except as noted in HPI & below Physical Exam Physical Exam: Constitutional: Thin and frail appearing male in moderate distress. Eyes: Pupils are equal round and reactive to light. Conjunctivae are normal. Anicteric sclera. Ears nose, mouth and throat: Deferred. Neck: Trachea is midline. Visual inspection is normal. Respiratory: Diminished on the left with coarse rhonchi bilaterally. Coughing frequently. Left chest tube in place and secure. Cardiovascular: Regular rate and rhythm. No murmurs. No edema. Gastrointestinal: Normal bowel sounds, soft, nontender and nondistended. No hepatosplenomegaly noted. Musculoskeletal: No cyanosis. Patient is able to move all extremities. Strength is 5 out of 5 in the upper and lower extremities. Skin: No rashes, warm dry and intact. Neurologic: No obvious focal neurological deficits seen. Psychiatric: Alert and oriented x3 with a euthymic affect. Results & Data Results & Data ([facility]) Vital Signs (Past 12 Hours) Vital Signs Temp Pulse Pulse Resp BP Pulse Ox O2 Del Method 07/21/22 07:59 107 H 18 95 Nasal Cannula 07/21/22 04:04 36.3 C L 99 H 18 148/94 H 94 Nasal Cannula 07/20/22 23:55 100 H 07/20/22 23:49 36.4 C L 103 H 18 149/90 H 93 Nasal Cannula O2 Flow Rate 07/21/22 07:59 4 07/21/22 04:04 6 07/20/22 23:55 07/20/22 23:49 6 PG Care Time/CCT Total # of Minutes Spent Total Time Spent with Patient: Total time spent is greater than 50% in coordination of care (as documented) at patient's floor/unit and/or counseling patient: Coding Level of Care Code 15878 Subseq Hosp Care Lvl 3 Diagnoses Empyema lung J86.9 Small cell lung cancer C34.90 Metastatic cancer C79.9
--- NOTE | 2022-07-21 12:11 | XRay Report ---
XR chest 1V portable HISTORY: Evaluate Chest tube ? MIST 2 protocol COMPARISON: Chest 07/20/2022. FINDINGS: A left basilar chest tube remains unchanged in position. A right Port-A-Cath terminates at the SVC. Hazy appearance to the left hemithorax with associated volume loss remains unchanged. This l ikely corresponds the patient's known large mediastinal/lung mass. No definite pneumothorax. The righ t lung is essentially clear. The heart is stable in size. A small left pleural effusion persists. IMPRESSION: 1. No change in the left basilar chest tube and small left pleural effusion. No pneumothorax. 2. Hazy appearance to left hemithorax persists and likely corresponds the patient's known large left mediastinal/lung mass. ACT 112: Negative or not required by law. Electronically signed by: Rodrigue Boyd M.D. 07/21/2022 12:10 PM
[2022-07-21] MEDS: ALTEPLASE, RECOMBINANT 10 MG in SYRINGE 50 ML IPL SCH ×2 (12:21→22:52)
--- NOTE | 2022-07-21 12:35 | Palliative Care Progress Note ---
Date of Service July 21, 2022 Assessment & Plan (1) Palliative care encounter: Plan: * short counseling session with pt and son. they are emotionally doing better, creating more peace between them. * placement underway with [facility], please see their notes for more details. Unfortunately, there are no inpatient hospice house options in this region so pt will need to be dc to SNF with comfort care, per [facility]< SNF will submit medicaid application. I would suggest asking if he can have Hospice care added to his SNF admission through whichever hospice agency is partnered with the SNF he is going to be discharged to when ready. (2) Cancer related pain: Plan: * noted above, pt has uncontrolled, persisting cancerrelated dyspnea and pain. He notes this is sharper with chest tube tx (alteplase). The current prn dose is not helping. * I will increase morphine harpooner bolus to 2mg q20min, max 6mg per hour. NO CONTINUOUS RATE * I will increase TDF to 25mcg/hr, pt states a clear preference to have better l ramos acting medication mgt versus taking frequent PRN meds, which he states "makes me nervous." * reviewed with nursing, orders written. (3) Dyspnea and respiratory abnormalities: Plan: as noted above with CISO changes (4) Weakness generalized: (5) Acute respiratory failure with hypoxia: (6) Empyema of left pleural space: (7) Small cell lung cancer: (8) Metastatic non-small cell lung cancer: Plan I spent 60 minutes overall addressing this case: 5 in medical data review/discussion with referring provider(s) and/or preparation for the visit 30 in direct interaction with the patient and son 10 Advance Care Planning/Goals of Care discussions as detailed above in note (must be >16min) 13 in subsequent review and synthesis of assessment and plan 12 in communicating with other providers regarding the patient's case: updated nursing and primary teams, orders written. Mere Villatoro DNP Clinical Director, Palliative Medicine Admission and Anticipated Discharge Date Admission Date: July 18, 2022 Subjective patient seen with son at bedside. he is awake and alert but reports a fair amount of pain and tells me the 1mg prn IV MS dose has not helped at all. He is also reluctant to use it, and would prefer a better dose of long acting. he asks if the long acting TDF can be adjusted as well. he will have another alteplase tx for the chest tube today. he is not feeling n/v/d/c he has a persistent, tight bronchitic cough, still with hick/purulent appearing ivey sputum. he is able to speak in jalloh sentences and can change positions from lying to seated at edge of bed with minimal assist. Review of Systems Review of Systems: All systems reviewed & are unremarkable except as noted in Subjective Physical Exam Physical Exam: Constitutional: Thin and frail appearing male in moderate distress. Eyes: Pupils are equal round and reactive to light. Conjunctivae are normal. Anicteric sclera. Ears nose, mouth and throat: Deferred. Neck: Trachea is midline. Visual inspection is normal. Respiratory: Diminished on the left with coarse rhonchi bilaterally. Coughing frequently. Left chest tube in place and secure. Cardiovascular: Regular rate and rhythm. No murmurs. No edema. Gastrointestinal: Normal bowel sounds, soft, nontender and nondistended. No hepatosplenomegaly noted. Musculoskeletal: No cyanosis. Patient is able to move all extremities. Strength is 5 out of 5 in the upper and lower extremities. Skin: No rashes, warm dry and intact. Neurologic: No obvious focal neurological deficits seen. Psychiatric: Alert and oriented x3 with a euthymic affect. Results & Data ([facility]) Vital Signs (Past 12 Hours) Vital Signs Temp Pulse Resp BP Pulse Ox O2 Del Method O2 Flow Rate 07/21/22 12:01 108 H 18 95 Nasal Cannula 4 07/21/22 11:45 Nasal Cannula 6 07/21/22 07:59 107 H 18 95 Nasal Cannula 4 07/21/22 04:04 36.3 C L 99 H 18 148/94 H 94 Nasal Cannula 6 PG Care Time/CCT Total # of Minutes Spent Total Time Spent: 65 Total Time Spent with Patient: Total time spent is greater than 50% in coordination of care (as documented) at patient's floor/unit and/or counseling patient: Coding [place] [address] Subseq Hosp Care Lvl 3 Patient Type Established History Expanded Problem Focused Exam Detailed Medical Decision Making High Complexity Diagnoses Palliative care encounter Z51.5 Cancer related pain G89.3 Dyspnea and respiratory abnormalities R06.00; R06.89 Weakness generalized R53.1 Acute respiratory failure with hypoxia J96.01 Empyema of left pleural space J86.9 Small cell lung cancer C34.90 Metastatic non-small cell lung cancer C34.90
[2022-07-21] MEDS: MoRPHine SULFATE PCA 30 MG/30 ML IV PRN (12:37)
[2022-07-21] MEDS: fentaNYL 25 MCG/HR TDSY TD SCH (13:07)
[2022-07-21] MEDS: AMPICILLIN/SULBACTAM SOD 3,000 MG in 0.9 % SODIUM CHLORIDE 100 ML IV SCH ×2 (15:08→20:21)
[2022-07-21] MEDS: SODIUM CHLORIDE 0.9% 1000ML 1,000 ML IV SCH (16:19)
--- NOTE | 2022-07-21 17:42 | Hospitalist Progress Note ---
Date of Service July 21, 2022 Assessment & Plan (1) Acute respiratory failure with hypoxia: Plan: Treat underlying pneumonia and malignancy. Left chest tube in place now after thoracentesis. Supplemental oxygen to maintain saturation greater than 90%. (2) Metastatic cancer: Plan: Metastatic small cell lung cancer. Oncology consultation appreciated. The patient has opted for hospice care. Palliative care consultation appreciated . (3) Small cell lung cancer: Plan: As above (4) Postobstructive pneumonia: Plan: Currently on Zosyn and azithromycin, day 3. Gram-negative's isolated in the empyema fluid. MRSA nasal swab negative (5) Pleural effusion, left: Plan: Pulmonary medicine consultation appreciated. Left thoracentesis completed on July 19 with placement of left chest tube. This appears to be an empyema. Gram-negative's isolated. tPA instillation today, July 20. Serial chest x- ray. (6) History of pulmonary embolism: Plan: Treated with Eliquis. (7) COPD (chronic obstructive pulmonary disease): Plan: Acute exacerbation due to malignancy and suspected associated postobstructive pneumonia. Parenteral steroids, intravenous antibiotics, scheduled DuoNebs. Pulmonary medicine consultation appreciated (8) Coronary artery disease: Plan: s/p three coronary artery stents. Telemetry. Medical management (9) Heartburn: Plan: Continue pantoprazole 40mg PO daily (10) Metastatic non-small cell lung cancer: Plan: Prior treatment with GammaKnife surgery and Keytruda. (11) Empyema of left pleural space: Plan: Gram-negative's isolated. Currently on Zosyn and azithromycin. tPA infused through the left chest tube today per pulmonary medicine. Plan VTE Prophylaxis -start Lovenox after pulmonary procedures Disposition -eventual placement with hospice Admission and Anticipated Discharge Date Admission Date: July 18, 2022 Subjective pt awake and alert but reports a fair amount of pain as monitored by palliative care. Denies significant nausea or vomiting Patient reports cough with some expectoration Review of Systems Review of Systems: Constitutional-no fever or chills. Chronically ill- appearing ENT-no blurred vision, no double vision, no epistaxis, no sore throat Respiratory-nonproductive cough. Wheezing. Shortness of breath Cardiac-no palpitations, no chest pain, no syncope GI-no nausea, vomiting, diarrhea, melena, hematochezia -no urinary retention, no urinary incontinence, no dysuria, no hematuria Physical Exam Physical Exam: Heart ; S1-S2 heard normally no S3 Lungs bilateral air entry slightly diminished at bases chest tube noted Abdomen soft no rebound tenderness Neuro no focal deficits Results & Data Results & Data ([facility]) Vital Signs (Past 12 Hours) Vital Signs Temp Pulse Resp BP Pulse Ox O2 Del Method O2 Flow Rate 07/21/22 14:52 106 H 18 95 Nasal Cannula 4 07/21/22 12:00 36.5 C 89 20 139/71 97 07/21/22 12:01 108 H 18 95 Nasal Cannula 4 07/21/22 11:45 Nasal Cannula 6 07/21/22 07:59 107 H 18 95 Nasal Cannula 4 PG Care Time/CCT Total # of Minutes Spent Total Time Spent with Patient: Total time spent is greater than 50% in coordination of care (as documented) at patient's floor/unit and/or counseling patient: Coding Level of Care Code None Diagnoses Acute respiratory failure with hypoxia J96.01 Metastatic cancer C79.9 Small cell lung cancer C34.90 Postobstructive pneumonia J18.9 Pleural effusion, left J90 History of pulmonary embolism Z86.711 COPD (chronic obstructive pulmonary disease) J44.9 Coronary artery disease I25.10 Heartburn R12 Metastatic non-small cell lung cancer C34.90 Empyema of left pleural space J86.9
[2022-07-22] MEDS: DORNASE ALFA 5 ML in SYRINGE 25 ML IPL SCH ×3 (00:09→22:21)
[2022-07-22] MEDS: CHECK fentaNYL PATCH PLACEMENT SCH ×3 (00:09→15:53)
[2022-07-22] MEDS: methylPREDNISolone 40 MG in SYRINGE 0 ML IV SCH ×4 (00:10→17:28)
[2022-07-22] MEDS: AMPICILLIN/SULBACTAM SOD 3,000 MG in 0.9 % SODIUM CHLORIDE 100 ML IV SCH ×4 (01:29→21:18)
[2022-07-22 06:23] LABS: Hematocrit (blood only) 31.3 % (40.1-51.0); Hemoglobin 10.9 g/dl (14.0-18.0); Mean Corpuscular Hemoglobin 29.1 pg (25.0-34.0); Mean Corpuscular Hgb Conc 34.8 g/dL (32.0-36.0); Mean Corpuscular Volume 83.5 fL (80.0-100.0); Mean Platelet Volume 9.9 fL (9.4-12.4); Nucleated RBC # (auto) 0.02 K/uL (0-0); Nucleated RBC % (auto) 0.1 %; Platelet Count 653 K/uL (130-400); RDW Coefficient of Variation 15.9 % (11.5-14.5); RDW Standard Deviation 48.8 fL (36.4-46.3); Red Blood Count 3.75 M/uL (4.63-6.08); White Blood Count 24.23 K/ul (4.8-10.8)
[2022-07-22] MEDS: ALBUT/IPRATROP 3MG/0.5MG NEB 3 ML VIAL NEB SCH ×4 (07:12→19:34)
[2022-07-22 07:15] LABS: Albumin Globulin Ratio 0.8 (0.9-2); Albumin Level 2.6 gm/dl (3.4-5.0); BUN Creatinine Ratio 38.2 (10-20); Bilirubin,Total 0.5 mg/dl (0.2-1.0); Calcium 9.8 mg/dl (8.5-10.1); Creatinine Clr Calc Pharmacy 149.3 ml/min; Est GFR (African American) 132.2 ml/min; Est GFR (Non-African American) 114.1 ml/min; Globulin 3.4 gm/dl (2.5-4.0); Magnesium 1.3 mg/dl (1.7-2.4); Potassium 4.4 mmol/L (3.5-5.1); Uric Acid 2.6 mg/dl (2.6-7.2)
[2022-07-22 07:45] LABS: Basophils # (auto) 0.05 K/uL (0-0.2); Basophils % (auto) 0.2 %; Immature Granulocytes # (auto) 0.42 K/uL (0.00-0.02); Immature Granulocytes % (auto) 1.7 %; Lymphocytes # (auto) 0.52 K/uL (1.2-3.4); Lymphocytes % (auto) 2.1 %; Monocytes # (auto) 1.39 K/uL (0.24-0.82); Monocytes % (auto) 5.7 %; Neutrophils # (auto) 21.85 K/uL (1.4-6.5); Neutrophils % (auto) 90.3 %; Target Cells 1+
[2022-07-22] MEDS: allopurinoL 300 MG TAB PO SCH (08:48)
[2022-07-22] MEDS: PANTOprazole 40 MG TAB PO SCH (08:48)
[2022-07-22] MEDS: guaiFENesin 600 MG TABCR PO SCH ×2 (08:48→21:19)
--- NOTE | 2022-07-22 09:56 | Pulmonology Progress Note ---
Date of Service July 22, 2022 Assessment & Plan (1) Empyema lung: (2) Small cell lung cancer: (3) Metastatic cancer: Plan Impression: 57-year-old male with metastatic small cell lung cancer presenting with large left empyema. He is status post pigtail drainage and is currently undergoing mist 2 protocol. Recommendations: 1. Empyema: Continue drainage until output from the chest tube is less than 100 200 cc per 24-hour period of time. Completed mist 2 protocol. Given the difficulty interpreting the patient's chest x-ray, it may be reasonable to proceed with a noncontrast CT of the chest prior to discontinuation of the tube to ensure that the pleural fluid collections have been adequately drained. Patient's not a candidate for video-assisted thoracoscopic decortication given his underlying malignancy and desires to pursue palliative care. He is currently receiving Unasyn which should be adequate. Transitioning to oral Augmentin would be a reasonable approach with plans to complete 14 to 21 days of antimicrobial therapy 2. COPD. Difficulty clearing secretions. We will pursue a trial of hypertonic saline as well as flutter valve. He does not appear overtly bronchospastic currently not sure that steroids are warranted currently. 3. Continue supplemental oxygen titrated to keep saturations at or above 88% We will continue to follow. Feel free to contact us with questions or concerns Admission and Anticipated Discharge Date Admission Date: July 18, 2022 Subjective Patient seen and examined. EMR reviewed. Discussed with prior senior network architect. Patient is doing reasonably well. He is not complaining of any breathing difficulties. He is having difficulty clearing some phlegm. He feels congested in the back of his throat and is unable to expectorate the phlegm. He is not having any pain issues. He definitely feels better than when we initiated therapy Review of Systems Review of Systems: All systems reviewed & are unremarkable except as noted in Subjective Physical Exam Physical Exam: Constitutional: Thin and frail appearing male in moderate distress. Eyes: Pupils are equal round and reactive to light. Conjunctivae are normal. Anicteric sclera. Ears nose, mouth and throat: Deferred. Neck: Trachea is midline. Visual inspection is normal. Respiratory: Diminished on the left with coarse rhonchi bilaterally. Coughing frequently. Left chest tube in place and secure. Cardiovascular: Regular rate and rhythm. No murmurs. No edema. Gastrointestinal: Normal bowel sounds, soft, nontender and nondistended. No hepatosplenomegaly noted. Musculoskeletal: No cyanosis. Patient is able to move all extremities. Strength is 5 out of 5 in the upper and lower extremities. Skin: No rashes, warm dry and intact. Neurologic: No obvious focal neurological deficits seen. Psychiatric: Alert and oriented x3 with a euthymic affect. Results & Data Results & Data ([facility]) Vital Signs (Past 12 Hours) Vital Signs Temp Pulse Pulse Resp BP Pulse Ox O2 Del Method 07/22/22 07:43 110 H 20 97 Nasal Cannula 07/22/22 07:34 36.9 C 111 H 22 132/78 92 Nasal Cannula 07/22/22 03:33 36.6 C 103 H 18 119/73 93 Nasal Cannula 07/21/22 23:05 36.6 C 103 H 18 119/73 93 Nasal Cannula 07/21/22 22:45 112 H O2 Flow Rate 07/22/22 07:43 5 07/22/22 07:34 4 07/22/22 03:33 4.5 07/21/22 23:05 4.5 07/21/22 22:45 Chest tube output: 500 cc last 24 hours Laboratory Results 07/22/22 05:21 07/22/22 05:21 Respiratory cultures growing pansensitive E. coli from pleural fluid and sputum PG Care Time/CCT Total # of Minutes Spent Total Time Spent with Patient: Total time spent is greater than 50% in coordination of care (as documented) at patient's floor/unit and/or counseling patient: Coding Level of Care Code 29247 Subseq Hosp Care Lvl 2 Diagnoses Empyema lung J86.9 Small cell lung cancer C34.90 Metastatic cancer C79.9
[2022-07-22] MEDS: ALTEPLASE, RECOMBINANT 10 MG in SYRINGE 50 ML IPL SCH ×2 (12:04→22:21)
--- NOTE | 2022-07-22 14:56 | XRay Report ---
XR chest 1V portable CLINICAL HISTORY: Chest tube ? MIST 2 protocol TECHNIQUE: Single frontal radiograph of the chest was obtained. Comparison: Comparison is made to chest radiograph 07/21/2022 left mediastinal/lung mass. An CT chest 07/18/2022 FINDINGS: A port catheter is seen. Left basilar chest tube is unchanged. The cardiomediastinal silhouette is ob scured. Small left pleural effusion, stable to minimally enlarged from prior exam. No pneumothorax is seen. Haziness in the left hemithorax is again seen compatible with known mediastinal/lung mass. IMPRESSION: 1. Interval stability to minimal enlargement of previously noted left pleural effusion. 2. Redemonstration of mediastinal/lung mass on the left. ACT 112: Negative or not required by law. Electronically signed by: Jaiden Trent M.D. 07/22/2022 2:55 PM
--- NOTE | 2022-07-22 16:20 | Hospitalist Progress Note ---
Date of Service July 22, 2022 Assessment & Plan (1) Acute respiratory failure with hypoxia: Plan: Patient small cell lung cancer presents with empyema patient status post pigtail drainage As per pulmonary recommendation we will continue drainage through the chest tube Patient not a candidate for VATS assisted decortication given his malignancy Continue antibiotic therapy with Unasyn (2) Metastatic cancer: Plan: Metastatic small cell lung cancer. Oncology consultation appreciated. The patient has opted for hospice care. Palliative care consultation appreciated . (3) Small cell lung cancer: Plan: As above (4) Postobstructive pneumonia: Plan: Currently on Zosyn and azithromycin, day 3. Gram-negative's isolated in the empyema fluid. MRSA nasal swab negative (5) Pleural effusion, left: Plan: Pulmonary medicine consultation appreciated. Left thoracentesis completed on July 19 with placement of left chest tube. This appears to be an empyema. Gram-negative's isolated. tPA instillation today, July 20. Serial chest x- ray. (6) History of pulmonary embolism: Plan: Treated with Eliquis. (7) COPD (chronic obstructive pulmonary disease): Plan: Acute exacerbation due to malignancy and suspected associated postobstructive pneumonia. Parenteral steroids, intravenous antibiotics, scheduled DuoNebs. Pulmonary medicine consultation appreciated (8) Coronary artery disease: Plan: s/p three coronary artery stents. Telemetry. Medical management (9) Heartburn: Plan: Continue pantoprazole 40mg PO daily (10) Metastatic non-small cell lung cancer: Plan: Prior treatment with GammaKnife surgery and Keytruda. (11) Empyema of left pleural space: Plan: Gram-negative's isolated. Currently on Zosyn and azithromycin. tPA infused through the left chest tube today per pulmonary medicine. Plan VTE Prophylaxis -start Lovenox after pulmonary procedures Disposition -eventual placement with hospice Admission and Anticipated Discharge Date Admission Date: July 18, 2022 Subjective Patient has some discomfort in his throat secondary to congestion and has some difficulty clearing his phlegm Otherwise no chest pain reported no acute change in his breathing effort Review of Systems Review of Systems: Constitutional-no fever or chills. Chronically ill- appearing ENT-no blurred vision, no double vision, no epistaxis, no sore throat Respiratory-nonproductive cough. Wheezing. Shortness of breath Cardiac-no palpitations, no chest pain, no syncope GI-no nausea, vomiting, diarrhea, melena, hematochezia -no urinary retention, no urinary incontinence, no dysuria Physical Exam Physical Exam: Neck shows no JVD Heart ; S1-S2 heard normally no S3 Lungs bilateral air entry slightly diminished at bases chest tube noted And is draining Abdomen soft no rebound tenderness Neuro no focal deficits Results & Data Results & Data ([facility]) Vital Signs (Past 12 Hours) Vital Signs Temp Pulse Pulse Resp BP Pulse Ox O2 Del Method 07/22/22 14:27 103 H 07/22/22 15:18 36.6 C 101 H 20 111/69 91 Nebulizer 07/22/22 11:57 36.4 C L 110 H 19 112/75 94 Nasal Cannula 07/22/22 06:16 128 H 07/22/22 11:01 108 H 22 94 Nasal Cannula 07/22/22 08:00 Nasal Cannula 07/22/22 07:43 110 H 20 97 Nasal Cannula 07/22/22 07:34 36.9 C 111 H 22 132/78 92 Nasal Cannula O2 Flow Rate 07/22/22 14:27 07/22/22 15:18 07/22/22 11:57 3 07/22/22 06:16 07/22/22 11:01 4 07/22/22 08:00 4 07/22/22 07:43 5 07/22/22 07:34 4 PG Care Time/CCT Total # of Minutes Spent Total Time Spent with Patient: Total time spent is greater than 50% in coordination of care (as documented) at patient's floor/unit and/or counseling patient: Coding Level of Care Code None Diagnoses Acute respiratory failure with hypoxia J96.01 Metastatic cancer C79.9 Small cell lung cancer C34.90 Postobstructive pneumonia J18.9 Pleural effusion, left J90 History of pulmonary embolism Z86.711 COPD (chronic obstructive pulmonary disease) J44.9 Coronary artery disease I25.10 Heartburn R12 Metastatic non-small cell lung cancer C34.90 Empyema of left pleural space J86.9
[2022-07-22] MEDS: SODIUM CHLOR 7% 4 ML NEB NEB SCH (19:34)
[2022-07-22] MEDS: MoRPHine SULFATE PCA 30 MG/30 ML IV PRN (22:43)
[2022-07-23] MEDS: AMPICILLIN/SULBACTAM SOD 3,000 MG in 0.9 % SODIUM CHLORIDE 100 ML IV SCH ×4 (01:35→19:58)
[2022-07-23] MEDS: methylPREDNISolone 40 MG in SYRINGE 0 ML IV SCH ×2 (01:35→05:12)
[2022-07-23] MEDS: CHECK fentaNYL PATCH PLACEMENT SCH ×4 (02:32→23:06)
[2022-07-23] MEDS: SODIUM CHLORIDE 0.9% 1000ML 1,000 ML IV SCH ×2 (04:47→16:59)
[2022-07-23] MEDS: SODIUM CHLOR 7% 4 ML NEB NEB SCH ×2 (07:05→19:49)
[2022-07-23] MEDS: ALBUT/IPRATROP 3MG/0.5MG NEB 3 ML VIAL NEB SCH ×4 (07:05→19:49)
[2022-07-23 07:11] LABS: Hematocrit (blood only) 30.2 % (40.1-51.0); Hemoglobin 10.5 g/dl (14.0-18.0); Mean Corpuscular Hemoglobin 29.2 pg (25.0-34.0); Mean Corpuscular Hgb Conc 34.8 g/dL (32.0-36.0); Mean Corpuscular Volume 83.9 fL (80.0-100.0); Mean Platelet Volume 10.1 fL (9.4-12.4); Nucleated RBC # (auto) 0.02 K/uL (0-0); Nucleated RBC % (auto) 0.1 %; Platelet Count 617 K/uL (130-400); RDW Coefficient of Variation 16.1 % (11.5-14.5); RDW Standard Deviation 48.6 fL (36.4-46.3); White Blood Count 28.39 K/ul (4.8-10.8)
[2022-07-23 07:51] LABS: BUN Creatinine Ratio 51.2 (10-20); Calcium 9.6 mg/dl (8.5-10.1); Creatinine Clr Calc Pharmacy 207.3 ml/min; Est GFR (African American) 146.3 ml/min; Est GFR (Non-African American) 126.2 ml/min; Potassium 4.6 mmol/L (3.5-5.1)
[2022-07-23 08:07] LABS: Albumin Globulin Ratio 0.8 (0.9-2); Albumin Level 2.6 gm/dl (3.4-5.0); Bilirubin,Total 0.4 mg/dl (0.2-1.0); Globulin 3.1 gm/dl (2.5-4.0); Magnesium 1.2 mg/dl (1.7-2.4); Phosphorus 1.1 mg/dl (2.5-4.9); Total Protein 5.7 gm/dl (6.0-8.3); Uric Acid 2.6 mg/dl (2.6-7.2)
--- NOTE | 2022-07-23 08:12 | Pulmonology Progress Note ---
Date of Service July 23, 2022 Assessment & Plan (1) Empyema lung: (2) Small cell lung cancer: (3) Metastatic cancer: Plan Impression: 57-year-old male with metastatic small cell lung cancer presenting with large left empyema (pansensitive E. coli). He is status post pigtail rosa inage and is currently undergoing mist 2 protocol. Recommendations: 1. Empyema: Patient output is decreasing. He is completed the mist 2 protocol. Given difficulties interpreting his chest x-ray, will order a noncontrast CT of the chest tomorrow morning to evaluate whether or not there are persistent pleural abnormalities or if the tube can be removed. Continue chest tube to suction currently. Patient's not a candidate for video-assisted thoracoscopic decortication given his underlying malignancy and desires to pursue palliative care. He is currently receiving Unasyn for pansensitive E. coli which should be adequate. Transitioning to oral Augmentin would be a reasonable approach with plans to complete 14 to 21 days of antimicrobial therapy 2. COPD. Continue flutter valve and hypertonic saline. Continue Mucinex. He does not appear overtly bronchospastic currently and do not believe that steroids are warranted currently. 3. Continue supplemental oxygen titrated to keep saturations at or above 88% We will continue to follow. Feel free to contact us with questions or concerns Admission and Anticipated Discharge Date Admission Date: July 18, 2022 Subjective Patient seen and examined. EMR reviewed. He feels that the flutter valve and hypertonic saline have been effective in improving his overall congestion and pulmonary clearance. His pain is well controlled. His breathing is stable. Chest tubes had about 160 cc of output since yesterday. His chest imaging appears unchanged but again chest radiograph unreliable secondary to underlying significant parenchymal disease. Review of Systems Review of Systems: All systems reviewed & are unremarkable except as noted in Subjective Physical Exam Physical Exam: Constitutional: Thin and frail appearing male in moderate d istress. Eyes: Pupils are equal round and reactive to light. Conjunctivae are normal. Anicteric sclera. Ears nose, mouth and throat: Deferred. Neck: Trachea is midline. Visual inspection is normal. Respiratory: Diminished on the left with coarse rhonchi bilaterally. Coughing frequently. Left chest tube in place and secure. Cardiovascular: Regular rate and rhythm. No murmurs. No edema. Gastrointestinal: Normal bowel sounds, soft, nontender and nondistended. No hepatosplenomegaly noted. Musculoskeletal: No cyanosis. Patient is able to move all extremities. Strength is 5 out of 5 in the upper and lower extremities. Skin: No rashes, warm dry and intact. Neurologic: No obvious focal neurological deficits seen. Psychiatric: Alert and oriented x3 with a euthymic affect. Results & Data Results & Data ([facility]) Vital Signs (Past 12 Hours) Vital Signs Temp Pulse Resp BP Pulse Ox O2 Del Method O2 Flow Rate 07/23/22 07:45 107 H 22 95 Nasal Cannula 3 07/23/22 07:13 36.4 C L 106 H 24 96/79 L 95 Nasal Cannula 4 07/23/22 03:16 36.6 C 106 H 18 134/77 93 Nasal Cannula 07/23/22 00:05 Nasal Cannula 07/22/22 23:17 36.7 C 104 H 19 142/86 H 93 Nasal Cannula Laboratory Results 07/23/22 06:25 07/23/22 06:25 Diagnostic Findings Chest x-ray from today was reviewed. The tube appears to be in good position. There is hazy opacification of the left hemithorax unchanged from prior. No definitive pneumothorax identified PG Care Time/CCT Total # of Minutes Spent Total Time Spent with Patient: Total time spent is greater than 50% in coordination of care (as documented) at patient's floor/unit and/or counseling patient: Coding Level of Care Code 27666 Subseq Hosp Care Lvl 2 Diagnoses Empyema lung J86.9 Small cell lung cancer C34.90 Metastatic cancer C79.9
[2022-07-23] MEDS ORDERED: SODIUM PHOSPHATE 30 MMOL in SODIUM CHLORIDE 0.9% 500 ML IV ONE (09:00)
[2022-07-23] MEDS ORDERED: Nursing to Pharmacy Communication SCH (09:15)
--- NOTE | 2022-07-23 09:20 | XRay Report ---
SINGLE VIEW CHEST CLINICAL HISTORY: Chest tube. FINDINGS: 2 AP, portable, upright chest radiographs are compared to chest x-ray dictated 07/22/2022 a nd correlated with chest CT dated 07/18/2022. A right internal jugular central venous infusion port i s unchanged in position. The cardiomediastinal silhouette is largely obscured. Emphysema is similar t o previous. Diffuse opacification of the left hemithorax is unchanged, consistent with pleural effusi on and known mass lesion. The right lung appears clear. A left-sided chest tube is unchanged in posit ion. No pneumothorax is seen. The skeletal structures appear osteopenic. The bony thorax is grossly i ntact. Subcutaneous emphysema is noted in the left chest wall. IMPRESSION: 1. Opacification of the left hemithorax is unchanged, consistent with pleural effusion and known mass lesion. 2. A left-sided chest tube is unchanged in position. 3. The right lung appears clear. ACT 112: Negative or not required by law. Electronically signed by: Bernard Stanton M.D. 07/23/2022 9:18 AM
[2022-07-23] MEDS: fentaNYL 25 MCG/HR TDSY TD SCH (09:27)
[2022-07-23] MEDS: allopurinoL 300 MG TAB PO SCH (09:28)
[2022-07-23] MEDS: guaiFENesin 600 MG TABCR PO SCH ×2 (09:28→19:58)
[2022-07-23] MEDS: PANTOprazole 40 MG TAB PO SCH (09:28)
[2022-07-23] MEDS ORDERED: fentaNYL 25 MCG/HR TDSY TD SCH (10:00)
--- NOTE | 2022-07-23 13:05 | Hospitalist Progress Note ---
Date of Service July 23, 2022 Assessment & Plan (1) Acute respiratory failure with hypoxia: Plan: Patient small cell lung cancer presents with empyema patient status post pigtail drainage As per pulmonary recommendation we will continue drainage through the chest tube Patient not a candidate for VATS assisted decortication given his malignancy Continue antibiotic therapy with Unasyn Appreciate pulmonary input and will consider switch to oral antibiotics over the next 2 to 3 days (2) Metastatic cancer: Plan: Metastatic small cell lung cancer. Oncology consultation appreciated. The patient has opted for hospice care. Palliative care consultation appreciated . (3) Small cell lung cancer: Plan: As above (4) Postobstructive pneumonia: Plan: Was on Zosyn and azithromycin, based on isolation now changed to IV Unasyn pulmonary following (5) Pleural effusion, left: Plan: Pulmonary medicine consultation appreciated. Left thoracentesis completed on July 19 with placement of left chest tube. This appears to be an empyema. Gram-negative's isolated. tPA instillation today, July 20. Serial chest x- ray. (6) History of pulmonary embolism: Plan: Treated with Eliquis. (7) COPD (chronic obstructive pulmonary disease): Plan: Acute exacerbation due to malignancy and suspected associated postobstructive pneumonia. Parenteral steroids, intravenous antibiotics, scheduled DuoNebs. Pulmonary medicine consultation appreciated (8) Coronary artery disease: Plan: s/p three coronary artery stents. Telemetry. Medical management (9) Heartburn: Plan: Continue pantoprazole 40mg PO daily (10) Metastatic non-small cell lung cancer: Plan: Prior treatment with GammaKnife surgery and Keytruda. Plan VTE Prophylaxis -start Lovenox after pulmonary procedures Disposition -eventual placement with hospice Admission and Anticipated Discharge Date Admission Date: July 18, 2022 Subjective Patient reports feeling improved with flutter valve and hypertonic saline but has some intermittent cough and postnasal drip Chest tubes had about 160 cc of output since yesterday. No chest pain reported Patient has low phosphorus secondary to poor p.o. intake replaced with IV supplementation Review of Systems Review of Systems: Constitutional-no fever or chills. Chronically ill- appearing ENT-no blurred vision, no double vision, no epistaxis, no sore throat Respiratory-nonproductive cough. Improving shortness of breath Cardiac-no palpitations, no chest pain, no syncope GI-no nausea, vomiting, diarrhea, melena, hematochezia -no urinary retention, no urinary incontinence, no dysuria Physical Exam Physical Exam: Neck shows no JVD Heart ; S1-S2 heard normally no S3 Lungs bilateral air entry slightly diminished at bases chest tube noted draining slightly decreased Abdomen soft no rebound tenderness Neuro no focal deficits Results & Data Results & Data ([facility]) Vital Signs (Past 12 Hours) Vital Signs Temp Pulse Pulse Resp BP Pulse Ox O2 Del Method 07/23/22 07:17 106 H 07/23/22 11:24 36.5 C 106 H 22 130/87 95 Nasal Cannula 07/23/22 10:55 108 H 22 93 07/23/22 08:00 Nasal Cannula 07/23/22 07:45 107 H 22 95 Nasal Cannula 07/23/22 07:13 36.4 C L 106 H 24 96/79 L 95 Nasal Cannula 07/23/22 03:16 36.6 C 106 H 18 134/77 93 Nasal Cannula O2 Flow Rate 07/23/22 07:17 07/23/22 11:24 4 07/23/22 10:55 3 07/23/22 08:00 3 07/23/22 07:45 3 07/23/22 07:13 4 07/23/22 03:16 Laboratory Results Short CBC 07/23/22 Range/Units 06:25 WBC 28.39 H (4.8-10.8) K/ul Hgb 10.5 L (14.0-18.0) g/dl Hct 30.2 L (40.1-51.0) % Plt Count 617 H (130-400) K/uL BMP 07/23/22 06:25 Sodium 137 Potassium 4.6 Chloride 100 Carbon Dioxide 32 BUN 22 Creatinine 0.43 L Glucose 127 H Calcium 9.6 Liver Function 07/23/22 Range/Units 06:25 Total Bilirubin 0.4 (0.2-1.0) mg/dl AST 54 H (13-39) U/L ALT 85 H (7-52) U/L Alkaline Phosphatase 532 H (34-104) U/L Albumin 2.6 L (3.4-5.0) gm/dl PG Care Time/CCT Total # of Minutes Spent Total Time Spent with Patient: Total time spent is greater than 50% in coordination of care (as documented) at patient's floor/unit and/or counseling patient: Coding Level of Care Code None Diagnoses Acute respiratory failure with hypoxia J96.01 Metastatic cancer C79.9 Small cell lung cancer C34.90 Postobstructive pneumonia J18.9 Pleural effusion, left J90 History of pulmonary embolism Z86.711 COPD (chronic obstructive pulmonary disease) J44.9 Coronary artery disease I25.10 Heartburn R12 Metastatic non-small cell lung cancer C34.90
[2022-07-23] MEDS ORDERED: LORazepam 0.5 MG TAB PO STA (13:39)
--- NOTE | 2022-07-23 20:29 | XRay Report ---
SINGLE VIEW CHEST CLINICAL HISTORY: Empyema. Chest tube. FINDINGS: An AP, portable, upright chest radiograph is compared to chest x-ray performed earlier the same day 07/23/2022 and correlated with chest CT dated 07/18/2022. A right internal jugular central v enous infusion port is unchanged in position. The cardiomediastinal silhouette is largely obscured. T he left-sided chest tube has been pulled back and is now located within the chest wall. Emphysema is similar to previous. Diffuse opacification of the left hemithorax has increased from earlier today, c onsistent with pleural effusion and known mass lesion. The right lung appears clear. No pneumothorax is seen. The skeletal structures appear osteopenic. The bony thorax is grossly intact. IMPRESSION: 1. The left chest tube has been pulled back and is now located within the left chest wall. 2. There is increasing opacification of the left hemithorax as compared to today's earlier examinatio n. This is consistent with pleural effusion and known mass lesion. 3. The right lung appears clear. ACT 112: Negative or not required by law. Electronically signed by: Bernard Stanton M.D. 07/23/2022 8:28 PM
[2022-07-24] MEDS: AMPICILLIN/SULBACTAM SOD 3,000 MG in 0.9 % SODIUM CHLORIDE 100 ML IV SCH ×4 (02:26→20:48)
[2022-07-24] MEDS: SODIUM CHLOR 7% 4 ML NEB NEB SCH ×2 (07:25→20:08)
[2022-07-24] MEDS: ALBUT/IPRATROP 3MG/0.5MG NEB 3 ML VIAL NEB SCH ×4 (07:25→20:01)
[2022-07-24] MEDS: CHECK fentaNYL PATCH PLACEMENT SCH ×2 (07:46→15:08)
[2022-07-24] MEDS ORDERED: LORazepam 0.5 MG TAB PO ONE (08:15)
[2022-07-24] MEDS: guaiFENesin 600 MG TABCR PO SCH ×2 (08:17→21:54)
[2022-07-24] MEDS: PANTOprazole 40 MG TAB PO SCH (08:17)
[2022-07-24] MEDS: allopurinoL 300 MG TAB PO SCH (08:17)
[2022-07-24 08:46] LABS: BUN Creatinine Ratio 70.5 (10-20); Calcium 9.3 mg/dl (8.5-10.1); Creatinine Clr Calc Pharmacy 186.6 ml/min; Est GFR (African American) 144.9 ml/min; Potassium 4.5 mmol/L (3.5-5.1)
--- NOTE | 2022-07-24 09:03 | Pulmonology Progress Note ---
Date of Service July 24, 2022 Assessment & Plan (1) Empyema lung: (2) Small cell lung cancer: (3) Metastatic cancer: Plan Impression: 57-year-old male with metastatic small cell lung cancer presenting with large left empyema (pansensitive E. coli). He is status post pigtail rosa inage and is currently undergoing mist 2 protocol. -- Empyema Left-sided, s/p mist 2 protocol Chest tube placed 07/20/2022, removed 07/23/2022 Pleural fluid culture growing E. coli pansensitive, Streptococcus intermedius Currently on Unasyn. Would recommend to continue with antibiotics for total of 21 days --Acute on chronic hypoxic respiratory failure Multifactorial Underlying history of small cell lung cancer plus left-sided pleural effusion --Small cell cancer of the lung Stage IV --COPD Continue with DuoNebs Hypertonic saline and Mucinex to help bring up the phlegm Plan: Chest x-ray from today does not show any signs of pneumothorax Left-sided haziness still persist. Continue with antibiotic. Follow-up CT chest from today Overall prognosis of the patient is poor. Palliative care approach should be considered if there is any clinical deterioration Case was discussed with Dr. Orlando Please note the above document was generated using voice recognition software. It may contain grammatical, syntax or spelling errors.Any formal questions or concerns about the content, text or information contained within the body of this dictation should be directly addressed to the provider for clarification. Admission and Anticipated Discharge Date Admission Date: July 18, 2022 Subjective Patient seen and examined at bedside. Was in respiratory distress. Case discussed with outgoing collar baster He has been using his EXHIBIT DESIGNER pump Does complain of chest pain bilaterally which has been chronic. Complaining of cough with inability to bring it up. No hemoptysis Overnight patient's chest tube came out and was showing leak which was subsequently removed. Review of Systems Review of Systems: All systems reviewed & are unremarkable except as noted in Subjective Physical Exam Physical Exam: Constitutional: No acute distress HEENT: EOMI, PERRLA Respiratory system: Decreased air entry bilaterally, more decreased on the left side, no wheeze, rhonchi, positive crackles bilaterally CVS: S1-S2 positive, no murmurs or gallops, positive Port-A-Cath Abdomen: Soft, nontender, nondistended, positive bowel sounds x4 Extremities: +2 pulses bilaterally radialis/ dorsalis pedis, no cyanosis, +1 pitting edema bilateral lower extremity Neuro: Awake alert oriented x3 Psych: Normal mood and affect G/U: No Ortega Skin: no rashes, warm and dry Lymphatic: no cervical or axillary lymphadenopathy Results & Data Results & Data ([facility]) Vital Signs (Past 12 Hours) Vital Signs Temp Pulse Resp BP Pulse Ox O2 Del Method O2 Flow Rate 07/24/22 08:20 117 H 33 H 129/71 92 Nasal Cannula 4 07/24/22 07:27 117 H 22 97 Nasal Cannula 3 07/24/22 03:01 36.8 C 104 H 18 128/91 92 Nasal Cannula 07/23/22 23:11 36.8 C 108 H 18 125/71 91 Nasal Cannula 07/23/22 21:44 Nasal Cannula Laboratory Results 07/24/22 07:28 PG Care Time/CCT Total # of Minutes Spent Total Time Spent with Patient: Total time spent is greater than 50% in coordination of care (as documented) at patient's floor/unit and/or counseling patient: Coding Level of Care Code 84884 Subseq Hosp Care Lvl 3 Diagnoses Empyema lung J86.9 Small cell lung cancer C34.90 Metastatic cancer C79.9
[2022-07-24 10:23] LABS: Hematocrit (blood only) 27.7 % (40.1-51.0); Hemoglobin 9.7 g/dl (14.0-18.0); Mean Corpuscular Hemoglobin 29.5 pg (25.0-34.0); Mean Corpuscular Volume 84.2 fL (80.0-100.0); Mean Platelet Volume 10.2 fL (9.4-12.4); Nucleated RBC # (auto) 0.03 K/uL (0-0); Nucleated RBC % (auto) 0.1 %; Platelet Count 656 K/uL (130-400); RDW Coefficient of Variation 16.6 % (11.5-14.5); RDW Standard Deviation 49.8 fL (36.4-46.3); Red Blood Count 3.29 M/uL (4.63-6.08); White Blood Count 44.09 K/ul (4.8-10.8)
[2022-07-24] MEDS: MoRPHine SULFATE PCA 30 MG/30 ML IV PRN ×2 (11:04→11:11)
--- NOTE | 2022-07-24 12:24 | XRay Report ---
XR chest 1V portable CLINICAL HISTORY: chest tube TECHNIQUE: Single frontal radiograph of the chest was obtained. Comparison: Comparison is made to chest radiograph 07/23/2022 FINDINGS: A port catheter is seen. Previously noted left chest tube has been removed. The cardiomediastinal kami houette is obscured. Obscuration of the left hemithorax is again noted. Stable appearance of left ple ural effusion. IMPRESSION: 1. Stable left pleural effusion status post removal of chest tube. No pneumothorax. 2. Stable opacification of the left hemithorax with a known mass lesion. ACT 112: Negative or not required by law. Electronically signed by: Jaiden Trent M.D. 07/24/2022 12:23 PM
--- NOTE | 2022-07-24 13:02 | Palliative Care Progress Note ---
Date of Service July 24, 2022 Assessment & Plan (1) Palliative care encounter: Plan: Diogenes continues to steadily decline. He is feeling weaker, more tired and it has been harder to breathe. he has been using PRN pain meds more often due to pain and air hunger from his severe/terminal cancer. He feels the change we anticipated are beginning to happen. Diogenes reaffirms desire to focus on comfort and QOL at this time. The chest tube he feels is offering some relief, so he is willing to continue this intervention.We discussed the changes he may experience which would indicate to medical teams that time was running out and I reviewed prognosticating when prognosis is a week or less includes the martin signs of: non-reactive pupils, loss of radial pulse, minimal urine output, inability to close eyelids, Orlin-mandel breathing, grunting of vocal cords, mandibular breathing, rattle, etc. (from: Kimberly Harry, Rosey K, Ge R, Sandra G, Deven Palacio. A Diagnostic Model for Impending in Cancer Patients: Preliminary Report. Cancer. 2015 Aug 01 ;12121):6641-21. pubmed.ncbi.nlm.nih.gov/02129121 https://pubmed.ncbi.nlm.nih.gov/89932729/ ) I advised Diogenes while I do not feel he is actively dying at this moment, he may be transitioning to a more end of life stage, where the continued decline,weakness, anorexia and increasing pain/symptom burden are indicators of shorter prognosis. I reassured him the medical teams remain committed to assuring he does not suffer. he expressed appreciation for this. He reiterates knowing he does not have much time. He is happy to have reconciled with his son, this has brought him a lot fo peace and happiness. I was unable to have a more in-depth discussion about transitioning to comfort plan of care in hospital because pt needed to sleep/take a rest. I will follow up on this later. (2) Cancer related pain: Plan: Pt for now does not want any changes. he is using SPECIAL DELIVERY CLERK bolus a bit more than last week but does not feel he needs more than what he has been using. No changes for now to SPECIAL DELIVERY CLERK bolus only morphine nor to his TDF dose. (3) Dyspnea and respiratory abnormalities: Plan: Se above, worsening dyspnea likely progressive cancer/terminal syndrome (4) Weakness generalized: (5) Acute respiratory failure with hypoxia: (6) Encounter for end of life education, guidance and counseling: (7) Empyema of left pleural space: (8) Social isolation: (9) Metastatic cancer: Plan: Patient's Palliative Prognostic Score (PaP) Score= 17.5 points Interpretation:30-day survival probability <30% https://www.[employer].co/bdulbcorqd-azpbornuuv-crvad-bsz-pacylzofeb-702/ Patient's Palliative Prognostic Index (PPI) Score = 11 points WAS 8.5 at initial eval Note:If the PPI is greater than 6.0, survival is less than three weeks (Sensitivity - 80%; Specificity - 85%). https://www.[employer]/njadnzncdh-xoogdgovik-yymry-lkd-qjhrhdfvzq-870/ (10) Small cell lung cancer: (11) COPD (chronic obstructive pulmonary disease): (12) Metastatic cancer to brain: (13) Metastatic non-small cell lung cancer: Plan Palliative prognostics are rising. Short anticipated survival. Would recc moving to comfort care when possible, see discussion with pt above. TS 40min Mere Villatoro DNP Clinical Director, Palliative Medicine Admission and Anticipated Discharge Date Admission Date: July 18, 2022 Subjective Patient was moved to ICU over the weekend, remains on monitored status. Chest tube on left continues to drain he is still feeling SOB, using SPECIAL DELIVERY CLERK 3-4 times, last 24 record approx 8 uses. feels patch at current dose ok appetite declining denies n/v/d/c feeling generally weaker Seems tired/sleepy today, appears fatigued mood subdued no family present Review of Systems Review of Systems: All systems reviewed & are unremarkable except as noted in Subjective Physical Exam 2 Physical Exam: Constitutional: + distress, tired appearing, face flushed HEENT: bitemp wasting, EOMI, PERRLA, dentition poor Respiratory system: diminished left > right, nearly absent at left base; faint wheeze, +bilat left > right rhonchi, + crackles; +use of accessory muscles noted, +conversational dyspnea +chest tube on left; mild tenderness at side with gentle palpation CVS: S1S2, tachy, mild JVD Abdomen: non tender, BS+ Extremities: +2 BLE edema, this is new from my exam on Sunday; strength diminished Neuro: AAOx3, generalized weakness, tired. intermittently drifting off during conversation Psych: subdued Skin: pale, mild diaphoresis, face flushed. Results & Data ([facility]) Vital Signs (Past 12 Hours) Vital Signs Temp Pulse Pulse Resp BP Pulse Ox O2 Del Method 07/24/22 06:20 119 H 07/24/22 12:25 36.8 C 107 H 26 H 120/94 95 Nasal Cannula 07/24/22 08:00 Nasal Cannula 07/24/22 11:21 113 H 22 90 Nasal Cannula 07/24/22 08:20 117 H 33 H 129/71 92 Nasal Cannula 07/24/22 07:27 117 H 22 97 Nasal Cannula 07/24/22 03:01 36.8 C 104 H 18 128/91 92 Nasal Cannula O2 Flow Rate 07/24/22 06:20 07/24/22 12:25 4 07/24/22 08:00 4 07/24/22 11:21 4 07/24/22 08:20 4 07/24/22 07:27 3 07/24/22 03:01 Laboratory Results Labs and imaging reviewed Diagnostic Findings CXR today: 1. Stable left pleural effusion status post removal of chest tube. No pneumothorax. 2. Stable opacification of the left hemithorax with a known mass lesion. PG Care Time/CCT Total # of Minutes Spent Total Time Spent: 60 Total Time Spent with Patient: Total time spent is greater than 50% in coordination of care (as documented) at patient's floor/unit and/or counseling patient: I spent 60 minutes overall addressing this case: 15 in medical data review/discussion with referring provider(s) and/or preparation for the visit 30 in direct interaction with the patient 12 Advance Care Planning/Goals of Care discussions as detailed above in note (must be >16min) 5 in subsequent review and synthesis of assessment and plan 5 in communicating with other providers regarding the patient's case: primary team [place] [address] Subseq Hosp Care Lvl 3 Patient Type Established History Comprehensive Exam Comprehensive Medical Decision Making High Complexity Diagnoses Palliative care encounter Z51.5 Cancer related pain G89.3 Dyspnea and respiratory abnormalities R06.00; R06.89 Weakness generalized R53.1 Acute respiratory failure with hypoxia J96.01 Encounter for end of life education, guidance and counseling Empyema of left pleural space J86.9 Social isolation Z60.4 Metastatic cancer C79.9 Small cell lung cancer C34.90 COPD (chronic obstructive pulmonary disease) J44.9 Metastatic cancer to brain C79.31 Metastatic non-small cell lung cancer C34.90
[2022-07-24] MEDS: SODIUM CHLORIDE 0.9% 1000ML 1,000 ML IV SCH (14:28)
--- NOTE | 2022-07-24 14:49 | Hospitalist Progress Note ---
Date of Service July 24, 2022 Assessment & Plan (1) Acute respiratory failure with hypoxia: Plan: Patient small cell lung cancer presents with empyema patient status post pigtail drainage. Chest tube removed on 07/24 due to air leak. - Patient not a candidate for VATS assisted decortication given his malignancy. - Continue antibiotic therapy with Unasyn - Appreciate pulmonary input - Plan had been to do CT chest, but he was not able participate today. -> Consideration for worsening empyema. (2) Metastatic cancer: Plan: Metastatic small cell lung cancer. - Oncology consultation appreciated. - The patient has opted for hospice care. - Palliative care consultation appreciated. (3) Small cell lung cancer: Plan: As above (4) Postobstructive pneumonia: Plan: Was on Zosyn and azithromycin. Sputum cx and pleural culture from 07/18 & 07/19 grew E. coli and some anaerobes. - Based on isolation now changed to IV Unasyn pulmonary following (5) Pleural effusion, left: Plan: Left thoracentesis completed on 07/19 with placement of left chest tube. Empyema. Completed MIST2 protocol. As above, chest tube was dislodged and removed on 07/24. - As above (6) History of pulmonary embolism: Plan: Treated with Eliquis. (7) COPD (chronic obstructive pulmonary disease): Plan: No acute exacerbation. - Plan as above (8) Coronary artery disease: Plan: S/p three coronary artery stents. Reports no chest pain. - Continue oral meds as able. (9) Heartburn: Plan: - Continue pantoprazole 40mg PO daily (10) Metastatic non-small cell lung cancer: Plan: Prior treatment with GammaKnife surgery and Keytruda. Plan VTE Prophylaxis - SCDs, defer heparin products at this time as he is moving to comfort measures. Admission and Anticipated Discharge Date Admission Date: July 18, 2022 Subjective Very dyspneic today even with getting up and moving around a bit with nurses doi ng toileting. Productive cough as well. Physical Exam Constitutional: WD/WN, vitals as above Eyes: EOM intact bilaterally; no conjunctival abnormality ENMT: external ear and nose normal, oropharynx normal Neck: trachea midline, no thyromegaly normal visual inspection Respiratory: normal respiratory effort, lungs clear to auscultation no respiratory distress Cardiovascular: RRR, no murmur, no edema Gastrointestinal (Abdomen): Inspection/Auscultation: abdomen normal to inspection; abdomen not distended Musculoskeletal: no cyanosis or clubbing, extremities motor strength 5/5 Skin: no rashes, warm and dry Neurologic: moves all extremities and awake Psychiatric: Orientation: alert, oriented to person and cooperative Results & Data Results & Data ([facility]) Vital Signs (Past 12 Hours) Vital Signs Temp Pulse Pulse Resp BP Pulse Ox O2 Del Method 07/24/22 14:31 109 H 22 90 Nasal Cannula 07/24/22 06:20 119 H 07/24/22 12:25 36.8 C 107 H 26 H 120/94 95 Nasal Cannula 07/24/22 08:00 Nasal Cannula 07/24/22 11:21 113 H 22 90 Nasal Cannula 07/24/22 08:20 117 H 33 H 129/71 92 Nasal Cannula 07/24/22 07:27 117 H 22 97 Nasal Cannula 07/24/22 03:01 36.8 C 104 H 18 128/91 92 Nasal Cannula O2 Flow Rate 07/24/22 14:31 4 07/24/22 06:20 07/24/22 12:25 4 07/24/22 08:00 4 07/24/22 11:21 4 07/24/22 08:20 4 07/24/22 07:27 3 07/24/22 03:01 PG Care Time/CCT Total # of Minutes Spent Total Time Spent with Patient: Total time spent is greater than 50% in coordination of care (as documented) at patient's floor/unit and/or counseling patient: Coding Level of Care Code 64501 Subseq Hosp Care Lvl 2 Diagnoses Acute respiratory failure with hypoxia J96.01 Metastatic cancer C79.9 Small cell lung cancer C34.90 Postobstructive pneumonia J18.9 Pleural effusion, left J90 History of pulmonary embolism Z86.711 COPD (chronic obstructive pulmonary disease) J44.9 Coronary artery disease I25.10 Heartburn R12 Metastatic non-small cell lung cancer C34.90
[2022-07-25] MEDS: MoRPHine SULFATE PCA 30 MG/30 ML IV PRN ×2 (00:30→09:37)
[2022-07-25] MEDS: CHECK fentaNYL PATCH PLACEMENT SCH ×3 (01:34→15:01)
[2022-07-25] MEDS: AMPICILLIN/SULBACTAM SOD 3,000 MG in 0.9 % SODIUM CHLORIDE 100 ML IV SCH ×2 (03:01→08:24)
[2022-07-25] MEDS: SODIUM CHLOR 7% 4 ML NEB NEB SCH (07:05)
[2022-07-25] MEDS: ALBUT/IPRATROP 3MG/0.5MG NEB 3 ML VIAL NEB SCH ×2 (07:05→11:05)
--- NOTE | 2022-07-25 07:15 | XRay Report ---
XR chest 1V portable HISTORY: 57 years-old Male chest tube status post placement of a chest tube COMPARISON: Chest radiograph 07/24/2022, CTA chest 07/18/2022. TECHNIQUE: AP view of the chest FINDINGS: Cardiomediastinal and hilar silhouettes are unchanged. Right IJ Cixijf-x-Kyte catheter distal tip pro jects over the right atrium. Coronary arterial stent. Mild pulmonary vascular congestion. No chest tu be identified. Diffuse opacification of the left hemithorax is unchanged. No pneumothorax identified. The bones appear grossly intact. IMPRESSION: 1. No chest tube or pneumothorax identified. 2. Left pleural effusion redemonstrated. The large mass within the left hemithorax is better apprecia davi on the comparison CTA of the chest. ACT 112: Negative or not required by law. The above report was generated using voice recognition software. It may contain grammatical, syntax o r spelling errors. Electronically signed by: Grayson Ruiz M.D. 07/25/2022 7:14 AM
[2022-07-25 07:51] LABS: Hematocrit (blood only) 28.2 % (40.1-51.0); Hemoglobin 9.7 g/dl (14.0-18.0); Mean Corpuscular Hemoglobin 29.1 pg (25.0-34.0); Mean Corpuscular Hgb Conc 34.4 g/dL (32.0-36.0); Mean Corpuscular Volume 84.7 fL (80.0-100.0); Mean Platelet Volume 10.3 fL (9.4-12.4); Nucleated RBC # (auto) 0.02 K/uL (0-0); Platelet Count 641 K/uL (130-400); RDW Coefficient of Variation 17.2 % (11.5-14.5); RDW Standard Deviation 50.3 fL (36.4-46.3); Red Blood Count 3.33 M/uL (4.63-6.08); White Blood Count 46.37 K/ul (4.8-10.8)
[2022-07-25 08:09] LABS: BUN Creatinine Ratio 48.5 (10-20); Calcium 9.6 mg/dl (8.5-10.1); Creatinine Clr Calc Pharmacy 124.4 ml/min; Est GFR (African American) 122.7 ml/min; Est GFR (Non-African American) 105.8 ml/min; Potassium 4.8 mmol/L (3.5-5.1)
[2022-07-25] MEDS: allopurinoL 300 MG TAB PO SCH (08:43)
[2022-07-25] MEDS: guaiFENesin 600 MG TABCR PO SCH (08:43)
[2022-07-25] MEDS: PANTOprazole 40 MG TAB PO SCH (08:49)
--- NOTE | 2022-07-25 09:14 | Pulmonology Progress Note ---
Date of Service July 25, 2022 Assessment & Plan (1) Empyema lung: (2) Small cell lung cancer: (3) Metastatic cancer: Plan Impression: 57-year-old male with metastatic small cell lung cancer presenting with large left empyema (pansensitive E. coli). He is status post pigtail rosa inage and is currently undergoing mist 2 protocol. -- Empyema Left-sided, s/p mist 2 protocol Chest tube placed 07/20/2022, removed 07/23/2022 Pleural fluid culture growing E. coli pansensitive, Streptococcus intermedius Currently on Unasyn. Would recommend to continue with antibiotics for total of 21 days --Acute on chronic hypoxic respiratory failure Multifactorial Underlying history of small cell lung cancer plus left-sided pleural effusion --Small cell cancer of the lung Stage IV --COPD Continue with DuoNebs Hypertonic saline and Mucinex to help bring up the phlegm Plan: X-ray does not show any significant change compared to yesterday. Continue with antibiotic. Unable to tolerate CT chest Overall prognosis of the patient is poor. Case was discussed with Dr. Orlando Please note the above document was generated using voice recognition software. It may contain grammatical, syntax or spelling errors.Any formal questions or concerns about the content, text or information contained within the body of this dictation should be directly addressed to the provider for clarification. Admission and Anticipated Discharge Date Admission Date: July 18, 2022 Subjective Patient seen and examined at bedside. No acute distress He has been getting the SKIN GRADER pump he was somnolent at time of examination. Denied any significant headache. Occasional chest pain. He was saturating 92-93% on 5 L nasal cannula. Review of Systems Review of Systems: All systems reviewed & are unremarkable except as noted in Subjective and Unobtainable due to reduced consciousness Physical Exam Physical Exam: Constitutional: Respiratory distress HEENT: EOMI, PERRLA Respiratory system: Decreased air entry bilaterally, more decreased on the left side, no wheeze, rhonchi, positive crackles bilaterally CVS: S1-S2 positive, no murmurs or gallops, positive Port-A-Cath Abdomen: Soft, nontender, nondistended, positive bowel sounds x4 Extremities: +2 pulses bilaterally radialis/ dorsalis pedis, no cyanosis, +2 pitting edema bilateral lower extremity Neuro: Somnolent Psych: Flat mood G/U: No Ortega Skin: no rashes, warm and dry Lymphatic: no cervical or axillary lymphadenopathy Results & Data Results & Data ([facility]) Vital Signs (Past 12 Hours) Vital Signs Temp Pulse Resp BP Pulse Ox O2 Del Method O2 Flow Rate 07/25/22 07:39 36.6 C 114 H 22 112/75 84 L Nasal Cannula 4 07/25/22 07:06 113 H 16 92 Nasal Cannula 4 07/25/22 03:22 36.5 C 109 H 20 137/83 90 Nasal Cannula 4 07/24/22 23:05 36.5 C 113 H 18 129/82 91 Nasal Cannula 4 Laboratory Results 07/25/22 07:10 07/25/22 07:10 PG Care Time/CCT Total # of Minutes Spent Total Time Spent with Patient: Total time spent is greater than 50% in coordination of care (as documented) at patient's floor/unit and/or counseling patient: Coding Level of Care Code 51334 Subseq Hosp Care Lvl 2 Diagnoses Empyema lung J86.9 Small cell lung cancer C34.90 Metastatic cancer C79.9
--- NOTE | 2022-07-25 09:42 | Palliative Care Progress Note ---
Date of Service July 25, 2022 Assessment & Plan (1) Encounter for end of life care: Plan: Diogenes is transitioning from a process of living to a process of dying. He is no longer decisional, but rather more agitated, restless and confused. He is demonstrating more resp distress, grimacing more and labored breathing at rest.I called his son and NOK decision maker John. John states while visiting with his Dad last night he saw these changes and felt the end was nearing. He would like patient moved to comfort care and no further aggressive interventions. He does not feel any further testing/labs/imaging will be meaningful beenfit and would like these stopped as well. I have moved pt to comfort care and written orders. I have stopped all non essential and non comfort orders. In my conversations with John, I offered him additional spiritual care and industrial safety and health specialist support here in the hospital. He states that his father has always been relatively private about spiritual care needs but has been comfortable with John's [id number], who is a practicing dry room attendant. Still plans to ask him to come visit the patient later this evening. For now, he politely declines hospital nurse substance abuse services. John and I discussed changes pt may move through in the dying process including but not limited to sleeping more, disorientation when awake, restlessness, diminished senses/inability to respond to stimulus although ability to be aware of them remains intact longer, changes in body temperatures, skin changes/mottling/cyanosis, respiratory pattern changes, oral secretions. Family verbalized understanding. The goal is to assure a peaceful . I have notified the primary team and discussed with primary nurse. Plan of care reviewed and in agreement by all teams. Comfort care orders have been written. Nonessential and on comfort focused interventions have been stopped. I have also discontinued the monitors. (2) Palliative care encounter: (3) Cancer related pain: Plan: I have modified patient's morphine orders as follows: Morphine 2 mg IV every 15 minutes as needed for pain or air hunger Morphine 4 mg IV every 30 minutes as needed for very severe air hunger or pain I have stopped the continuous rate morphine infusion with WALLPAPER INSTALLER boluses patient is no longer able to operate the WALLPAPER INSTALLER bolus button. I have added additional orders for symptom management including lorazepam IV for anxiety and as well as IV Haldol for delirium, terminal restlessness or agitation. I reviewed all the above with the primary nursing team. (4) Dyspnea and respiratory abnormalities: (5) Acute respiratory failure with hypoxia: (6) Weakness generalized: Plan As outlined above. Thank you for allowing us to participate in the ongoing care of this patient. Please don't hesitate to call or page with any additional concerns. Dr. Mere Villatoro DNP Director, Palliative Care Admission and Anticipated Discharge Date Admission Date: July 18, 2022 Subjective Worsening resp status, now seated in bed at 90 degrees, tripod position at times, 15lpm Mask in place. He is lethargic and not able to meaningfully interact/answer questions. He is diaphoretic, dyspneic and in resp distress, using accessory muscles to breathe. BLE edema is worsening. Abdomen today softly distended. Review of Systems Review of Systems: Unobtainable due to cognitive status Physical Exam Physical Exam: Constitutional: + distress, agitated, restless, repeatedly removing oxygen mask, pulling at lines and monitoring devices. HEENT: bitemp wasting, PERRLA/sluggish Respiratory system: Decreased air entry bilaterally, more decreased on the left side, no wheeze, coarse bronchitic rhonchi, +positive crackles bilaterally CVS: S1S2, tachy, +Mediport Abdomen: Softly distended, BS decreased. Extremities: +2-3 pitting edema bilateral lower extremity Neuro: fatigued, weaker overall, opens eyes when name is called but cannot focus or follow discussion, unable to follow commands, restless and agtated, trying to remove lines/masks, devices, trying to sit up/get out of bed, needs frequent reassessment by nursing teams. Psych: agitated and confused Skin: pale, diaphoretic, some early mottling BLE, there are cyanotic changes noted to nailbeds Results & Data ([facility]) Vital Signs (Past 12 Hours) Vital Signs Temp Pulse Resp BP Pulse Ox O2 Del Method O2 Flow Rate 07/25/22 07:39 36.6 C 114 H 22 112/75 84 L Nasal Cannula 4 07/25/22 07:06 113 H 16 92 Nasal Cannula 4 07/25/22 03:22 36.5 C 109 H 20 137/83 90 Nasal Cannula 4 07/24/22 23:05 36.5 C 113 H 18 129/82 91 Nasal Cannula 4 PG Care Time/CCT Total # of Minutes Spent Total Time Spent: 90 Total Time Spent with Patient: Total time spent is greater than 50% in coordination of care (as documented) at patient's floor/unit and/or counseling patient: I spent 90 minutes overall addressing this case: 15 in medical data review/discussion with referring provider(s) and/or preparation for the visit 25 in direct interaction with the patient 25 Goals of Care discussions as detailed above in note (must be >16min) with patient's son/surrogate HCP. Pt is not decisional. 10 in subsequent review and synthesis of assessment and plan 15 in communicating with other providers regarding the patient's case: Nursing, primary team, nurse substance abuse service. [place] [address] Subseq Hosp Care Lvl 3 Patient Type Established History Comprehensive Exam Comprehensive Medical Decision Making High Complexity Diagnoses Encounter for end of life care Z51.5 Palliative care encounter Z51.5 Cancer related pain G89.3 Dyspnea and respiratory abnormalities R06.00; R06.89 Acute respiratory failure with hypoxia J96.01 Weakness generalized R53.1
[2022-07-25] MEDS ORDERED: LORazepam 1 MG in SYRINGE 0 ML IV PRN ×2 (11:35→17:02)
[2022-07-25] MEDS ORDERED: GLYCOPYRROLATE 0.2 MG/ML VIAL IV PRN ×2 (11:35→17:02)
[2022-07-25] MEDS ORDERED: MoRPHine SULFATE 4 MG/ML 1 ML CARP\\VIAL IV PRN ×2 (11:35→17:02)
[2022-07-25] MEDS ORDERED: HALOPERIDOL LACTATE 5 MG/ML 1 ML VIAL IV PRN ×2 (11:53→17:06)
[2022-07-25] MEDS: MoRPHine SULFATE 2 MG/ML CARP IV PRN ×2 (12:03→14:43)
--- NOTE | 2022-07-25 12:34 | Hospitalist Progress Note ---
Date of Service July 25, 2022 Assessment & Plan (1) Acute respiratory failure with hypoxia: Plan: Patient small cell lung cancer presents with empyema patient status post pigtail drainage. Chest tube removed on 07/24 due to air leak. - Patient not a candidate for VATS assisted decortication given his malignancy. - Appreciate pulmonary input - Plan had been to do CT chest, but he was not able to do so. -> Consideration for worsening empyema. Discussed with pulm on 07/24 & 07/25. Presumed to be worsening cancer without any ability to improve symptoms or alter course. - Made comfort on 07/25 as patient was in severe distress with huge work of breathing. Palliative assisting with adjusting medications. Possibly move to inpatient hospice. (2) Metastatic cancer: Plan: Metastatic small cell lung cancer. - Oncology consultation appreciated. - The patient has opted for hospice care. - Palliative care consultation appreciated. Plan as above. (3) Small cell lung cancer: Plan: As above (4) Postobstructive pneumonia: Plan: Was on Zosyn and azithromycin. Sputum cx and pleural culture from 07/18 & 07/19 grew E. coli and some anaerobes. - Stop abx as above for comfort care. (5) Pleural effusion, left: Plan: Left thoracentesis completed on 07/19 with placement of left chest tube. Empyema. Completed MIST2 protocol. As above, chest tube was dislodged and removed on 07/24. - As above (6) History of pulmonary embolism: Plan: Treated with Eliquis. Stopped for comfort. (7) COPD (chronic obstructive pulmonary disease): Plan: No acute exacerbation. - Plan as above (8) Coronary artery disease: Plan: S/p three coronary artery stents. Reports no chest pain. (9) Heartburn: Plan: - Stop for comfort measures. (10) Metastatic non-small cell lung cancer: Plan: Prior treatment with GammaKnife surgery and Keytruda. (11) Comfort measures only status: Plan VTE Prophylaxis - SCDs, defer heparin products at this time as he is moving to comfort measures. Admission and Anticipated Discharge Date Admission Date: July 18, 2022 Subjective Very short of breath this AM. Getting slightly confused. Wants to sit up, but keeps almost falling forward. Not able to answer questions due to his shortness of breath. Review of Systems Review of Systems: Unobtainable due to cognitive status and Unobtainable due to reduced consciousness Physical Exam Constitutional: + acute distress, + thin and + lethargic Eyes: EOM intact bilaterally; no conjunctival abnormality ENMT: external ear and nose normal, oropharynx normal Neck: trachea midline, no thyromegaly normal visual inspection Respiratory: + respiratory distress, + labored breathing, + tachypneic and + prolonged expiratory phase; + not able to speak in complete sentence Cardiovascular: Rate/Rhythm: regular rhythm and + tachycardic Gastrointestinal (Abdomen): Inspection/Auscultation: abdomen normal to inspection; abdomen not distended Musculoskeletal: no cyanosis or clubbing, extremities motor strength 5/5 Skin: no rashes, warm and dry Neurologic: moves all extremities and awake Psychiatric: Orientation: + not alert, + not oriented to person and + uncooperative Results & Data Results & Data ([facility]) Vital Signs (Past 12 Hours) Vital Signs Temp Pulse Resp BP Pulse Ox O2 Del Method O2 Flow Rate 07/25/22 11:42 36.4 C 113 H 20 146/85 H 96 Nasal Cannula, Oxymask 15 07/25/22 07:39 36.6 C 114 H 22 112/75 84 L Nasal Cannula 4 07/25/22 07:06 113 H 16 92 Nasal Cannula 4 07/25/22 03:22 36.5 C 109 H 20 137/83 90 Nasal Cannula 4 PG Care Time/CCT Total # of Minutes Spent Total Time Spent with Patient: Total time spent is greater than 50% in coordination of care (as documented) at patient's floor/unit and/or counseling patient: 45 Coding Level of Care Code 78418 Subseq Hosp Care Lvl 3 Diagnoses Acute respiratory failure with hypoxia J96.01 Metastatic cancer C79.9 Small cell lung cancer C34.90 Postobstructive pneumonia J18.9 Pleural effusion, left J90 History of pulmonary embolism Z86.711 COPD (chronic obstructive pulmonary disease) J44.9 Coronary artery disease I25.10 Heartburn R12 Metastatic non-small cell lung cancer C34.90 Comfort measures only status Z51.5
[2022-07-25] MEDS ORDERED: ALBUT/IPRATROP 3MG/0.5MG NEB 3 ML VIAL NEB PRN (13:46)
[2022-07-25] MEDS ORDERED: CHECK SCOPOLAMINE PATCH PLACEMENT SCH (16:00)
--- NOTE | 2022-07-25 16:40 | Discharge Summary ---
Date of Service July 25, 2022 Admission HPI Per Admitting Provider Diogenes Davila is a 57 year old male direct admission from the [facility] due to newly diagnosed metastatic small cell lung cancer on liver biopsy for induction chemotherapy with post operative pneumonitis. Discussed care with Dr Garcia prior to admission. The patient reports significant slow worsening of his shortness of breath since discharge on June 26. He was hospitalized at [facility] from June 22 - 2021 due to chest pain. A large lung mass with metastatic disease to his liver was diagnosed at that time and he was set up for outpatient liver biopsy which he had on July 03, 2022. He was started on Eliquis 5mg PO daily after this although I am unclear on the reason for the odd dose and why - the patient just reports they were worried about blood clots given his history. Pathology on liver biopsy showed small cell lung cancer and he was referred to the [facility] where he was seen by Dr Garcia today and recommended direct admission. He has a prior diagnosis of non-small cell lung cancer (lung adenocarcinoma) of the right lower lobe diagnosed in 2016 with mets to his brain treated with GammaKnife SRS in Oct 2017, carboplatin/pemetrexed and Keytruda -> switched to Keytruda alone after molecular testing with a lapse in treatment due to insurance issues in 2018. He had an episode of sepsis in August 2019 requiring hospitalization. In November he was diagnosed with tiny nonocclusive pulmonary emboli and was treated with Eliquis for 6 months. Reportedly multiple missed appointments following this until his hospitalization recently in June as outlined above. The patient reports worsening of his chest pain on the left side, severity 6/10, no radiation, back left around his scapula, worse on inspiration. Cough has become much worse and unable to cough up what he feels he needs to. Phlegm he is coughing up is brown. Shortness of breath slowly progressively worse the last three weeks. No fever or chills. No acute sudden deterioration or new symptoms in the last 24 hours. Last took Eliquis yesterday morning. He reports this is his only prescribed medication, although his home meds from the [facility] show him taking metoprolol tartrate 25mg PO daily and he was recently discharged on Symbicort and Spiriva - he reports only have a red emergency inhaler at home. Principal Diagnosis Small cell lung cancer Discharge Exam Constitutional + acute distress, + thin and + lethargic Eyes EOM intact bilaterally; no conjunctival abnormality ENMT external ear and nose normal, oropharynx normal Neck trachea midline, no thyromegaly normal visual inspection Respiratory + respiratory distress, + labored breathing, + tachypneic and + prolonged expiratory phase; + not able to speak in complete sentence Cardiovascular RRR, no murmur, no edema Rate/Rhythm: regular rhythm and + tachycardic Gastrointestinal (Abdomen) Inspection/Auscultation: abdomen normal to inspection; abdomen not distended Musculoskeletal no cyanosis or clubbing, extremities motor strength 5/5 Skin no rashes, warm and dry Neurologic moves all extremities and awake Psychiatric Orientation: + not alert, + not oriented to person and + uncooperative Discharge Data Allergies Allergy/AdvReac Type Severity Reaction Status Date / Time No Known Allergies Allergy Unknown Verified 07/03/22 08:37 Consultations 07/18/22 16:20 Consult Oncology Routine 07/18/22 17:43 Consult Pulmonology Routine 07/18/22 17:49 Consult Palliative Care Routine Procedures Performed Operation Date: 07/19/22 07:00 <No data on this case meets the specified criteria> Ordered Studies 07/18/22 17:43 CT Abd and Pelvis [CT abd pelvis IV con only] Routine 07/18/22 17:55 CT for pulmonary embolism PE [CT angio chest PE protocol] Stat 07/19/22 10:14 US point of care ultrasound Urgent Hospital Course (1) Acute respiratory failure with hypoxia: Patient small cell lung cancer presents with empyema patient status post pigtail drainage. Chest tube removed on 07/24 due to air leak. - Patient not a candidate for VATS assisted decortication given his malignancy. - Appreciate pulmonary input - Plan had been to do CT chest, but he was not able to do so. -> Consideration for worsening empyema. Discussed with pulm on 07/24 & 07/25. Presumed to be worsening cancer without any ability to improve symptoms or alter course. - Made comfort on 07/25 as patient was in severe distress with huge work of breathing. Palliative assisting with adjusting medications. Possibly move to inpatient hospice. (2) Metastatic cancer: Metastatic small cell lung cancer. - Oncology consultation appreciated. - The patient has opted for hospice care. - Palliative care consultation appreciated. Plan as above. (3) Small cell lung cancer: As above (4) Postobstructive pneumonia: Was on Zosyn and azithromycin. Sputum cx and pleural culture from 07/18 & 07/19 grew E. coli and some anaerobes. - Stop abx as above for comfort care. (5) Pleural effusion, left: Left thoracentesis completed on 07/19 with placement of left chest tube. Empyema. Completed MIST2 protocol. As above, chest tube was dislodged and removed on 07/24. - As above (6) History of pulmonary embolism: Treated with Eliquis. Stopped for comfort. (7) COPD (chronic obstructive pulmonary disease): No acute exacerbation. - Plan as above (8) Coronary artery disease: S/p three coronary artery stents. Reports no chest pain. (9) Heartburn: - Stop for comfort measures. (10) Metastatic non-small cell lung cancer: Prior treatment with GammaKnife surgery and Keytruda. (11) Comfort measures only status: Plan VTE Prophylaxis - SCDs, defer heparin products at this time as he is moving to comfort measures. Total Time Total Time Spent Total Time Spent (In Minutes): 45 Discharge Plan Discharge Items Patient Disposition: Hospice - Medical Facility Reason For Visit: SMALL CELL LUNG CA Discharge Diagnosis: Small cell lung cancer Activity: Resume your previous activity Non-emergency contact: Primary Care Provider Call non-emergency contact if: your symptoms worsen Follow-up/Referrals: Rahat Caballero [Primary Care Provider] - Diet: Regular Addtl Attending Provider Instructions: Transfer to General Inpatient Hospice Pending Studies at Discharge: No Stand-Alone Forms: My [facility] Skilled Items Patient informed of condition?: Yes DNR: Yes Discharge Level of Care: Other Communicable Disease: No Discharge Prognosis: Deteriorating Lines: Peripheral IV Urinary Catheter: Yes Medications and DC Order Prescriptions: Continued omeprazole 20 mg Capsule,Delayed Release(Dr/Ec) 20 mg PO QAM Label Comments: buys over the counter Combivent Respimat 20-100 mcg/actuation mist 1 puff inhalation Q6H Qty: 4 0RF Eliquis 5 mg Tablet 5 mg PO QAM Discharge Orders: Discharge Order (Routine); Ordered 07/25/22 Ordered By: Carlitos Orlando Admission Data Admit Date/Time: 07/18/22 15:32 Attending Provider: Carlitos Orlando Admit Provider: Scar Gibbs Primary Care Provider: Rahat Caballero Other Providers: [place] ; [facility], ; [facility] ; Dwight Garcia ; Gilbert Fox ; Ginna Ozuna Coding Level of Care Code D/C DAY MANAGEMENT >30 MINS Diagnoses Acute respiratory failure with hypoxia J96.01 Metastatic cancer C79.9 Small cell lung cancer C34.90 Postobstructive pneumonia J18.9 Pleural effusion, left J90 History of pulmonary embolism Z86.711 COPD (chronic obstructive pulmonary disease) J44.9 Coronary artery disease I25.10 Heartburn R12 Metastatic non-small cell lung cancer C34.90 Comfort measures only status Z51.5
--- NOTE | 2022-07-25 16:46 | History & Physical Report ---
Date of Service July 25, 2022 Assessment & Plan (1) Acute respiratory failure with hypoxia: Plan: Patient small cell lung cancer presented with empyema patient status post pigtail drainage. Chest tube removed on 07/24 due to air leak. - Made comfort on 07/25 as patient was in severe distress with huge work of breathing. Palliative assisting with adjusting medications. * Morphine 2 mg/hr gtt * Morphine 4 mg Q15m for pain or shortness of breath * Glycopyrrolate 0.4 mg Q2h PRN for secretions * Lorazepam 1 mg IV Q2h PRN for agitation * Haldol 2 mg IV Q4h PRN for refractory agitation (2) Metastatic cancer: Plan: Metastatic small cell lung cancer. - Palliative care consultation appreciated. Plan as above. Admission and Anticipated Discharge Date Admission Date: July 18, 2022 History of Present Illness Primary Care Provider: Rahat Caballero 57yo M w/ metastatic small cell lung cancer who presents as in-hospital discharge/admission for general inpatient hospice. Allergies Allergy/AdvReac Type Severity Reaction Status Date / Time No Known Allergies Allergy Unknown Verified 07/03/22 08:37 Home Medications Medication Instructions Recorded Confirmed Type omeprazole 20 mg capsule,delayed 20 mg PO QAM 10/21/19 07/18/22 History release ipratropium 20 mcg-albuterol 100 1 puff inhalation Q6H #4 grams 06/26/22 07/18/22 Rx mcg/actuation mist for inhalation (Combivent Respimat) apixaban 5 mg tablet (Eliquis) 5 mg PO QAM 07/18/22 07/18/22 History Past Med/Surg History Medical History COPD (chronic obstructive pulmonary disease) Coronary artery disease S/p three stents Empyema lung Heartburn FREQUENT History of chemotherapy History of pneumonia FEW WEEKS AGO, RESOLVED History of pulmonary embolism Metastatic cancer to brain Metastatic non-small cell lung cancer DX 2018 Status post gamma knife treatment 10/16/17 Surgical History H/O arthroscopy of right knee History of bronchoscopy 09/28/17 History of heart artery stent Stents x 3 History of surgery Right ankle as a child History of surgery PORT, RIGHT UPPER CHEST Hx of cardiac catheterization 1ST CATH 2005 (X2 STENTS- LAD and OM), MOST RECENT CATH 2016 - (STENT X1 to RCA) S/P bronchoscopy with biopsy (10/31/19) Navigational Bronchoscopy with Biopsy Dr. Freeman 10-31-19 Family History Mother , 83yo Dementia Father , 67yo Diabetes Myocardial infarction Melanoma Cancer Brother , 57yo Cerebral aneurysm Brother Polio Sister Stroke Sister No problems noted. Sister Cancer Son No problems noted. Grandmother (Paternal) Cancer Social History Smoking Status: Current every day smoker Tobacco Type: Cigarettes Cigarettes Per Day: 20; Second Hand Exposure: No; Do You Dip or Chew Tobacco: No; Tobacco Cessation Education Requested by Patient: No Hx Alcohol Use: Yes Alcohol type: beer Alcohol type Comment: 6 beers/day; Hx Substance Use: No Preferred Language: Latvian Communication Ability: Effective Visual Impairment: No Limitations Hearing Ability: Normal Switchboard Installer Required: No Beliefs That Will Affect Care: Spiritual marital status: Current Living Situation: Alone Current Living Situation Comment: lives in vehicle current occupational status: retired 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 [place] How many Children do You have: 1 Other Information That Helps Us Care for You: No Feels Safe at Home: Yes caffeine: Yes (7 cups/day) during the past year weight has: remained stable Assistive Devices: None Physical Exam Constitutional: WD/WN, vitals as above + acute distress, + thin and + lethargic Eyes: EOM intact bilaterally; no conjunctival abnormality ENMT: external ear and nose normal, oropharynx normal Neck: trachea midline, no thyromegaly normal visual inspection Respiratory: + respiratory distress, + labored breathing, + tachypneic and + prolonged expiratory phase; + not able to speak in complete sentence Cardiovascular: Rate/Rhythm: regular rhythm and + tachycardic Gastrointestinal (Abdomen): Inspection/Auscultation: abdomen normal to inspection; abdomen not distended Skin: no rashes, warm and dry Neurologic: moves all extremities; + not awake Psychiatric: Orientation: + not alert, + not oriented to person and + uncooperative Results & Data Results & Data ([facility]) Vital Signs (Past 12 Hours) Vital Signs Temp Pulse Resp BP Pulse Ox O2 Del Method O2 Flow Rate 07/25/22 07:30 Oxymask 10 07/25/22 11:42 36.4 C 113 H 20 146/85 H 96 Nasal Cannula, Oxymask 15 07/25/22 07:39 36.6 C 114 H 22 112/75 84 L Nasal Cannula 4 07/25/22 07:06 113 H 16 92 Nasal Cannula 4 Code Status & VTE Plan VTE Prophylaxis Plan VTE Prophylaxis will be ordered: No PG Care Time/CCT Total # of Minutes Spent Total Time Spent with Patient: Total time spent is greater than 50% in coordination of care (as documented) at patient's floor/unit and/or counseling patient: Coding Level of Care Code 83440 Initial Inpt Care Lvl 3 Diagnoses Acute respiratory failure with hypoxia J96.01 Metastatic cancer C79.9
[2022-07-25] MEDS ORDERED: MoRPHine BOLUS from BAG IV PRN (17:02)
[2022-07-25] MEDS ORDERED: SCOPOLAMINE 1 MG TDSY TD ONE (17:06)
[2022-07-25] MEDS ORDERED: MoRPHine SULF/NSS 250 MG/250 ML BTL IV SCH (17:15)
== END 2022-07-25 16:58 | disposition hospice, inpatient (51) | DRG 177 ==
LOC: 3N 15:32 → SUATTDRO 15:32 → 2S 17:46 → 2E 07-22 05:47

== ENCOUNTER 2022-07-25 16:59 | Inpatient (IN) ==
[2022-07-25] MEDS ORDERED: LORazepam 1 MG in SYRINGE 0 ML IV PRN (17:24)
[2022-07-25] MEDS ORDERED: MoRPHine SULFATE 4 MG/ML 1 ML CARP\\VIAL IV PRN (17:24)
[2022-07-25] MEDS ORDERED: MoRPHine BOLUS from BAG IV PRN (17:24)
[2022-07-25] MEDS ORDERED: SCOPOLAMINE 1 MG TDSY TD ONE (17:24)
[2022-07-25] MEDS ORDERED: GLYCOPYRROLATE 0.2 MG/ML VIAL IV PRN (17:24)
[2022-07-25] MEDS ORDERED: HALOPERIDOL LACTATE 5 MG/ML 1 ML VIAL IV PRN (17:27)
[2022-07-25] MEDS ORDERED: MoRPHine SULF/NSS 250 MG/250 ML BTL IV SCH (17:30)
[2022-07-25] MEDS: MoRPHine BOLUS from BAG IV PRN ×2 (18:05→20:11)
[2022-07-25] MEDS: CHECK SCOPOLAMINE PATCH PLACEMENT SCH (18:16)
[2022-07-26] MEDS: CHECK SCOPOLAMINE PATCH PLACEMENT SCH ×2 (01:53→08:05)
--- NOTE | 2022-07-26 16:48 | Death Pronouncement Note ---
Date of Service July 26, 2022 Pronouncement Note Admission Date July 25, 2022 Date and Time of Date of : 07/26/22 Time of : 09:50 Preliminary Cause of (1) Empyema of left pleural space: (2) Small cell lung cancer: Summary Patient on comfort measures for small cell lung cancer. Patient at 9:50am. Additional Data Confirmation of : no pulse, no respirations, no heart sounds and pupils fixed and dilated Pronouncement Performed By: Attending Physician Family: at bedside Additional persons at bedside: camp coordinator Attending/PCP notified?: Yes Attending physician: Carlitos Orlando MD Coding Level of Care Code D/C DAY MANAGEMENT >30 MINS Diagnoses Empyema of left pleural space J86.9 Small cell lung cancer C34.90
--- NOTE | 2022-07-26 16:51 | Discharge Summary ---
Date of Service July 26, 2022 Principal Diagnosis Empyema of lung Small cell lung cancer Discharge Exam Constitutional Pupils: No response CV: No heart sounds RR: None Discharge Data Allergies Allergy/AdvReac Type Severity Reaction Status Date / Time No Known Allergies Allergy Unknown Verified 07/03/22 08:37 Hospital Course (1) Empyema of left pleural space: Due to E. coli, caused by lung cancer. Patient on comfort measures for small cell lung cancer. Patient at 9:50am. (2) Small cell lung cancer: Total Time Total Time Spent Total Time Spent (In Minutes): 35 Discharge Plan Discharge Items Patient Disposition: Other Date/Time: 07/26/22 09:50 Coding Level of Care Code D/C DAY MANAGEMENT >30 MINS Diagnoses Empyema of left pleural space J86.9 Small cell lung cancer C34.90
== END 2022-07-26 11:47 | disposition expired | DRG 951 ==
LOC: 2E 16:59 → 3E 22:17
DX: B96.20 Unspecified Escherichia coli [E. coli] as the cause of diseases classified elsewhere; C78.7 Secondary malignant neoplasm of liver and intrahepatic bile duct; Z86.711 Personal history of pulmonary embolism; J96.01 Acute respiratory failure with hypoxia; I25.10 Atherosclerotic heart disease of native coronary artery without angina pectoris; Z66 Do not resuscitate; J90 Pleural effusion, not elsewhere classified; R12 Heartburn; C34.31 Malignant neoplasm of lower lobe, right bronchus or lung; J18.9 Pneumonia, unspecified organism; J86.9 Pyothorax without fistula; Z51.5 Encounter for palliative care